=== PATIENT | female | born 1975 | race Caucasian/White ===

== ENCOUNTER 2016-10-28 15:04 | Emergency (ER) | payer SELFPAY ==
[~2016-10-28 15:04] MED LIST: FERR325T PO; METR-1 PO; PROV10TA PO
[2016-10-28 15:05] VITALS: BP 117/80; PULSE 106; RESP 15; TEMP 97.8; O2SAT 98
== END 2016-10-28 16:07 | disposition left against medical advice (07) ==
LOC: NED 15:04
DX: Z53.21 Procedure and treatment not carried out due to patient leaving prior to being seen by health care provider (principal)
CPT/HCPCS: 99281

== ENCOUNTER 2016-11-05 08:32 | Inpatient (IN) | payer OTHER ==
[~2016-11-05] VITALS: Ht 170.2 cm; Wt 55.2 kg
[2016-11-05 08:42] VITALS: BP 115/72; PULSE 94; RESP 22; TEMP 98.6; O2SAT 97
[2016-11-05] MEDS ORDERED: VIBR100C PO (08:47)
[2016-11-05] MEDS ORDERED: METR-1 PO (08:47)
[2016-11-05] MEDS ORDERED: SODIUM CHLOR 0.9% 1000 ML INJ 1,000 ML IV SCH (09:01)
[2016-11-05] MEDS ORDERED: HYDROmorphone HCL PF 1 MG/ML VIAL IVS ONE (09:15)
[2016-11-05] MEDS ORDERED: ONDANSETRON HCL 4 MG/2 ML VIAL IVP ONE (09:15)
[2016-11-05] MEDS ORDERED: SODIUM CHLORIDE 0.9% FLUSH 10 ML FLUSH IV FLUSH PRN (09:15)
--- NOTE | 2016-11-05 09:24 | PD ---
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 She states she is currently taking her PID medication. The patient also reports that she's had a history of anemia for which she's had to have a transfusion. She reports starting bleeding today. She also reports green-yellow discharge. The patient denies any fevers, chills. The patient is screaming out profanities in between the questioning. There are no other complaints time my examination. PFSH Past Medical History Anemia: Yes Blood Disorders: Yes ("GENETIC BLEEDING DISORDER") Bipolar Disorder: Yes Anxiety: Yes Depression: Yes Heart Rhythm Problems: No Cancer: No Cardiovascular Problems: No High Cholesterol: No Chest Pain: No Congestive Heart Failure: No Cerebrovascular Accident: No Diabetes: No Diminished Hearing: No Endocrine: No Genitourinary: No Hepatitis: Yes (TYPE C) Immune Disorder: No Musculoskeletal: No Neurologic: Yes Psychiatric: Yes (PTSD, ADHD) Reproductive: Yes (PT C/O " HEAVY MENSTRAL FLOW") Respiratory: No Integumentary: Yes (MULTIPLE SORES WITH SCABS, PT STATES " I PICK") Migraines: Yes Seizures: Yes Thyroid Disease: No Influenza Vaccination: Yes ?: Unknown : 3 Para: 1 Miscarriage: 1 : 1 Tubal Ligation: Yes Past Surgical History Arteriovenous Shunt: No Gynecologic Surgery: Yes (BIOPSIES ) Insulin Pump: No Joint Replacement: Yes (ACL REPAIR RIGHT KNEE) Social History Alcohol Use: No (denies) Tobacco Use: No (PT STATES STOPPED YESTERDAY) Substance Use: Yes (SMOKES CRACK ) Allergies-Medications (Allergen,Severity, Reaction): Coded Allergies: Contrast Media (Verified Allergy, Severe, Anaphylaxis- THROAT CLOSES, HIVES, 11/05/16) Codeine (Verified Adverse Reaction, Severe, Nausea/Vomiting, 11/05/16) Reported Meds & Prescriptions Reported Meds & Active Scripts Active Ferrous Sulfate 325 Mg Tab 325 Mg PO BID 30 Days Reported Vibramycin (Doxycycline Hyclate) 100 Mg Cap 100 Mg PO BID Flagyl (Metronidazole) 500 Mg Tab 500 Mg PO BID Review of Systems Except as stated in HPI: all other systems reviewed are Neg HENT: No: Headaches, Vertigo Respiratory: No: Cough, Shortness of Breath Gastrointestinal: Positive: Nausea, Abdominal Pain (pelvic), No: Vomiting Genitourinary: Positive: Pelvic Pain, Discharge, Vaginal Bleeding, No: Dysuria , Nocturia Musculoskeletal: No: Weakness, Pain Neurologic: No: Weakness, Dizziness, Headache Physical Exam Narrative GENERAL: Thin ill appearing female in no obvious respiratory distress. The patient is SKIN: Focused skin assessment warm/dry. HEAD: Atraumatic. Normocephalic. EYES: Pupils equal and round. No scleral icterus. No injection or drainage. ENT: No nasal bleeding or discharge. Mucous membranes pink and moist. NECK: Trachea midline. No JVD. CARDIOVASCULAR: Regular rate and rhythm. No murmur appreciated. RESPIRATORY: No accessory muscle use. Clear to auscultation. Breath sounds equal bilaterally. GASTROINTESTINAL: Abdomen soft, non-tender, nondistended. Hepatic and splenic margins not palpable. MUSCULOSKELETAL: No obvious deformities. No clubbing. No cyanosis. No edema. NEUROLOGICAL: Awake and alert. No obvious cranial nerve deficits. Motor grossly within normal limits. Normal speech. PSYCHIATRIC: Appropriate mood and affect; insight and judgment normal. Data Data Last Documented VS Vital Signs Date Time Temp Pulse Resp B/P Pulse Ox O2 Delivery O2 Flow Rate FiO2 11/05/16 09:28 16 97 Room Air 11/05/16 08:42 98.6 94 115/72 Orders Complete Blood Count With Diff (11/05/16 09:01) Comprehensive Metabolic Panel (11/05/16 09:01) Lipase (11/05/16 09:01) Urinalysis - C+S If Indicated (11/05/16 09:01) Iv Access Insert/Monitor (11/05/16 09:01) Ecg Monitoring (11/05/16 09:01) Oximetry (11/05/16 09:01) Ondansetron Inj (Zofran Inj) (11/05/16 09:15) Sodium Chlor 0.9% 1000 Ml Inj (Ns 1000 M (11/05/16 09:01) Sodium Chloride 0.9% Flush (Ns Flush) (11/05/16 09:15) Hydromorphone Pf Inj (Dilaudid Pf Inj) (11/05/16 09:15) Ed Urine Pregnancytest Poc (11/05/16 09:01) Wet Prep Profile (11/05/16 09:01) Gc And Chlamydia Pcr (11/05/16 09:01) Ct Abd/Pel W/O Iv Contrast (11/05/16 10:02) Admit To Inpatient (11/05/16 ) Inpatient Certification (11/05/16 ) Diet Regular Basic (11/05/16 Lunch) Activity Oob Ad Laura (11/05/16 11:32) Vital Signs (Adult) [id number] (11/05/16 11:32) Doxycycline Inj (Vibramycin Inj) (11/05/16 11:30) Cefoxitin Inj (Mefoxin Inj) (11/05/16 11:30) Admit Order (Ed Use Only) (11/05/16 11:34) Labs Laboratory Tests Test 11/05/16 11/05/16 09:00 09:45 White Blood Count 21.9 TH/MM3 Red Blood Count 3.98 MIL/MM3 Hemoglobin 12.3 GM/DL Hematocrit 36.0 % Mean Corpuscular Volume 90.2 FL Mean Corpuscular Hemoglobin 31.0 PG Mean Corpuscular Hemoglobin 34.3 % Concent Red Cell Distribution Width 13.6 % Platelet Count 284 TH/MM3 Mean Platelet Volume 6.8 FL Neutrophils (%) (Auto) 96.5 % Lymphocytes (%) (Auto) 2.3 % Monocytes (%) (Auto) 1.0 % Eosinophils (%) (Auto) 0.1 % Basophils (%) (Auto) 0.1 % Neutrophils # (Auto) 21.1 TH/MM3 Lymphocytes # (Auto) 0.5 TH/MM3 Monocytes # (Auto) 0.2 TH/MM3 Eosinophils # (Auto) 0.0 TH/MM3 Basophils # (Auto) 0.0 TH/MM3 CBC Comment DIFF FINAL Differential Comment Urine Color YELLOW Urine Turbidity CLEAR Urine pH 5.5 Urine Specific [place] 1.010 Urine Protein TRACE mg/dL Urine Glucose (UA) NEG mg/dL Urine Ketones NEG mg/dL Urine Occult Blood MOD Urine Nitrite NEG Urine Bilirubin NEG Urine Urobilinogen LESS THAN 2.0 MG/DL Urine Leukocyte Esterase TRACE Urine RBC 1 /hpf Urine WBC 1 /hpf Urine Squamous Epithelial 2 /hpf Cells Urine Mucus FEW /lpf Microscopic Urinalysis Comment CULT NOT INDICATED Sodium Level 131 MEQ/L Potassium Level 3.7 MEQ/L Chloride Level 100 MEQ/L Carbon Dioxide Level 17.7 MEQ/L Anion Gap 13 MEQ/L Blood Urea Nitrogen 8 MG/DL Creatinine 1.02 MG/DL Estimat Glomerular Filtration 60 ML/MIN Rate Random Glucose 194 MG/DL Calcium Level 8.3 MG/DL Total Bilirubin 0.4 MG/DL Aspartate Amino Transf 43 U/L (AST/SGOT) Alanine Aminotransferase 29 U/L (ALT/SGPT) Alkaline Phosphatase 96 U/L Total Protein 7.0 GM/DL Albumin 2.5 GM/DL Lipase 78 U/L Clue Cells (Wet Prep) NONE SEEN Vaginal Trichomonas (Wet Prep) NONE SEEN Vaginal Yeast (Wet Prep) NONE SEEN MDM Medical Decision Making Medical Screen Exam Complete: Yes Emergency Medical Condition: Yes Differential Diagnosis PID versus cystitis versus hydrosalpinx versus endometriosis Narrative Course 41-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 The patient has a white count 21,000. CT scan without oral or IV contrast secondary to her allergies, shows diffuse abnormalities with cystic structures in her pelvis. It is suspicious for hydrosalpinx versus severe PID. Given this, she will be admitted to the hospital started on I V antibiotics. She's been started on doxycycline and cefoxitin. The case was discussed with Dr. Garnica, [facility], who agrees for the admission. She will place a consult with ANATOMIC PATHOLOGY MANAGER. Diagnosis Primary Impression: Acute pelvic inflammatory disease (PID) Additional Impressions: Leukocytosis History of cocaine abuse Admitting Information Admitting Physician Requests: Admit James Esposito MD Nov 05, 2016 09:24
[2016-11-05 09:27] LABS: AUTOMATED NEUTROPHIL # 21.1 TH/MM3 (1.8-7.7); BASOPHIL % 0.1 % (0.0-2.0); EOSINOPHIL % 0.1 % (0.0-4.0); HEMO FLAGS DIFF FINAL; LYMPH % 2.3 % (9.0-44.0); LYMPHOCYTE # 0.5 TH/MM3 (1.0-4.8); MEAN CELL VOLUME 90.2 FL (80.0-100.0); MEAN CORPUSCULAR HGB CONC 34.3 % (32.0-36.0); NEUT % 96.5 % (16.0-70.0); PLATELET COUNT 284 TH/MM3 (150-450); RED BLOOD COUNT 3.98 MIL/MM3 (4.00-5.30); RED CELL DISTRIBUTION WIDTH 13.6 % (11.6-17.2); WHITE BLOOD COUNT 21.9 TH/MM3 (4.0-11.0)
[2016-11-05 09:28] VITALS: RESP 16; O2SAT 97
[2016-11-05 09:46] LABS: BLOOD, URINE MOD (NEG); COMMENT (UR) CULT NOT INDICATED; CULTURE IF INDICATED CULT NOT INDICATED; GLUCOSE,URINE NEG (NEG); KETONE, URINE NEG (NEG); MUCUS URINE FEW /lpf (OCC); NITRITE,URINE NEG (NEG); PH, URINE 5.5 (5.0-8.5); SQUAMOUS EPITHELIAL CELL URINE 2 /hpf (0-5); URINE COLOR YELLOW (YELLW/STRAW)
[2016-11-05 10:05] LABS: ALKALINE PHOSPHATASE 96 U/L (45-117); ALT (GPT) 29 U/L (10-53); ANION GAP 13 MEQ/L (5-15); AST (GOT) 43 U/L (15-37); BICARBONATE 17.7 MEQ/L (21.0-32.0); BLOOD UREA NITROGEN 8 MG/DL (7-18); CHLORIDE 100 MEQ/L (98-107); GLOMERULAR FILTRATION RATE 60 ML/MIN (>89); SODIUM (NA) 131 MEQ/L (136-145); TOTAL BILIRUBIN ADULT 0.4 MG/DL (0.2-1.0)
[2016-11-05 10:11] LABS: POTASSIUM 3.7 MEQ/L (3.5-5.1)
--- NOTE | 2016-11-05 11:00 | RADRPT ---
EXAM DATE/TIME: 11/05/2016 10:37 [place] COMPARISON: US PELVIS,COMP,W DOPPLER, June 05, 2016, 8:11. INDICATIONS : Severe pelvic pain with elevated white blood cells. History of pelvic inflammatory disease. ORAL CONTRAST: No oral contrast ingested. RADIATION DOSE: 4.66 CTDIvol (mGy) MEDICAL HISTORY : Seizures. Hepatitis C. SURGICAL HISTORY : Tubal ligation. ENCOUNTER: Initial ACUITY: 2 weeks PAIN SCALE: 5/10 LOCATION: Left pelvis TECHNIQUE: Volumetric scanning of the abdomen and pelvis was performed. Using automated exposure control and ad justment of the mA and/or kV according to patient size, radiation dose was kept as low as reasonably achievable to obtain optimal diagnostic quality images. FINDINGS: The limited portion of the lung base visualized is clear. The appearance of the liver, spleen, pancreas, adrenal glands and kidneys is within normal limits. Th ere is no retroperitoneal adenopathy. No free air or free fluid is seen within the upper abdomen. Imaging through the pelvis demonstrates multiple large cystic structures seen within the adnexal ashanti ons bilaterally. This is very difficult to visualize by noncontrast CT imaging. Differential consider ations would include large ovarian cyst versus hydrosalpinx. PID/tubo-ovarian abscess would be a cons ideration as well the. Post contrast imaging would be warranted for further assessment. No iliac or i nguinal adenopathy is seen. The visualized bony structures are intact. CONCLUSION: 1. Abnormal examination demonstrating large cystic structures arising from the adnexa and filling the low pelvis bilaterally. There are cystic areas evident measuring up to 7.3 cm in size. This is very difficult to visualize due to the lack of intravenous and oral contrast. Differential considerations would include hydrosalpinx and PID/TOA, bilateral cystic adnexal masses. Post contrast imaging may be of benefit for further assessment. Manuel Turk MD on November 05, 2016 at 10:50 Board Certified Radiologist. This report was verified electronically.
[2016-11-05] MEDS ORDERED: DOXYCYCLINE INJ 100 MG in SODIUM CHLORIDE 0.9% INJ 100 ML IV ONE (11:30)
[2016-11-05] MEDS ORDERED: ceFOXitin INJ 2 GM in SODIUM CHLORIDE 0.9% INJ 100 ML IV ONE (11:30)
[2016-11-05 11:42] LABS: CHLAMYDIA PCR NOT DETECTED (NOT DETECT); NEISSERIA PCR NOT DETECTED (NOT DETECT)
[2016-11-05 12:45] VITALS: BP 122/70; PULSE 88; RESP 20; O2SAT 100
--- NOTE | 2016-11-05 16:21 | HHI.HP ---
[facility] [place] [facility] No Primary Care Physician Admission Diagnosis Severe pelvic inflammatory disease. leukocytosis. 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 about 2 weeks ago started complaining of lower abdominal pain patient. Also states that she just got out of correction about that time. Initially had some whitish yellowish brownish discharge. Patient states that she uses occasionally uses a suction cup during sex and sometimes cup get stuck there. She made sure that the man/customer uses a condom. Patient complains of fever or chills denies any dysuria but states frequent urination. Her last menstrual cycles was 3 weeks ago but periodically gets vaginal leading and spotting. Persistence of this pain prompted consult to ER and on evaluation was noted to have elevated white count and patient was made admitted for further management. Patient is not very consistent and not straightforward with her history. a lot of inconsistencies with her history occasionally evading some questions and doesn't answer directly. She admits to cocaine and crack use. Was seen here sometime in June for abnormal uterine bleeding. Workup then showed a right ovarian complex mass. Patient was supposed to follow-up with [facility]SEMBLER service as outpatient but patient failed to do so. Was seen at [facility] when she had the same complaints and was prescribed October 29 doxycycline 100 mg twice a day and metronidazole 500 mg every 12. Review of Systems Constitutional: COMPLAINS OF: Fever Endocrine: COMPLAINS OF: Abnorml menstrual pattern Eyes: DENIES: Blurred vision, Diplopia, Eye inflammation, Eye pain, Vision loss , Photosensitivity, Double Vision Ears, nose, mouth, throat: DENIES: Tinnitus, Hearing loss, Vertigo, Nasal discharge, Oral lesions, Throat pain, Hoarseness, Ear Pain, Running Nose, Epistaxis, Sinus Pain, Toothache, Odynophagia Respiratory: DENIES: Apneas, Cough, Snoring, Wheezing, Hemoptysis, Sputum production, Shortness of breath Cardiovascular: DENIES: Chest pain, Palpitations, Syncope, Dyspnea on Exertion , PND, Lower Extremity Edema, Orthopnea, Claudication Gastrointestinal: DENIES: Abdominal pain, Black stools, Bloody stools, Constipation, Diarrhea, Nausea, Vomiting, Difficulty Swallowing, Anorexia Genitourinary: COMPLAINS OF: Abnormal vaginal bleeding Musculoskeletal: DENIES: Joint pain, Muscle aches, Stiffness, Joint Swelling, Back pain, Neck pain Integumentary: DENIES: Abnormal pigmentation, Pruritus, Rash, Nail changes, Breast masses, Breast skin changes, Nipple discharge Hematologic/lymphatic: DENIES: Bruising, Lymphadenopathy Immunologic/allergic: DENIES: Eczema, Urticaria Neurologic: DENIES: Abnormal gait, Headache, Localized weakness, Paresthesias, Seizures, Speech Problems, Tremor, Poor Balance Psychiatric: DENIES: Anxiety, Confusion, Mood changes, Depression, Hallucinations, Agitation, Suicidal Ideation, Homicidal Ideation, Delusions Past Family Social History Past Medical History History of PID History of abnormal uterine bleeding. Was actually here months ago and was supposed to follow-up with [facility]ER as an outpatient for further evaluation. Patient failed to do so. Past Surgical History Left forearm surgery 22 years old Right knee anterior cruciate ligament arthroscopic surgery 10 years ago Reported Medications Doxycycline Metronidazole Both from October 29 still on it Allergies: Coded Allergies: Contrast Media (Verified Allergy, Severe, Anaphylaxis- THROAT CLOSES, HIVES, 11/05/16) Codeine (Verified Adverse Reaction, Severe, Nausea/Vomiting, 11/05/16) Family History Positive family history of colon cancer mother Grandmother with lung cancer with breast cancer Grandfather with lung cancer with metastases Social History Smokes a pack of cigarettes a day quit yesterday Admits to crack use last use yesterday Used to drink 6 pack per 2 weeks ago Physical Exam Vital Signs Vital Signs Date Time Temp Pulse Resp B/P Pulse Ox O2 Delivery O2 Flow Rate FiO2 11/05/16 12:45 88 20 122/70 100 Room Air 11/05/16 09:28 16 97 Room Air 11/05/16 08:42 98.6 94 22 115/72 97 Physical Exam GENERAL: Awake alert appears very jittery SKIN: Cool and dry. HEAD: Atraumatic. Normocephalic. No temporal or scalp tenderness. EYES: Pupils equal round and reactive. Extraocular motions intact. No scleral icterus. No injection or drainage. ENT: Nose without bleeding, purulent drainage or septal hematoma. Throat without erythema, Uvula midline. Airway patent. NECK: Trachea midline. No JVD or lymphadenopathy. Supple, nontender, no meningeal signs. CARDIOVASCULAR: Regular rate and rhythm without murmurs, gallops, or rubs. RESPIRATORY: Clear to auscultation. Breath sounds equal bilaterally. No wheezes , rales, or rhonchi. GASTROINTESTINAL: Abdomen soft, positive tenderness on the palpation of the left lower abdominal area, MUSCULOSKELETAL: Extremities without clubbing, cyanosis, or edema. No joint tenderness, effusion, or edema noted. No calf tenderness. Negative Homans sign bilaterally. NEUROLOGICAL: Awake and alert. Cranial nerves II through XII intact. Motor and sensory grossly within normal limits. Five out of 5 muscle strength in all muscle groups. Normal speech. Laboratory Laboratory Tests Test 11/05/16 11/05/16 09:00 09:45 White Blood Count 21.9 Red Blood Count 3.98 Hemoglobin 12.3 Hematocrit 36.0 Mean Corpuscular Volume 90.2 Mean Corpuscular Hemoglobin 31.0 Mean Corpuscular Hemoglobin 34.3 Concent Red Cell Distribution Width 13.6 Platelet Count 284 Mean Platelet Volume 6.8 Neutrophils (%) (Auto) 96.5 Lymphocytes (%) (Auto) 2.3 Monocytes (%) (Auto) 1.0 Eosinophils (%) (Auto) 0.1 Basophils (%) (Auto) 0.1 Neutrophils # (Auto) 21.1 Lymphocytes # (Auto) 0.5 Monocytes # (Auto) 0.2 Eosinophils # (Auto) 0.0 Basophils # (Auto) 0.0 CBC Comment DIFF FINAL Differential Comment Urine Color YELLOW Urine Turbidity CLEAR Urine pH 5.5 Urine Specific [place] 1.010 Urine Protein TRACE Urine Glucose (UA) NEG Urine Ketones NEG Urine Occult Blood MOD Urine Nitrite NEG Urine Bilirubin NEG Urine Urobilinogen LESS THAN 2.0 Urine Leukocyte Esterase TRACE Urine RBC 1 Urine WBC 1 Urine Squamous Epithelial 2 Cells Urine Mucus FEW Microscopic Urinalysis Comment CULT NOT INDICATED Sodium Level 131 Potassium Level 3.7 Chloride Level 100 Carbon Dioxide Level 17.7 Anion Gap 13 Blood Urea Nitrogen 8 Creatinine 1.02 Estimat Glomerular Filtration 60 Rate Random Glucose 194 Calcium Level 8.3 Total Bilirubin 0.4 Aspartate Amino Transf 43 (AST/SGOT) Alanine Aminotransferase 29 (ALT/SGPT) Alkaline Phosphatase 96 Total Protein 7.0 Albumin 2.5 Lipase 78 Clue Cells (Wet Prep) NONE SEEN Vaginal Trichomonas (Wet Prep) NONE SEEN Vaginal Yeast (Wet Prep) NONE SEEN Chlamydia trachomatis DNA NOT DETECTED (PCR) Neisseria gonorrhoeae DNA NOT DETECTED (PCR) Result Diagram: 11/05/16 0900 11/05/16 0900 Imaging Last Impressions Abdomen/Pelvis CT 11/05/16 1002 Signed Impressions: Service Date/Time: Saturday, November 05, 2016 10:37 - CONCLUSION: 1. Abnormal examination demonstrating large cystic structures arising from the adnexa and filling the low pelvis bilaterally. There are cystic areas evident measuring up to 7.3 cm in size. This is very difficult to visualize due to the lack of intravenous and oral contrast. Differential considerations would include hydrosalpinx and PID/TOA, bilateral cystic adnexal masses. Post contrast imaging may be of benefit for further assessment. Manuel Turk MD Septic Shock Reassessment Heart: Regular rate and rhythm Lungs: Clear Skin: Warm Peripheral Pulses: Bounding Right Radial Bounding Left Radial Bounding Right Popliteal Bounding Left Popliteal Bounding Right Dorsalis Pedis Bounding Left Dorsalis Pedis Bounding Right Posterior Tibial Bounding Left Posterior Tibial Capillary Refill: Brisk Assessment and Plan Assessment and Plan 41-year-old female presenting with Sepsis secondary to severe pelvic inflammatory disease rule out possible tubo- ovarian abscess Will start patient on Cefoxitin 2 g IV every 6 Doxycycline 100 mg twice a day We'll consult [facility] service for recommendation Percocet when necessary for pain History of abnormal uterine bleeding H&H stable will consult [facility]ER Polysubstance abuse patient counseled Discussed Condition With patient Physician Certification 2 Midnight Certification Type: Admission for Inpatient Services Order for Inpatient Services The services are ordered in accordance with Medicare regulations or non- Medicare payer requirements, as applicable. In the case of services not specified as inpatient-only, they are appropriately provided as inpatient services in accordance with the 2-midnight benchmark. Estimated LOS (days): 3 days is the estimated time the patient will need to remain in the hospital, assuming treatment plan goals are met and no additional complications. Post-Hospital Plan: Not yet determined Gera Garnica MD Nov 05, 2016 16:21
[2016-11-05 16:45] LABS: AMPHETAMINE, URINE NEG (NEG); BARBITURATES, URINE NEG (NEG); COCAINE, URINE POS (NEG)
[2016-11-05] MEDS ORDERED: oxyCODONE/ACETAMINOPHEN 5 MG/325 MG TAB PO PRN (16:45)
[2016-11-05] MEDS: NS + KCL 20 MEQ INJ 1,000 ML IV SCH (17:00)
[2016-11-05] MEDS ORDERED: PILL SPLITTER OTHER PRN (17:00)
[2016-11-05 17:37] VITALS: BP 115/69; PULSE 98; RESP 16; O2SAT 97
[2016-11-05] MEDS: DOXYCYCLINE HYCLATE 100 MG CAP PO SCH (19:57)
[2016-11-05] MEDS: traMADol/ACETAMINOPHEN 37.5/325 1 TAB PO PRN (19:58)
[2016-11-05 20:00] VITALS: BP 128/75; PULSE 93; RESP 24; TEMP 100.3; O2SAT 97
--- NOTE | 2016-11-05 20:13 | PD.CONS ---
HPI Chief Complaint Pelvic pain Date Seen: Nov 05, 2016 Travel History International Travel<30 Days: No Contact w/Intl Traveler<30Days: No Known Affected Area: No History of Present Illness HPI 'this patient's 41-year-old white female A2 who presents with a week history of severe worsening pelvic pain, with history of pelvic inflammatory disease treated as an outpatient her last emergency room visit with oral antibiotics. She now has a very bad pelvic pain, prior to her menses starting which is ongoing now she had yellow brown discharge as well. 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 Alcohol Use: Yes Tobacco Use: Yes Substance Abuse: Yes Allergies-Medications (Allergen,Severity, Reaction): Coded Allergies: Contrast Media (Verified Allergy, Severe, Anaphylaxis- THROAT CLOSES, HIVES, 11/05/16) Codeine (Verified Adverse Reaction, Severe, Nausea/Vomiting, 11/05/16) Home Meds Active Scripts Ferrous Sulfate 325 Mg [id number] Mg PO BID 30 Days Ref 1 Prov:Gera Garnica MD 06/06/16 Discontinued Reported Medications Doxycycline Hyclate (Vibramycin)100 Mg [id number] Mg PO BID Ref 0 11/05/16 Metronidazole (Flagyl)500 Mg [id number] Mg PO BID Ref 0 11/05/16 Metronidazole (Flagyl)500 Mg [id number] Mg PO BID Ref 0 06/05/16 Discontinued Scripts Medroxyprogesterone Acetate (Provera)10 Mg Tab10 Mg PO DAILY 30 Days Ref 0 take every night for 30 days while you seek medical attention Prov:Joanna Hurtado MD 06/05/16 Review of Systems General / Constitutional: No: Fever, Weight Gain, Chills, Other Eyes: No: Diploplia, Blurred Vision, Visual changes, Pain, Photophobia HENT: No: Headaches, Vertigo, Lightheadedness Cardiovascular: No: Irregular Rhythm, Chest Pain or Discomfort, Palpitations, Tachycardia, Syncope, Varicosities, Edema, Cyanosis Respiratory: No: Cough, Short of Breath, Other Gastrointestinal: Abdominal Pain Genitourinary: Pelvic Pain, Vaginal Bleeding Musculoskeletal: No: Limited ROM, Weakness, Cramping, Edema, Pain Skin: No Rash, No Itching, No Dryness, No Lumps, No Change in Pigmentation, No Change in Nails, No Alopecia, No Lesions Neurologic: No: Weakness, Dizziness, Syncope, Focal Abnormalities, Coordination Problem, Headache, Slurred Speech, Seizures Psychiatric: No: Depression, Suicidal Ideations, Homicidal Ideation Endocrine: No: Heat Intolerance, Cold Intolerance, Polydipsia, Polyuria, Other Physical Exam Vital Signs Date Time Temp Pulse Resp B/P Pulse Ox O2 Delivery O2 Flow Rate FiO2 11/05/16 17:37 98 16 115/69 97 Room Air 11/05/16 12:45 88 20 122/70 100 Room Air 11/05/16 09:28 16 97 Room Air 11/05/16 08:42 98.6 94 22 115/72 97 Narrative GENERAL: thin patient. In moderate distress SKIN: Warm and dry. Patient feels like she has a temperature her skin is quite hot HEAD: Normocephalic and atraumatic. EYES: No scleral icterus. No injection or drainage. ENT: No nasal drainage noted. Mucous membranes pink. Airway patent. NECK: Supple, trachea midline. No JVD. CARDIOVASCULAR: Regular rate and rhythm without murmurs, gallops, or rubs. RESPIRATORY: Breath sounds equal bilaterally. No accessory muscle use. BREASTS: Bilateral exam showed no masses , no retractions, no nipple discharge. ABDOMEN/GI: Abdomen firm, -tender, bowel sounds present, no rebound, positive guarding , or palpation there is a mass effect in the pelvic area that comes up midway between umbilicus and symphysis to be consistent with approximate 16 week size mass in the pelvis, Pelvic--normal external genitalia and vagina, the top of the vagina there is a mass effect across the pelvis that is exquisitely tender, as a typical bulging fluid-filled abscess to palpation difficult to feel as exam was extremely tender EXTREMITIES: No cyanosis or edema. BACK: Nontender without obvious deformity. No CVA tenderness. NEUROLOGICAL: Awake and alert. Motor and sensory grossly within normal limits. Five out of 5 muscle strength in all muscle groups. Normal speech. Data Data Orders Complete Blood Count With Diff (11/05/16 09:01) Comprehensive Metabolic Panel (11/05/16 09:01) Lipase (11/05/16 09:01) Urinalysis - C+S If Indicated (11/05/16 09:01) Iv Access Insert/Monitor (11/05/16 09:01) Ecg Monitoring (11/05/16 09:01) Oximetry (11/05/16 09:01) Ondansetron Inj (Zofran Inj) (11/05/16 09:15) Sodium Chlor 0.9% 1000 Ml Inj (Ns 1000 M (11/05/16 09:01) Sodium Chloride 0.9% Flush (Ns Flush) (11/05/16 09:15) Hydromorphone Pf Inj (Dilaudid Pf Inj) (11/05/16 09:15) Ed Urine Pregnancytest Poc (11/05/16 09:01) Wet Prep Profile (11/05/16 09:01) Gc And Chlamydia Pcr (11/05/16 09:) Ct Abd/Pel W/O Iv Contrast (11/05/16 10:02) Admit To Inpatient (11/05/16 ) Inpatient Certification (11/05/16 ) Diet Regular Basic (11/05/16 Lunch) Activity Oob Ad Laura (11/05/16 11:32) Vital Signs (Adult) [id number] (11/05/16 11:32) Doxycycline Inj (Vibramycin Inj) (11/05/16 11:30) Cefoxitin Inj (Mefoxin Inj) (11/05/16 11:30) Admit Order (Ed Use Only) (11/05/16 11:34) Lactic Acid Sepsis Protocol (11/05/16 16:10) Drug Screen, Random Urine (11/05/16 16:10) Specimen To Be Collected PRN (11/05/16 16:10) Cefoxitin Inj (Mefoxin Inj) (11/05/16 18:00) Doxycycline (Vibramycin) (11/05/16 21:00) Consult Gynecology (11/05/16 ) Ferrous Sulfate (Ferrous Sulfate) (11/05/16 21:00) Tramadol-Acetamin 37.5-325 Mg (Ultracet (11/05/16 16:45) Methadone (Dolophine) (11/06/16 09:00) (Hub Use Only)Inp Phy Cons/Ref (11/05/16 ) Ferrous Sulfate (Ferrous Sulfate) (11/06/16 09:00) Ns + Kcl 20 Meq Inj (Ns + Kcl 20 Meq Inj (11/05/16 17:00) Pill Splitter (Pill Splitter) (11/05/16 17:00) Labs CT scan shows large cystic masses in the pelvis filling the pelvis essentially with at least 1 area measuring over 7 cm and posterior cul-de-sac area but it there is multiple cystic masses consistent with abscess loculations Laboratory Tests Test 11/05/16 11/05/16 11/05/16 09:00 09:45 16:25 White Blood Count 21.9 Red Blood Count 3.98 Hemoglobin 12.3 Hematocrit 36.0 Mean Corpuscular Volume 90.2 Mean Corpuscular Hemoglobin 31.0 Mean Corpuscular Hemoglobin 34.3 Concent Red Cell Distribution Width 13.6 Platelet Count 284 Mean Platelet Volume 6.8 Neutrophils (%) (Auto) 96.5 Lymphocytes (%) (Auto) 2.3 Monocytes (%) (Auto) 1.0 Eosinophils (%) (Auto) 0.1 Basophils (%) (Auto) 0.1 Neutrophils # (Auto) 21.1 Lymphocytes # (Auto) 0.5 Monocytes # (Auto) 0.2 Eosinophils # (Auto) 0.0 Basophils # (Auto) 0.0 CBC Comment DIFF FINAL Differential Comment Urine Color YELLOW Urine Turbidity CLEAR Urine pH 5.5 Urine Specific [place] 1.010 Urine Protein TRACE Urine Glucose (UA) NEG Urine Ketones NEG Urine Occult Blood MOD Urine Nitrite NEG Urine Bilirubin NEG Urine Urobilinogen LESS THAN 2.0 Urine Leukocyte Esterase TRACE Urine RBC 1 Urine WBC 1 Urine Squamous Epithelial 2 Cells Urine Mucus FEW Microscopic Urinalysis Comment CULT NOT INDICATED Sodium Level 131 Potassium Level 3.7 Chloride Level 100 Carbon Dioxide Level 17.7 Anion Gap 13 Blood Urea Nitrogen 8 Creatinine 1.02 Estimat Glomerular Filtration 60 Rate Random Glucose 194 Calcium Level 8.3 Total Bilirubin 0.4 Aspartate Amino Transf 43 (AST/SGOT) Alanine Aminotransferase 29 (ALT/SGPT) Alkaline Phosphatase 96 Total Protein 7.0 Albumin 2.5 Lipase 78 Urine Opiates Screen NEG Urine Barbiturates Screen NEG Urine Amphetamines Screen NEG Urine Benzodiazepines Screen NEG Urine Cocaine Screen POS Urine Cannabinoids Screen NEG Clue Cells (Wet Prep) NONE SEEN Vaginal Trichomonas (Wet Prep) NONE SEEN Vaginal Yeast (Wet Prep) NONE SEEN Chlamydia trachomatis DNA NOT DETECTED (PCR) Neisseria gonorrhoeae DNA NOT DETECTED (PCR) Lactic Acid Level 1.9 MDM Interpretation(s) 41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 Her CT scan is consistent with a large multiloculated abscess in the pelvis with large cystic areas largest being 7 cm in the cul-de- sac area, her exam also was consistent with same, white blood cell count is 21.9 with a large left shift also consistent with abscess Plan Plan for the patient to be on broad-spectrum IV antibiotics for tubo-ovarian abscess, and hopefully we'll see improvement in her symptoms decrease in fever and white count as well as her pain after approximate 72 hours of IV antibiotics however if she is not improved and it's recommended that she have laparotomy and EVELYN/BSO and removal of abscess. We'll continue to follow along with you. Dr. Basilio was the ORTHOTIC ASSISTANT doctor attending shipping lead person [facility] and will notify her of the patient's admission and status Admitting diagnosis: Severe pelvic inflammatory disease. leukocytosis. Diagnosis: tubo- ovarian abscess Dennis Jordan II, MD Nov 05, 2016 20:13
[2016-11-05] MEDS ORDERED: metroNIDAZOLE 500 MG INJ 100 ML IV ONE (20:30)
[2016-11-05] MEDS: metroNIDAZOLE 500 MG INJ 100 ML IV SCH (21:00)
[2016-11-05] MEDS: ceFOXitin INJ 2 GM in SODIUM CHLORIDE 0.9% INJ 100 ML IV SCH (21:00)
[2016-11-05] MEDS ORDERED: FERROUS SULFATE 325 MG (65 MG ELEMENTAL IRON) TAB PO SCH (21:00)
[2016-11-05 23:22] VITALS: BP 103/57; PULSE 104; RESP 18; TEMP 100.4; O2SAT 97
[2016-11-06] MEDS: traMADol/ACETAMINOPHEN 37.5/325 1 TAB PO PRN ×4 (01:31→20:49)
[2016-11-06] MEDS: ceFOXitin INJ 2 GM in SODIUM CHLORIDE 0.9% INJ 100 ML IV SCH ×5 (01:33→23:24)
[2016-11-06] MEDS: NS + KCL 20 MEQ INJ 1,000 ML IV SCH ×3 (01:34→23:23)
[2016-11-06 04:34] VITALS: BP 109/59; PULSE 84; RESP 18; TEMP 98.2; O2SAT 100
[2016-11-06] MEDS: metroNIDAZOLE 500 MG INJ 100 ML IV SCH ×3 (05:57→20:48)
[2016-11-06] MEDS: DOXYCYCLINE HYCLATE 100 MG CAP PO SCH ×2 (08:46→20:49)
[2016-11-06] MEDS: FERROUS SULFATE 325 MG (65 MG ELEMENTAL IRON) TAB PO SCH (08:47)
[2016-11-06] MEDS: METHADONE HCL 10 MG TAB PO SCH (08:47)
[2016-11-06 10:25] VITALS: BP 105/61; PULSE 89; RESP 18; TEMP 98.5; O2SAT 97
[2016-11-06 12:00] VITALS: BP 109/59; PULSE 94; RESP 18; TEMP 97.3; O2SAT 99
--- NOTE | 2016-11-06 12:22 | HHI.PR ---
Subjective Remarks po 100% still having some lower abdominal discomfort states having vaginal bleeding- "a clot" voiding well- no dysuria Objective Vitals Vital Signs Date Time Temp Pulse Resp B/P Pulse Ox O2 Delivery O2 Flow Rate FiO2 11/06/16 10:25 98.5 89 18 105/61 97 11/06/16 07:40 Room Air 11/06/16 04:34 98.2 84 18 109/59 100 11/05/16 23:22 100.4 104 18 103/57 97 11/05/16 20:06 Room Air 11/05/16 20:00 100.3 93 24 128/75 97 11/05/16 17:37 98 16 115/69 97 Room Air 11/05/16 12:45 88 20 122/70 100 Room Air I/O 11/05/16 11/05/16 11/05/16 11/06/16 11/06/16 11/06/16 07:00 15:00 23:00 07:00 15:00 23:00 Intake Total 480 ml 240 ml Output Total 700 ml Balance 480 ml -460 ml Intake Oral 480 ml 240 ml Output Urine Total 700 ml # Voids 4 # Bowel Movements 0 0 Result Diagram: 11/05/16 0900 11/05/16 0900 Imaging Last Impressions Abdomen/Pelvis CT 11/05/16 1002 Signed Impressions: Service Date/Time: Saturday, November 05, 2016 10:37 - CONCLUSION: 1. Abnormal examination demonstrating large cystic structures arising from the adnexa and filling the low pelvis bilaterally. There are cystic areas evident measuring up to 7.3 cm in size. This is very difficult to visualize due to the lack of intravenous and oral contrast. Differential considerations would include hydrosalpinx and PID/TOA, bilateral cystic adnexal masses. Post contrast imaging may be of benefit for further assessment. Manuel Turk MD Objective Remarks awake and alert, oriented x 3 anicteric lungs clear regular rhythm abdomen- soft, good bowel sounds, tender on deep palpation of lower abdomen- right> left extremities no edema A/P Assessment and Plan 41-year-old female presenting with Sepsis secondary to severe pelvic inflammatory disease with tubo-ovarian abscess Cefoxitin 2 g IV every 6 Doxycycline 100 mg twice a day Metronidazole 500 mg IV q8 appreciated Gyne ff patient Percocet when necessary for pain check CBC Abnormal uterine bleeding CBC Gyne ff Polysubstance abuse patient counseled po pain meds Gera Loza MD Nov 06, 2016 12:22
--- NOTE | 2016-11-06 12:51 | HHI.PR ---
SECOND CLASS WELDER Note Note Patient is a 41-year-old female who was admitted yesterday with fever leukocytosis and a pelvic mass consistent with a tubo-ovarian abscess. Patient was started on IV antibiotics she is presently afebrile. After 48 hours of IV antibiotics would consider interventional radiology for drainage of abscess. This abscess is easily palpable in the cul-de-sac. Dr. Basilio is the FITNESS WORKER on- call and I have discussed this patient with her in the event that surgical drainage is necessary. For now would recommend continuation of antibiotics and reassessment for drainage of 48 hours. Allie Barcenas MD Nov 06, 2016 12:51
[2016-11-06 16:00] VITALS: BP 109/63; PULSE 98; RESP 18; TEMP 100.2; O2SAT 97
[2016-11-06 20:08] VITALS: BP 110/55; PULSE 100; RESP 16; TEMP 98.5; O2SAT 98
[2016-11-06 23:22] VITALS: BP 108/55; PULSE 93; RESP 16; TEMP 97.5; O2SAT 95
[2016-11-07] MEDS: traMADol/ACETAMINOPHEN 37.5/325 1 TAB PO PRN ×5 (00:20→20:04)
[2016-11-07 03:52] VITALS: BP 106/59; PULSE 86; RESP 16; TEMP 98; O2SAT 97
[2016-11-07] MEDS: ceFOXitin INJ 2 GM in SODIUM CHLORIDE 0.9% INJ 100 ML IV SCH ×4 (04:31→23:37)
[2016-11-07] MEDS: metroNIDAZOLE 500 MG INJ 100 ML IV SCH ×3 (04:31→20:08)
[2016-11-07 07:07] LABS: AUTOMATED NEUTROPHIL # 16.6 TH/MM3 (1.8-7.7); BASOPHIL % 0.2 % (0.0-2.0); EOSINOPHIL # 0.1 TH/MM3 (0-0.4); EOSINOPHIL % 0.6 % (0.0-4.0); HEMATOCRIT 30.4 % (35.0-46.0); HEMO FLAGS DIFF FINAL; LYMPH % 7.6 % (9.0-44.0); LYMPHOCYTE # 1.4 TH/MM3 (1.0-4.8); MEAN CELL VOLUME 90.6 FL (80.0-100.0); MEAN CORPUSCULAR HEMOGLOBIN 31.6 PG (27.0-34.0); MEAN CORPUSCULAR HGB CONC 34.9 % (32.0-36.0); MONO % 4.6 % (0.0-8.0); PLATELET COUNT 242 TH/MM3 (150-450); RED BLOOD COUNT 3.36 MIL/MM3 (4.00-5.30); RED CELL DISTRIBUTION WIDTH 13.6 % (11.6-17.2); WHITE BLOOD COUNT 19.1 TH/MM3 (4.0-11.0)
[2016-11-07 07:49] LABS: BICARBONATE 26.7 MEQ/L (21.0-32.0)
[2016-11-07 08:00] VITALS: BP 90/57; PULSE 87; RESP 18; TEMP 98.1; O2SAT 99
[2016-11-07] MEDS: NS + KCL 20 MEQ INJ 1,000 ML IV SCH ×2 (09:00→20:09)
[2016-11-07] MEDS: FERROUS SULFATE 325 MG (65 MG ELEMENTAL IRON) TAB PO SCH (09:28)
[2016-11-07] MEDS: METHADONE HCL 10 MG TAB PO SCH (09:28)
[2016-11-07] MEDS: DOXYCYCLINE HYCLATE 100 MG CAP PO SCH ×2 (09:28→20:03)
--- NOTE | 2016-11-07 11:45 | HHI.PR ---
CIGARETTE MACHINE FILLER Note Note S: Ms. Pereyra was afebrile with stable vital signs overnight. Patient reports that she is feeling okay at this time; she reports continued mild abdominal pain. Patient reports that she has had persistent vaginal bleeding/clots, but that it is recently decreased and is only mild this morning. Patient suspects that her menstruation is ending. O: GENERAL: Patient appears comfortable, in no acute distress. SKIN: Warm and dry, no rashes appreciated EYES: No scleral icterus, injection, or drainage. EOM grossly intact CARDIOVASCULAR: Regular rate and rhythm without murmurs. Normal peripheral perfusion in lower extremities. RESPIRATORY: Normal respiratory rate. Lungs clear to auscultation bilaterally. GASTROINTESTINAL: Abdomen soft, nondistended, minimal to no tenderness; no guarding or wincing. Bowel sounds normal. MUSCULOSKELETAL: No lower extremity swelling. No appreciated calf asymmetry. NEURO/PSYCH: Awake, alert, and oriented. Cranial nerves grossly normal. Grossly normal motor and sensory function. Vaginal exam: not performed today A/P: Sepsis/TOA Impression: Afebrile w/ stable vitals and abd exam. Leukocytosis downtrending: WBC 19.1 (11/07) <-- 21.9 (C4/5). Suspect patient may be stable for IR drainage of TOA. -Continue IV antibiotics per primary team -Cefoxitin 2 g IV q6hrs -Doxycycline 100 mg BID -Metronidazole 500 mg IV q8hrs -Discussed with Interventional Radiology 11/07 for possible drain placement: Per IR, cystic areas not deemed appropriate for drainage and that surgical intervention is required Management of other medical problems including substance abuse and pain control per primary team (Thad Warren MD R2) Collaborating MD Comments Patient seen and examined. Care discussed with resident team, planning IR consult for drainage. (Allie Barcenas MD) Thad Warren MD R2 Nov 07, 2016 11:44 Allie Barcenas MD Nov 11, 2016 10:54 Thad Warren MD R2 Nov 07, 2016 11:44
[2016-11-07 12:00] VITALS: BP 120/51; PULSE 85; RESP 18; TEMP 97.7; O2SAT 98
--- NOTE | 2016-11-07 12:55 | HHI.PR ---
Subjective Remarks abdominal pain better denies any vaginal discharge of bleeding complains of constipation - states [employer] works for her Objective Vitals Vital Signs Date Time Temp Pulse Resp B/P Pulse Ox O2 Delivery O2 Flow Rate FiO2 11/07/16 08:00 98.1 87 18 90/57 99 11/07/16 07:53 Room Air 11/07/16 05:32 18 11/07/16 03:52 98.0 86 16 106/59 97 11/06/16 23:22 97.5 93 16 108/55 95 11/06/16 20:50 Room Air 11/06/16 20:08 98.5 100 16 110/55 98 11/06/16 16:00 100.2 98 18 109/63 97 I/O 11/06/16 11/06/16 11/06/16 11/07/16 11/07/16 11/07/16 07:00 15:00 23:00 07:00 15:00 23:00 Intake Total 240 ml 1480 ml 480 ml 120 ml Output Total 700 ml Balance -460 ml 1480 ml 480 ml 120 ml Intake Oral 240 ml 480 ml 480 ml 120 ml IV Total 1000 ml Output Urine Total 700 ml # Voids 7 10 7 # Bowel Movements 0 0 0 Result Diagram: 11/07/16 0539 11/07/16 0539 Imaging Last Impressions Abdomen/Pelvis CT 11/05/16 1002 Signed Impressions: Service Date/Time: Saturday, November 05, 2016 10:37 - CONCLUSION: 1. Abnormal examination demonstrating large cystic structures arising from the adnexa and filling the low pelvis bilaterally. There are cystic areas evident measuring up to 7.3 cm in size. This is very difficult to visualize due to the lack of intravenous and oral contrast. Differential considerations would include hydrosalpinx and PID/TOA, bilateral cystic adnexal masses. Post contrast imaging may be of benefit for further assessment. Manuel Turk MD Objective Remarks awake and alert, oriented x 3 anicteric lungs clear regular rhythm abdomen- soft, good bowel sounds, decrease tenderness, no guarding extremities no edema A/P Assessment and Plan 41-year-old female presenting with Sepsis secondary to severe pelvic inflammatory disease with left tubo-ovarian abscess Cefoxitin 2 g IV every 6 Doxycycline 100 mg twice a day Metronidazole 500 mg IV q8 Gyne service- closely ff along with us- surgery vs I and D Percocet when necessary for pain ff CBC Abnormal uterine bleeding- no active bleeding this time Gyne ff Polysubstance abuse patient counseled Methadone 5 mg po daily po pain meds prn Constipation colace 100 mg po bid Patient up and ambulating Gera Garnica MD Nov 07, 2016 12:55
[2016-11-07] MEDS: DOCUSATE SODIUM 100 MG CAP PO SCH ×2 (13:00→20:04)
[2016-11-07] MEDS: ONDANSETRON HCL 4 MG/2 ML VIAL IV PUSH PRN (15:05)
[2016-11-07 16:00] VITALS: BP 110/60; PULSE 83; RESP 18; TEMP 98; O2SAT 94
[2016-11-07 20:00] VITALS: BP 105/58; PULSE 80; RESP 20; TEMP 97.7; O2SAT 99
[2016-11-08 00:03] VITALS: BP 102/58; PULSE 84; RESP 20; TEMP 98.5; O2SAT 98
[2016-11-08] MEDS: traMADol/ACETAMINOPHEN 37.5/325 1 TAB PO PRN ×5 (00:29→21:26)
[2016-11-08] MEDS: ONDANSETRON HCL 4 MG/2 ML VIAL IV PUSH PRN ×4 (00:31→21:28)
[2016-11-08 04:00] VITALS: BP 108/64; PULSE 71; RESP 20; TEMP 97.9; O2SAT 99
[2016-11-08] MEDS: ceFOXitin INJ 2 GM in SODIUM CHLORIDE 0.9% INJ 100 ML IV SCH ×4 (05:00→23:32)
[2016-11-08] MEDS: metroNIDAZOLE 500 MG INJ 100 ML IV SCH ×3 (05:01→21:26)
[2016-11-08 08:02] VITALS: BP 107/53; PULSE 78; RESP 16; TEMP 98.1; O2SAT 98
[2016-11-08 08:12] LABS: AUTOMATED NEUTROPHIL # 12.1 TH/MM3 (1.8-7.7); BASOPHIL # 0.1 TH/MM3 (0-0.2); BASOPHIL % 0.4 % (0.0-2.0); EOSINOPHIL # 0.2 TH/MM3 (0-0.4); EOSINOPHIL % 1.2 % (0.0-4.0); HEMATOCRIT 32.2 % (35.0-46.0); HEMO FLAGS DIFF FINAL; LYMPH % 8.4 % (9.0-44.0); LYMPHOCYTE # 1.2 TH/MM3 (1.0-4.8); MEAN CELL VOLUME 90.8 FL (80.0-100.0); MEAN CORPUSCULAR HGB CONC 34.2 % (32.0-36.0); MONO % 4.1 % (0.0-8.0); NEUT % 85.9 % (16.0-70.0); PLATELET COUNT 263 TH/MM3 (150-450); RED BLOOD COUNT 3.54 MIL/MM3 (4.00-5.30); RED CELL DISTRIBUTION WIDTH 13.5 % (11.6-17.2)
--- NOTE | 2016-11-08 08:36 | HHI.PR ---
SOFTWARE QUALITY ASSURANCE ENGINEER Note Note S: Ms. Pereyra was afebrile with stable vital signs overnight. Patient reports that her pain is increased today; she states that yesterday it was 37/10 but currently is more severe. Patient reports mild vaginal bleeding which she states is less than it was previously. Patient reports poor appetite and nausea , stating that she generally feels sick. Patient states she's been able to ambulate to bathroom; no symptoms reported when doing so O: GENERAL: Patient appears comfortable, in no acute distress. SKIN: Warm and dry, no rashes appreciated EYES: No scleral icterus, injection, or drainage. EOM grossly intact CARDIOVASCULAR: Regular rate and rhythm without murmurs. Normal peripheral perfusion in lower extremities. RESPIRATORY: Normal respiratory rate. Lungs clear to auscultation bilaterally. Abdominal: Seemingly unchanged from yesterday's exam: soft, nondistended. minimal/no tenderness; no guarding. Bowel sounds normal. MUSCULOSKELETAL: No lower extremity swelling. No appreciated calf asymmetry. NEURO/PSYCH: Awake, alert, and oriented. Cranial nerves grossly normal. Grossly normal motor and sensory function. Vaginal exam: not performed today A/P: Sepsis/TOA Impression: Afebrile w/ stable vitals and abd exam. Leukocytosis downtrending: WBC 14 (11/08) <- 19.1 (/) <- 21.9 (C4/5). CT A/P (11/05)adnexal and low pelvis bilateral cystic areas up to 7.3 cm -Continue IV antibiotics per primary team -Cefoxitin 2 g IV q6hrs -Doxycycline 100 mg BID -Metronidazole 500 mg IV q8hrs -Based on discussion w/ IR (11/07) regarding patient not deemed a drain candidate and that surgical intervention required, Dr. Jordan discussed with AUTO REPAIR SHOP MANAGER surgeon 11/07 : Will continue IV antibiotics this weekend and consider surgical intervention at that time -Discussed with Interventional Radiology 11/07 for possible drain placement: Per IR, cystic areas not deemed appropriate for drainage and that surgical intervention is required Management of other medical problems including substance abuse and pain control per primary team Discussed with Thad Contreras MD R2 Nov 08, 2016 08:36
[2016-11-08] MEDS: METHADONE HCL 10 MG TAB PO SCH (08:40)
[2016-11-08] MEDS: FERROUS SULFATE 325 MG (65 MG ELEMENTAL IRON) TAB PO SCH (08:40)
[2016-11-08] MEDS: DOXYCYCLINE HYCLATE 100 MG CAP PO SCH ×2 (08:40→21:25)
[2016-11-08] MEDS: DOCUSATE SODIUM 100 MG CAP PO SCH ×2 (08:40→21:25)
[2016-11-08 12:02] VITALS: BP 110/59; PULSE 73; RESP 16; TEMP 98; O2SAT 98
[2016-11-08 16:02] VITALS: BP 116/58; PULSE 64; RESP 16; TEMP 98; O2SAT 92
[2016-11-08] MEDS ORDERED: HYDROmorphone HCL PF 1 MG/ML VIAL IV PUSH ONE (16:45)
--- NOTE | 2016-11-08 16:58 | HHI.PR ---
Subjective Remarks Pain is controlled with pain treatments, but she is aware that without pain medicines the pain remains. She is considering surgery and will discuss her situation with her mother. No nausea. Objective Vital Signs Date Time Temp Pulse Resp B/P Pulse Ox O2 Delivery O2 Flow Rate FiO2 11/08/16 12:02 98.0 73 16 110/59 98 11/08/16 08:56 Room Air 11/08/16 08:02 98.1 78 16 107/53 98 11/08/16 06:47 18 11/08/16 04:00 97.9 71 20 108/64 99 11/08/16 00:03 98.5 84 20 102/58 98 11/07/16 20:05 Room Air 11/07/16 20:00 97.7 80 20 105/58 99 I/O 11/07/16 11/07/16 11/07/16 11/08/16 11/08/16 11/08/16 07:00 15:00 23:00 07:00 15:00 23:00 Intake Total 120 ml 860 ml 360 ml 360 ml Balance 120 ml 860 ml 360 ml 360 ml Intake Oral 120 ml 360 ml 360 ml 360 ml IV Total 500 ml # Voids 7 2 10 5 # Bowel Movements 0 1 0 0 Result Diagram: 11/08/16 0608 11/07/16 0539 Imaging Last Impressions Abdomen/Pelvis CT 11/05/16 1002 Signed Impressions: Service Date/Time: Saturday, November 05, 2016 10:37 - CONCLUSION: 1. Abnormal examination demonstrating large cystic structures arising from the adnexa and filling the low pelvis bilaterally. There are cystic areas evident measuring up to 7.3 cm in size. This is very difficult to visualize due to the lack of intravenous and oral contrast. Differential considerations would include hydrosalpinx and PID/TOA, bilateral cystic adnexal masses. Post contrast imaging may be of benefit for further assessment. Manuel Turk MD Objective Remarks GENERAL: NAD, AOx3 SKIN: Warm and dry. HEAD: Atraumatic. Normocephalic. EYES: Pupils equal and round. No scleral icterus. No injection or drainage. ENT: No nasal bleeding or discharge. Mucous membranes pink and moist. NECK: Trachea midline. No JVD. CARDIOVASCULAR: Regular rate and rhythm. RESPIRATORY: No accessory muscle use. Clear to auscultation. Breath sounds equal bilaterally. GASTROINTESTINAL: Abdomen soft, tender with palpation, nondistended. Hepatic and splenic margins not palpable. MUSCULOSKELETAL: Extremities without clubbing, cyanosis, or edema. No obvious deformities. NEUROLOGICAL: Awake and alert. No obvious cranial nerve deficits. Motor grossly within normal limits. Five out of 5 muscle strength in the arms and legs. Normal speech. PSYCHIATRIC: Appropriate mood and affect; insight and judgment normal. Medications and IVs Current Medications Ondansetron HCl 4 mg 4 mg ONCE ONCE IVP Last administered on 11/05/16 09:12; Start 11/05/16 at 09:15; Stop 11/05/16 at 09:16; Status DC Sodium Chloride (NS 1000 ml Inj) 1,000 ml @ 125 mls/hr Q8H IV Last administered on 11/05/16 09:12; Start 11/05/16 at 09:01; Stop 11/05/16 at 17:00; Status DC Sodium Chloride (NS Flush) 2 ml UNSCH PRN IV FLUSH FLUSH AFTER USING IV ACCESS ; Start 11/05/16 at 09:15 Hydromorphone HCl 2 mg 2 mg ONCE ONCE IVS Last administered on 11/05/16 09:12 ; Start 11/05/16 at 09:15; Stop 11/05/16 at 09:16; Status DC Doxycycline Hyclate 100 mg/ Sodium Chloride 100 ml @ 100 mls/hr ONCE ONCE IV Last administered on 11/05/16 11:30; Start 11/05/16 at 11:30; Stop 11/05/16 at 12: 29; Status DC Cefoxitin Sodium 2 gm/Sodium Chloride 100 ml @ 200 mls/hr ONCE ONCE IV Last administered on 11/05/16 11:30; Start 11/05/16 at 11:30; Stop 11/05/16 at 11:59; Status DC Cefoxitin Sodium/ Sodium Chloride (Mefoxin Inj/NS Inj) 100 ml @ 200 mls/hr Q6H IV Last administered on 11/08/16 11:26; Start 11/05/16 at 18:00 Doxycycline Hyclate (Vibramycin) 100 mg BID PO Last administered on 11/08/16 08 :40; Start 11/05/16 at 21:00 Oxycodone/ Acetaminophen (Percocet 5-325 Mg) 1 tab Q4H PRN PO PAIN SCALE 4 TO 10; Start 11/05/16 at 16:45; Status Cancel Ferrous Sulfate (Ferrous Sulfate) 325 mg BID PO ; Start 11/05/16 at 21:00; Stop 11/05/16 at 21:00; Status DC Tramadol/ Acetaminophen (Ultracet 37.5-325 Mg) 1 tab Q4H PRN PO PAIN SCALE 4 TO 10 Last administered on 11/08/16 15:40; Start 11/05/16 at 16:45 Methadone HCl (Dolophine) 5 mg DAILY PO Last administered on 11/08/16 08:40; Start 11/06/16 at 09:00 Ferrous Sulfate 325 mg 325 mg DAILY PO Last administered on 11/08/16 08:40; Start 11/06/16 at 09:00 Potassium Chloride/Sodium Chloride (NS + KCl 20 Meq Inj) 1,000 ml @ 42 mls/hr [id number] IV Last administered on 11/07/16 20:09; Start 11/05/16 at 17:00 Miscellaneous 1 ea 1 ea UNSCH PRN OTHER SEE LABEL COMMENTS; Start 11/05/16 at 17 :00 Metronidazole 100 ml @ 100 mls/hr Q8H IV Last administered on 11/08/16 05:01; Start 11/05/16 at 21:00 Metronidazole (Flagyl 500 Mg Inj) 100 ml @ 100 mls/hr ONCE ONCE IV ; Start 11/05/16 at 20:30; Stop 11/05/16 at 20:30; Status DC Docusate Sodium (Colace) 100 mg BID PO Last administered on 11/08/16 08:40; Start 11/07/16 at 13:00 Ondansetron HCl (Zofran Inj) 4 mg Q6HR PRN IV PUSH NAUSEA OR VOMITING Last administered on 11/08/16 15:40; Start 11/07/16 at 14:45 Polyethylene Glycol (Miralax) 17 gm DAILY PO ; Start 11/08/16 at 16:45 Hydromorphone HCl (Dilaudid Pf Inj) 1 mg ONCE ONCE IV PUSH ; Start 11/08/16 at 16:45; Stop 11/08/16 at 16:46; Status DC A/P Problem List: (1) Acute pelvic inflammatory disease (PID) ICD Code: N73.0 (2) Pelvic abscess in female ICD Code: N73.9 Assessment and Plan A/P Acute PID Pelvic Abscess No change to antibiotics Planning for surgery PRN pain treatments continued Situation discussed with patient and patient's mother Follow CBC Follow for fevers Monitor BPs and heart rate Manuel Meza MD Nov 08, 2016 16:58
[2016-11-08] MEDS: POLYETHYLENE GLYCOL 17 GM PKG PO SCH (18:02)
[2016-11-08 20:00] VITALS: BP 116/68; PULSE 78; RESP 20; TEMP 97.8; O2SAT 97
[2016-11-08] MEDS: NS + KCL 20 MEQ INJ 1,000 ML IV SCH (21:07)
[2016-11-09] VITALS: BP 108/68; PULSE 82; RESP 20; TEMP 97.6; O2SAT 98
[2016-11-09] MEDS: traMADol/ACETAMINOPHEN 37.5/325 1 TAB PO PRN ×3 (02:10→11:55)
[2016-11-09] MEDS: ONDANSETRON HCL 4 MG/2 ML VIAL IV PUSH PRN ×2 (03:44→11:55)
[2016-11-09] MEDS: metroNIDAZOLE 500 MG INJ 100 ML IV SCH ×3 (03:56→20:13)
[2016-11-09 04:00] VITALS: BP 105/61; PULSE 74; RESP 20; TEMP 97.1; O2SAT 100
[2016-11-09] MEDS: ceFOXitin INJ 2 GM in SODIUM CHLORIDE 0.9% INJ 100 ML IV SCH ×4 (05:31→22:31)
[2016-11-09 07:35] LABS: AUTOMATED NEUTROPHIL # 10.6 TH/MM3 (1.8-7.7); BASOPHIL % 0.3 % (0.0-2.0); EOSINOPHIL # 0.1 TH/MM3 (0-0.4); HEMATOCRIT 31.6 % (35.0-46.0); HEMO FLAGS DIFF FINAL; LYMPH % 10.9 % (9.0-44.0); LYMPHOCYTE # 1.4 TH/MM3 (1.0-4.8); MEAN CELL VOLUME 89.8 FL (80.0-100.0); MEAN CORPUSCULAR HEMOGLOBIN 31.5 PG (27.0-34.0); MEAN CORPUSCULAR HGB CONC 35.1 % (32.0-36.0); MONO % 3.6 % (0.0-8.0); NEUT % 84.2 % (16.0-70.0); PLATELET COUNT 318 TH/MM3 (150-450); RED BLOOD COUNT 3.52 MIL/MM3 (4.00-5.30); RED CELL DISTRIBUTION WIDTH 13.5 % (11.6-17.2); WHITE BLOOD COUNT 12.6 TH/MM3 (4.0-11.0)
[2016-11-09 07:53] LABS: BICARBONATE 26.7 MEQ/L (21.0-32.0); POTASSIUM 4.1 MEQ/L (3.5-5.1)
[2016-11-09 08:00] VITALS: BP 118/68; PULSE 71; RESP 16; TEMP 98.4; O2SAT 96
[2016-11-09] MEDS: POLYETHYLENE GLYCOL 17 GM PKG PO SCH (08:06)
[2016-11-09] MEDS: DOCUSATE SODIUM 100 MG CAP PO SCH ×2 (08:06→20:14)
[2016-11-09] MEDS: DOXYCYCLINE HYCLATE 100 MG CAP PO SCH ×2 (08:06→20:13)
[2016-11-09] MEDS: FERROUS SULFATE 325 MG (65 MG ELEMENTAL IRON) TAB PO SCH (08:07)
[2016-11-09] MEDS: METHADONE HCL 10 MG TAB PO SCH (08:07)
--- NOTE | 2016-11-09 10:20 | PD.CONS ---
History & Physical H&P HD #4 Pt admitted with large TOA, treated with IV antibiotics. Currently on methaone, reports nausea. Vitals/Results Intake & Output 11/08/16 11/08/16 11/09/16 15:00 23:00 07:00 Intake Total 480 ml 5697 ml 838 ml Balance 480 ml 5697 ml 838 ml Intake Oral 480 ml 640 ml 480 ml IV Total 5057 ml 358 ml # Voids 5 2 2 # Bowel Movements 1 Vital Signs Vital Signs Date Time Temp Pulse Resp B/P Pulse Ox O2 Delivery O2 Flow Rate FiO2 11/09/16 08:19 Room Air 11/09/16 08:00 98.4 71 16 118/68 96 11/09/16 04:00 97.1 74 20 105/61 100 11/09/16 00:00 97.6 82 20 108/68 98 11/08/16 20:55 Room Air 11/08/16 20:00 97.8 78 20 116/68 97 11/08/16 16:02 98.0 64 16 116/58 92 11/08/16 12:02 98.0 73 16 110/59 98 CBC/BMP: 11/09/16 0620 11/09/16 0620 Lab Results Laboratory Tests Test 11/09/16 06:20 White Blood Count 12.6 TH/MM3 Red Blood Count 3.52 MIL/MM3 Hemoglobin 11.1 GM/DL Hematocrit 31.6 % Mean Corpuscular Volume 89.8 FL Mean Corpuscular Hemoglobin 31.5 PG Mean Corpuscular Hemoglobin 35.1 % Concent Red Cell Distribution Width 13.5 % Platelet Count 318 TH/MM3 Mean Platelet Volume 6.5 FL Neutrophils (%) (Auto) 84.2 % Lymphocytes (%) (Auto) 10.9 % Monocytes (%) (Auto) 3.6 % Eosinophils (%) (Auto) 1.0 % Basophils (%) (Auto) 0.3 % Neutrophils # (Auto) 10.6 TH/MM3 Lymphocytes # (Auto) 1.4 TH/MM3 Monocytes # (Auto) 0.5 TH/MM3 Eosinophils # (Auto) 0.1 TH/MM3 Basophils # (Auto) 0.0 TH/MM3 CBC Comment DIFF FINAL Differential Comment Sodium Level 139 MEQ/L Potassium Level 4.1 MEQ/L Chloride Level 105 MEQ/L Carbon Dioxide Level 26.7 MEQ/L Anion Gap 7 MEQ/L Blood Urea Nitrogen 5 MG/DL Creatinine 1.06 MG/DL Estimat Glomerular Filtration 57 ML/MIN Rate Random Glucose 84 MG/DL Calcium Level 8.2 MG/DL Assessment & Plan Remarks 41y/o admitted with large TOA. -likely surgical candidate. -continue IV antibiotics -pt on Dr. Briones's roster. Sera Watt MD Nov 09, 2016 10:20
[2016-11-09 12:00] VITALS: BP 118/69; PULSE 75; RESP 16; TEMP 98.3; O2SAT 99
--- NOTE | 2016-11-09 13:16 | HHI.PR ---
Subjective Remarks Pain remains. She gets nausea with Methadone. Case discussed with her mother, per patient's request. Further history of drug abuse (mostly crack cocaine) and risky sexual behavior. HIV testing is offered and patient wishes to have this testing. She reports that she has Hepatitis C. Objective Vital Signs Date Time Temp Pulse Resp B/P Pulse Ox O2 Delivery O2 Flow Rate FiO2 11/09/16 12:00 98.3 75 16 118/69 99 11/09/16 08:19 Room Air 11/09/16 08:00 98.4 71 16 118/68 96 11/09/16 04:00 97.1 74 20 105/61 100 11/09/16 00:00 97.6 82 20 108/68 98 11/08/16 20:55 Room Air 11/08/16 20:00 97.8 78 20 116/68 97 11/08/16 16:02 98.0 64 16 116/58 92 I/O 11/08/16 11/08/16 11/08/16 11/09/16 11/09/16 11/09/16 07:00 15:00 23:00 07:00 15:00 23:00 Intake Total 360 ml 480 ml 5697 ml 838 ml Balance 360 ml 480 ml 5697 ml 838 ml Intake Oral 360 ml 480 ml 640 ml 480 ml IV Total 5057 ml 358 ml # Voids 5 5 2 2 # Bowel Movements 0 1 Result Diagram: 11/09/1661911/09/16619 Objective Remarks GENERAL: NAD, AOx3 SKIN: Warm and dry. HEAD: Atraumatic. Normocephalic. EYES: Pupils equal and round. No scleral icterus. No injection or drainage. ENT: No nasal bleeding or discharge. Mucous membranes pink and moist. NECK: Trachea midline. No JVD. CARDIOVASCULAR: Regular rate and rhythm. RESPIRATORY: No accessory muscle use. Clear to auscultation. Breath sounds equal bilaterally. GASTROINTESTINAL: Abdomen soft, tender with palpation, nondistended. Hepatic and splenic margins not palpable. MUSCULOSKELETAL: Extremities without clubbing, cyanosis, or edema. No obvious deformities. NEUROLOGICAL: Awake and alert. No obvious cranial nerve deficits. Motor grossly within normal limits. Five out of 5 muscle strength in the arms and legs. Normal speech. PSYCHIATRIC: Appropriate mood and affect; insight and judgment normal. Medications and IVs Administered Medications Medications (Trade) Dose Ordered Sig/Julia Route PRN Reason Start Time Stop Time Status Last Admin Dose Admin Cefoxitin Sodium/ Sodium Chloride (Mefoxin Inj/NS Inj) 100 ml @ 200 mls/hr Q6H IV 11/05/16 18:00 11/09/16 11:54 Doxycycline Hyclate (Vibramycin) 100 mg BID PO 11/05/16 21:00 11/09/16 08:06 Tramadol/ Acetaminophen (Ultracet 37.5-325 Mg) 1 tab Q4H PRN PO PAIN SCALE 4 TO 10 11/05/16 16:45 11/09/16 11:55 Methadone HCl (Dolophine) 5 mg DAILY PO 11/06/16 09:00 11/09/16 08:07 Ferrous Sulfate 325 mg 325 mg DAILY PO 11/06/16 09:00 11/08/16 08:40 Potassium Chloride/Sodium Chloride 1,000 ml @ 42 mls/hr [id number] IV 11/05/16 17:00 11/08/16 21:07 Metronidazole (Flagyl 500 Mg Inj) 100 ml @ 100 mls/hr Q8H IV 11/05/16 21:00 11/09/16 12:00 Docusate Sodium (Colace) 100 mg BID PO 11/07/16 13:00 11/09/16 08:06 Ondansetron HCl (Zofran Inj) 4 mg Q6HR PRN IV PUSH NAUSEA OR VOMITING 11/07/16 14:45 11/09/16 11:55 Polyethylene Glycol (Miralax) 17 gm DAILY PO 11/08/16 16:45 11/09/16 08:06 A/P Problem List: (1) Acute pelvic inflammatory disease (PID) ICD Code: N73.0 (2) Pelvic abscess in female ICD Code: N73.9 Assessment and Plan A/P Acute PID Pelvic Abscess No change to antibiotics Planning for surgery PRN pain treatments continued Situation discussed with patient and patient's mother Follow CBC Follow for fevers Monitor BPs and heart rate Hepatitis C Follow clinically Standard precautions Risky Sexual Behavior Poly-substance Abuse HIV Screen Manuel Meza MD Nov 09, 2016 1:16 pm
[2016-11-09 16:00] VITALS: BP 118/68; PULSE 68; RESP 16; TEMP 98.3; O2SAT 99
[2016-11-09] MEDS: oxyCODONE/ACETAMINOPHEN 5 MG/325 MG TAB PO PRN ×2 (16:09→20:14)
[2016-11-09] MEDS: HYDROmorphone HCL PF 1 MG/ML VIAL IV PUSH PRN ×2 (18:14→22:31)
[2016-11-09 20:00] VITALS: BP 113/70; PULSE 75; RESP 18; TEMP 98; O2SAT 100
[2016-11-09] MEDS: NS + KCL 20 MEQ INJ 1,000 ML IV SCH (20:56)
[2016-11-10] VITALS: BP 101/71; PULSE 76; RESP 18; TEMP 98.1; O2SAT 97
[2016-11-10] MEDS: oxyCODONE/ACETAMINOPHEN 5 MG/325 MG TAB PO PRN ×6 (01:00→23:26)
[2016-11-10 04:00] VITALS: BP 127/58; PULSE 74; RESP 16; TEMP 97.9; O2SAT 98
[2016-11-10] MEDS: ONDANSETRON HCL 4 MG/2 ML VIAL IV PUSH PRN ×3 (04:03→18:39)
[2016-11-10] MEDS: HYDROmorphone HCL PF 1 MG/ML VIAL IV PUSH PRN ×5 (04:03→21:26)
[2016-11-10] MEDS: metroNIDAZOLE 500 MG INJ 100 ML IV SCH ×3 (04:03→19:31)
[2016-11-10] MEDS: ceFOXitin INJ 2 GM in SODIUM CHLORIDE 0.9% INJ 100 ML IV SCH ×4 (05:04→23:25)
[2016-11-10 07:28] LABS: HEMATOCRIT 32.9 % (35.0-46.0); MEAN CELL VOLUME 90.1 FL (80.0-100.0); MEAN CORPUSCULAR HEMOGLOBIN 31.1 PG (27.0-34.0); MEAN CORPUSCULAR HGB CONC 34.5 % (32.0-36.0); PLATELET COUNT 360 TH/MM3 (150-450); RED BLOOD COUNT 3.66 MIL/MM3 (4.00-5.30); RED CELL DISTRIBUTION WIDTH 13.8 % (11.6-17.2); REVIEW FLAG FINAL; WHITE BLOOD COUNT 11.2 TH/MM3 (4.0-11.0)
[2016-11-10 07:32] LABS: BICARBONATE 29.6 MEQ/L (21.0-32.0); POTASSIUM 4.3 MEQ/L (3.5-5.1)
[2016-11-10] MEDS: DOCUSATE SODIUM 100 MG CAP PO SCH ×2 (08:26→20:43)
[2016-11-10] MEDS: DOXYCYCLINE HYCLATE 100 MG CAP PO SCH ×2 (08:26→20:43)
[2016-11-10] MEDS: FERROUS SULFATE 325 MG (65 MG ELEMENTAL IRON) TAB PO SCH (08:26)
[2016-11-10 08:28] VITALS: BP 112/64; PULSE 72; RESP 18; TEMP 98.2; O2SAT 96
--- NOTE | 2016-11-10 08:28 | HHI.PR ---
[employer] Note Note S: Ms. Pereyra was afebrile with stable vital signs overnight. Patient reports that her pain is improved after she was changed from Methadone to Percocet/ Dilaudid yesterday. Patient reports continued vaginal bleeding; she states that it had briefly subsided for several days then increased again yesterday. No shortness of breath, nausea/vomiting, or other symptoms reported. O: Vital Signs Date Time Temp Pulse Resp B/P Pulse Ox O2 Delivery O2 Flow Rate FiO2 11/10/16 07:50 Room Air 11/10/16 04:00 97.9 74 16 127/58 98 GENERAL: Patient appears comfortable, in no acute distress. SKIN: Warm and dry, no rashes appreciated EYES: No scleral icterus, injection, or drainage. EOM grossly intact CARDIOVASCULAR: Regular rate and rhythm without murmurs. Normal peripheral perfusion in lower extremities. RESPIRATORY: Normal respiratory rate. Lungs clear to auscultation bilaterally. Abdominal: Seemingly unchanged from yesterday's exam: soft, nondistended. minimal tenderness; no guarding. Bowel sounds normal. MUSCULOSKELETAL: No lower extremity swelling. No appreciated calf asymmetry. NEURO/PSYCH: Awake, alert, and oriented. Cranial nerves grossly normal. Grossly normal motor and sensory function. Vaginal exam: not performed Laboratory Tests Test 11/10/16 06:00 White Blood Count 11.2 TH/MM3 (4.0-11.0) Red Blood Count 3.66 MIL/MM3 (4.00-5.30) Hemoglobin 11.4 GM/DL (11.6-15.3) Hematocrit 32.9 % (35.0-46.0) Mean Corpuscular Volume 90.1 FL (80.0-100.0) Mean Corpuscular Hemoglobin 31.1 PG (27.0-34.0) Mean Corpuscular Hemoglobin 34.5 % Concent (32.0-36.0) Red Cell Distribution Width 13.8 % (11.6-17.2) Platelet Count 360 TH/MM3 (150-450) Mean Platelet Volume 6.5 FL (7.0-11.0) Sodium Level 139 MEQ/L (136-145) Potassium Level 4.3 MEQ/L (3.5-5.1) Chloride Level 102 MEQ/L (98-107) Carbon Dioxide Level 29.6 MEQ/L (21.0-32.0) Anion Gap 7 MEQ/L (5-15) Blood Urea Nitrogen 6 MG/DL (7-18) Creatinine 1.24 MG/DL (0.50-1.00) Estimat Glomerular Filtration 48 ML/MIN (>89) Rate Random Glucose 105 MG/DL (74-106) Calcium Level 8.1 MG/DL (8.5-10.1) A/P: Sepsis/TOA Impression: Afebrile w/ stable vitals and abd exam. Leukocytosis downtrending: WBC 11.2 (11/10) <- 12.6 (11/09) <- 14 (11/08) <- 19.1 (11/07) <- 21.9 (11/05). CT A/P (11/05)adnexal and low pelvis bilateral cystic areas up to 7.3 cm -Continue IV antibiotics per primary team -Cefoxitin 2 g IV q6hrs -Doxycycline 100 mg BID -Metronidazole 500 mg IV q8hrs -Based on discussion w/ IR (11/07) regarding patient not deemed a drain candidate and that surgical intervention required, Dr. Jordan discussed with [facility] surgeon 11/07 : Will continue IV antibiotics this weekend and consider surgical intervention at that time. -Will plan for operative debridement/drainage Management of other medical problems including substance abuse and pain control per primary team Thad Warren MD R2 Nov 10, 2016 08:28
[2016-11-10] MEDS: POLYETHYLENE GLYCOL 17 GM PKG PO SCH (08:30)
--- NOTE | 2016-11-10 11:17 | HHI.PR ---
Subjective Remarks in no distress. afebrile. still with some lower abdominal pain. Objective Vitals Vital Signs Date Time Temp Pulse Resp B/P Pulse Ox O2 Delivery O2 Flow Rate FiO2 11/10/16 08:28 98.2 72 18 112/64 96 11/10/16 07:50 Room Air 11/10/16 04:00 97.9 74 16 127/58 98 11/10/16 00:00 98.1 76 18 101/71 97 11/09/16 21:50 Room Air 11/09/16 20:00 98.0 75 18 113/70 100 11/09/16 16:00 98.3 68 16 118/68 99 11/09/16 12:00 98.3 75 16 118/69 99 I/O 11/09/16 11/09/16 11/09/16 11/10/16 11/10/16 11/10/16 07:00 15:00 23:00 07:00 15:00 23:00 Intake Total 838 ml 720 ml 800 ml 570 ml Balance 838 ml 720 ml 800 ml 570 ml Intake Oral 480 ml 720 ml 480 ml 240 ml IV Total 358 ml 320 ml 330 ml # Voids 2 5 2 5 # Bowel Movements 0 0 0 Result Diagram: 11/10/16 0600 11/10/16 0600 Imaging Last Impressions Abdomen/Pelvis CT 11/05/16 1002 Signed Impressions: Service Date/Time: Saturday, November 05, 2016 10:37 - CONCLUSION: 1. Abnormal examination demonstrating large cystic structures arising from the adnexa and filling the low pelvis bilaterally. There are cystic areas evident measuring up to 7.3 cm in size. This is very difficult to visualize due to the lack of intravenous and oral contrast. Differential considerations would include hydrosalpinx and PID/TOA, bilateral cystic adnexal masses. Post contrast imaging may be of benefit for further assessment. Manuel Turk MD Objective Remarks GENERAL: This is a well-nourished, well-developed patient, in no apparent distress. CARDIOVASCULAR: Regular rate and regular rhythm without murmurs, gallops, or rubs. RESPIRATORY: Clear to auscultation. Breath sounds equal bilaterally. No wheezes , rales, or rhonchi. GASTROINTESTINAL: Abdomen soft, lower abdominal tenderness, nondistended. Normal, active bowel sounds MUSCULOSKELETAL: Extremities without clubbing, cyanosis, or edema. NEURO: Alert & Oriented x4 to person, place, time, situation. Moves all ext x4 Medications and IVs Current Medications Ondansetron HCl 4 mg 4 mg ONCE ONCE IVP Last administered on 11/05/16 09:12; Start 11/05/16 at 09:15; Stop 11/05/16 at 09:16; Status DC Sodium Chloride (NS 1000 ml Inj) 1,000 ml @ 125 mls/hr Q8H IV Last administered on 11/05/16 09:12; Start 11/05/16 at 09:01; Stop 11/05/16 at 17:00; Status DC Sodium Chloride (NS Flush) 2 ml UNSCH PRN IV FLUSH FLUSH AFTER USING IV ACCESS ; Start 11/05/16 at 09:15 Hydromorphone HCl 2 mg 2 mg ONCE ONCE IVS Last administered on 11/05/16 09:12 ; Start 11/05/16 at 09:15; Stop 11/05/16 at 09:16; Status DC Doxycycline Hyclate 100 mg/ Sodium Chloride 100 ml @ 100 mls/hr ONCE ONCE IV Last administered on 11/05/16 11:30; Start 11/05/16 at 11:30; Stop 11/05/16 at 12: 29; Status DC Cefoxitin Sodium 2 gm/Sodium Chloride 100 ml @ 200 mls/hr ONCE ONCE IV Last administered on 11/05/16 11:30; Start 11/05/16 at 11:30; Stop 11/05/16 at 11:59; Status DC Cefoxitin Sodium/ Sodium Chloride (Mefoxin Inj/NS Inj) 100 ml @ 200 mls/hr Q6H IV Last administered on 11/10/16 05:04; Start 11/05/16 at 18:00 Doxycycline Hyclate (Vibramycin) 100 mg BID PO Last administered on 11/10/16 08:26; Start 11/05/16 at 21:00 Oxycodone/ Acetaminophen (Percocet 5-325 Mg) 1 tab Q4H PRN PO PAIN SCALE 4 TO 10; Start 11/05/16 at 16:45; Status Cancel Ferrous Sulfate (Ferrous Sulfate) 325 mg BID PO ; Start 11/05/16 at 21:00; Stop 11/05/16 at 21:00; Status DC Tramadol/ Acetaminophen (Ultracet 37.5-325 Mg) 1 tab Q4H PRN PO PAIN SCALE 4 TO 10 Last administered on 11/09/16 11:55; Start 11/05/16 at 16:45; Stop 11/09/16 at 13:19; Status DC Methadone HCl (Dolophine) 5 mg DAILY PO Last administered on 11/09/16 08:07; Start 11/06/16 at 09:00; Stop 11/09/16 at 13:19; Status DC Ferrous Sulfate 325 mg 325 mg DAILY PO Last administered on 11/10/16 08:26; Start 11/06/16 at 09:00 Potassium Chloride/Sodium Chloride (NS + KCl 20 Meq Inj) 1,000 ml @ 42 mls/hr [id number] IV Last administered on 11/09/16 20:56; Start 11/05/16 at 17:00 Miscellaneous 1 ea 1 ea UNSCH PRN OTHER SEE LABEL COMMENTS; Start 11/05/16 at 17 :00 Metronidazole 100 ml @ 100 mls/hr Q8H IV Last administered on 11/10/16 04:03 ; Start 11/05/16 at 21:00 Metronidazole (Flagyl 500 Mg Inj) 100 ml @ 100 mls/hr ONCE ONCE IV ; Start 11/05/16 at 20:30; Stop 11/05/16 at 20:30; Status DC Docusate Sodium (Colace) 100 mg BID PO Last administered on 11/10/16 08:26; Start 11/07/16 at 13:00 Ondansetron HCl (Zofran Inj) 4 mg Q6HR PRN IV PUSH NAUSEA OR VOMITING Last administered on 11/10/16 04:03; Start 11/07/16 at 14:45 Polyethylene Glycol (Miralax) 17 gm DAILY PO Last administered on 11/09/16 08: 06; Start 11/08/16 at 16:45 Hydromorphone HCl (Dilaudid Pf Inj) 1 mg ONCE ONCE IV PUSH Last administered on 11/08/16 17:14; Start 11/08/16 at 16:45; Stop 11/08/16 at 16:46; Status DC Oxycodone/ Acetaminophen (Percocet 5-325 Mg) 1 tab Q4H PRN PO PAIN3-10 Last administered on 11/10/16 05:04; Start 11/09/16 at 13:30 Hydromorphone HCl (Dilaudid Pf Inj) 0.5 mg Q4H PRN IV PUSH BREAKTHROUGH PAIN Last administered on 11/10/16 08:27; Start 11/09/16 at 13:30 A/P Assessment and Plan A/P Acute PID Pelvic Abscess continue Abx Planning for surgery PRN pain treatments continued [employer] following. Hepatitis C Follow clinically Standard precautions Risky Sexual Behavior Poly-substance Abuse HIV Screen pending. Michaela Lee MD Nov 10, 2016 11:16
[2016-11-10 12:31] VITALS: BP 111/67; PULSE 72; RESP 17; TEMP 98.1; O2SAT 98
[2016-11-10 16:03] VITALS: BP 99/59; PULSE 70; RESP 18; TEMP 98.2; O2SAT 100
[2016-11-10] MEDS ORDERED: PEG (High)/E-LYTE SOLN 4000 ML BTL PO ONE (17:00)
[2016-11-10 20:00] VITALS: BP 135/59; PULSE 77; RESP 18; TEMP 98.1; O2SAT 100
[2016-11-10] MEDS ORDERED: ONDANSETRON HCL 4 MG/2 ML VIAL IV PUSH ONE (20:30)
--- NOTE | 2016-11-10 21:45 | PD.CONS ---
HPI Service Urology Consult Requested By Reason for Consult Ureteral stents Primary Care Physician No Primary Care Physician Diagnosis: History of Present Illness 41yo female with large pelvic mass undergoing resection tomorrow. Request was made for bilateral ureteral stent placement during the procedure to facilitate identification of bilateral ureters. Patient admitted with lower abdominal pain and found to have a Pelvic mass with identification of a large pelvic mass. She reports mild persistent pain to her lower abdomen that is dull and persistent for approx 2 weeks now. No N/V. Review of Systems ROS Limitations: Clinical Condition Constitutional: DENIES: Fever Endocrine: DENIES: Polyuria Eyes: DENIES: Blurred vision Ears, nose, mouth, throat: DENIES: Hearing loss Respiratory: DENIES: Apneas, Cough Cardiovascular: DENIES: Chest pain Gastrointestinal: COMPLAINS OF: Abdominal pain Genitourinary: DENIES: Urgency, Hematuria Musculoskeletal: DENIES: Joint pain Integumentary: DENIES: Rash Hematologic/lymphatic: DENIES: Bruising Neurologic: DENIES: Headache Psychiatric: DENIES: Anxiety Except as stated in HPI: all other systems reviewed are Neg Past Family Social History Past Medical History History of PID History of abnormal uterine bleeding. Was actually here months ago and was supposed to follow-up with [facility] as an outpatient for further evaluation. Patient failed to do so. Past Surgical History Left forearm surgery 22 years old Right knee anterior cruciate ligament arthroscopic surgery 10 years ago Reported Medications Reported Meds & Active Scripts Active Ferrous Sulfate 325 Mg Tab 325 Mg PO BID 30 Days Allergies: Coded Allergies: Contrast Media (Verified Allergy, Severe, Anaphylaxis- THROAT CLOSES, HIVES, 11/05/16) Codeine (Verified Adverse Reaction, Severe, Nausea/Vomiting, 11/05/16) Active Ordered Medications Current Medications Medications (Trade) Dose Ordered Sig/Julia Route Start Time Stop Time Status Last Admin (Mefoxin Inj/NS Inj) 100 ml @ 200 mls/hr Q6H IV 11/05/16 18:00 11/11/16 18:17 (Vibramycin) 100 mg BID PO 11/05/16 21:00 11/11/16 09:21 (Ferrous Sulfate) 325 mg DAILY PO 11/06/16 09:00 11/11/16 09:20 (Pill Splitter) 1 ea UNSCH PRN OTHER 11/05/16 17:00 (Colace) 100 mg BID PO 11/07/16 13:00 11/11/16 09:20 Polyethylene Glycol 17 gm 17 gm DAILY PO 11/08/16 16:45 11/11/16 09:20 (Lr 1000 ml Inj) 1,000 ml @ 125 mls/hr Q8H IV 11/11/16 18:00 (NS Flush) 2 ml UNSCH PRN IV FLUSH 11/11/16 17:00 (NS Flush) 2 ml BID IV FLUSH 11/11/16 21:00 11/11/16 20:04 (Motrin) 600 mg Q6H PRN PO 11/11/16 17:00 (Percocet 5-325 Mg) 1 tab Q4H PRN PO 11/11/16 17:00 (Percocet 10-325 Mg) 1 tab Q4H PRN PO 11/11/16 17:00 (Dilaudid Pf Inj) 2 mg Q4H PRN IV 11/11/16 17:00 11/11/16 20:03 (Zofran Odt) 4 mg Q6H PRN SL 11/11/16 17:00 (Zofran Inj) 4 mg Q6H PRN IV PUSH 11/11/16 17:00 (Benadryl Inj) 25 mg Q6H PRN IV 11/11/16 17:00 (Benadryl) 25 mg Q6H PRN PO 11/11/16 17:00 Docusate Sodium 100 mg 100 mg Q12H PRN PO 11/11/16 17:00 (Flagyl 500 Mg Inj) 100 ml @ 100 mls/hr Q12H IV 11/11/16 23:00 Miscellaneous Information ALL NURSING DEPARTME... UNSCH PRN .XX 11/11/16 18:15 11/12/16 18:14 (Toradol Inj) 30 mg Q8H PRN IV PUSH 11/12/16 02:00 11/17/16 01:59 Family History Positive family history of colon cancer mother Grandmother with lung cancer with breast cancer Grandfather with lung cancer with metastases Social History Smokes a pack of cigarettes a day quit yesterday Admits to crack use last use yesterday Used to drink 6 pack per 2 weeks ago Physical Exam Vital Signs Date Time Temp Pulse Resp B/P Pulse Ox O2 Delivery O2 Flow Rate FiO2 11/10/16 16:03 98.2 70 18 99/59 100 11/10/16 12:31 98.1 72 17 111/67 98 11/10/16 08:28 98.2 72 18 112/64 96 11/10/16 07:50 Room Air 11/10/16 04:00 97.9 74 16 127/58 98 11/10/16 00:00 98.1 76 18 101/71 97 11/09/16 21:50 Room Air Physical Exam GENERAL: This is a well-nourished, well-developed patient, in no apparent distress. SKIN: No rashes, ecchymoses or lesions. Cool and dry. HEAD: Atraumatic. Normocephalic. EYES: Extraocular motions intact. No scleral icterus. No injection or drainage. ENT: Nose without bleeding, purulent drainage. Airway patent. NECK: Trachea midline. No JVD or lymphadenopathy. CARDIOVASCULAR: Normal pulses RESPIRATORY: Nonlabored, equal chest rise GASTROINTESTINAL: Abdomen soft, non-tender, nondistended. MUSCULOSKELETAL: Extremities without clubbing, cyanosis, or edema. NEUROLOGICAL: Awake and alert. Motor and sensory grossly within normal limits. Normal speech. Lab results reviewed: Yes Laboratory Tests Test 11/10/16 11/10/16 06:00 13:42 White Blood Count 11.2 Red Blood Count 3.66 Hemoglobin 11.4 Hematocrit 32.9 Mean Corpuscular Volume 90.1 Mean Corpuscular Hemoglobin 31.1 Mean Corpuscular Hemoglobin 34.5 Concent Red Cell Distribution Width 13.8 Platelet Count 360 Mean Platelet Volume 6.5 Sodium Level 139 Potassium Level 4.3 Chloride Level 102 Carbon Dioxide Level 29.6 Anion Gap 7 Blood Urea Nitrogen 6 Creatinine 1.24 Estimat Glomerular Filtration 48 Rate Random Glucose 105 Calcium Level 8.1 Blood Type O POSITIVE Antibody Screen NEGATIVE Crossmatch Leukocyte-Reduced Red Blood Cells Blood Bank Comment Result Diagram: 11/10/16 0600 11/10/16 0600 Personally reviewed images: Yes Imaging Last Impressions Abdomen/Pelvis CT 11/05/16 1002 Signed Impressions: Service Date/Time: Saturday, November 05, 2016 10:37 - CONCLUSION: 1. Abnormal examination demonstrating large cystic structures arising from the adnexa and filling the low pelvis bilaterally. There are cystic areas evident measuring up to 7.3 cm in size. This is very difficult to visualize due to the lack of intravenous and oral contrast. Differential considerations would include hydrosalpinx and PID/TOA, bilateral cystic adnexal masses. Post contrast imaging may be of benefit for further assessment. Manuel Turk MD Assessment and Plan Problem List: (1) Pelvic abscess in female ICD Code: N73.9 Status: Acute Assessment and Plan -Patient with large pelvic mass, plans for resection -Bilateral ureteral stent placement to be completed at the time of surgery -Discussed with patient who understands and agrees -Consent obtained. All questions were answered Per Begum MD Nov 10, 2016 21:45
[2016-11-11] VITALS: BP 105/73; PULSE 71; RESP 16; TEMP 98; O2SAT 97
[2016-11-11] MEDS: HYDROmorphone HCL PF 1 MG/ML VIAL IV PUSH PRN ×3 (01:30→11:29)
[2016-11-11] MEDS ORDERED: CHLORHEXIDINE GLUCONATE 2 % 1 PACK (2 CLOTHS) TOPICAL PRN (03:00)
[2016-11-11] MEDS ORDERED: SODIUM CHLORID 0.9% 500 ML IV PRN (03:00)
[2016-11-11 04:00] VITALS: BP 116/74; PULSE 68; RESP 14; TEMP 98.2; O2SAT 98
[2016-11-11] MEDS: NS + KCL 20 MEQ INJ 1,000 ML IV SCH (05:02)
[2016-11-11] MEDS: metroNIDAZOLE 500 MG INJ 100 ML IV SCH ×3 (05:02→22:04)
[2016-11-11] MEDS: oxyCODONE/ACETAMINOPHEN 5 MG/325 MG TAB PO PRN ×2 (05:39→09:23)
[2016-11-11] MEDS: ceFOXitin INJ 2 GM in SODIUM CHLORIDE 0.9% INJ 100 ML IV SCH ×4 (05:40→23:21)
[2016-11-11 08:33] VITALS: BP 113/61; PULSE 67; RESP 16; TEMP 98.2; O2SAT 96
--- NOTE | 2016-11-11 08:51 | HHI.PR ---
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 Pereyra was afebrile with stable vital signs overnight. Patient reports that her pain is persistent despite Percocet/Dilaudid. Patient reports continued vaginal bleeding; she states that it is light. Patient reports vomiting when attempting to drink colon prep; she states that she no longer feels nauseous this morning. Patient reports hunger as she is NPO. No shortness of breath, chest pain, dysuria, or other symptoms reported. O: Vital Signs Date Time Temp Pulse Resp B/P Pulse Ox O2 Delivery O2 Flow Rate FiO2 11/11/16 08:33 98.2 67 16 113/61 96 11/10/16 20:00 Room Air GENERAL: Patient appears comfortable, in no acute distress. SKIN: Warm and dry, no rashes appreciated EYES: No scleral icterus, injection, or drainage. EOM grossly intact CARDIOVASCULAR: Regular rate and rhythm without murmurs. Normal peripheral perfusion in lower extremities. RESPIRATORY: Normal respiratory rate. Lungs clear to auscultation bilaterally. Abdominal: Soft, nondistended, seemingly more painful today than on prior exams. No guarding. Bowel sounds normal. MUSCULOSKELETAL: No lower extremity swelling. No appreciated calf asymmetry. NEURO/PSYCH: Awake, alert, and oriented. Cranial nerves grossly normal. Grossly normal motor and sensory function. Vaginal exam: not performed Laboratory Tests Test 11/10/16 06:00 White Blood Count 11.2 TH/MM3 (4.0-11.0) Red Blood Count 3.66 MIL/MM3 (4.00-5.30) Hemoglobin 11.4 GM/DL (11.6-15.3) Hematocrit 32.9 % (35.0-46.0) Mean Corpuscular Volume 90.1 FL (80.0-100.0) Mean Corpuscular Hemoglobin 31.1 PG (27.0-34.0) Mean Corpuscular Hemoglobin 34.5 % Concent (32.0-36.0) Red Cell Distribution Width 13.8 % (11.6-17.2) Platelet Count 360 TH/MM3 (150-450) Mean Platelet Volume 6.5 FL (7.0-11.0) Sodium Level 139 MEQ/L (136-145) Potassium Level 4.3 MEQ/L (3.5-5.1) Chloride Level 102 MEQ/L (98-107) Carbon Dioxide Level 29.6 MEQ/L (21.0-32.0) Anion Gap 7 MEQ/L (5-15) Blood Urea Nitrogen 6 MG/DL (7-18) Creatinine 1.24 MG/DL (0.50-1.00) Estimat Glomerular Filtration 48 ML/MIN (>89) Rate Random Glucose 105 MG/DL (74-106) Calcium Level 8.1 MG/DL (8.5-10.1) A/P: Sepsis/TOA Impression: Afebrile w/ stable vitals and abd exam. Leukocytosis downtrending: WBC 11.2 (11/10) <- 12.6 (11/09) <- 14 (11/08) <- 19.1 (11/07) <- 21.9 (11/05). CT A/P (11/05)adnexal and low pelvis bilateral cystic areas up to 7.3 cm -Continue IV antibiotics per primary team -Cefoxitin 2 g IV q6hrs -Doxycycline 100 mg BID -Metronidazole 500 mg IV q8hrs -Based on discussion w/ IR (11/07) regarding patient not deemed a drain candidate and that surgical intervention required, Dr. Jordan discussed with [facility] surgeon 11/07 : Will continue IV antibiotics this weekend and consider surgical intervention at that time. -Will plan for operative debridement/drainage today -Urology also consulted; will place bilateral ureteral stents at that time Management of other medical problems including substance abuse and pain control per primary team (Thad Warren MD R2) Note Patient to be seen by oncoming OB hospitalist, Dr. Barcenas. (Svetlana Vergara MD) Thad Wraren MD R2 Nov 11, 2016 08:51 Svetlana Vergara MD Nov 11, 2016 10:50
[2016-11-11] MEDS: FERROUS SULFATE 325 MG (65 MG ELEMENTAL IRON) TAB PO SCH (09:20)
[2016-11-11] MEDS: POLYETHYLENE GLYCOL 17 GM PKG PO SCH (09:20)
[2016-11-11] MEDS: DOCUSATE SODIUM 100 MG CAP PO SCH ×2 (09:20→21:33)
[2016-11-11] MEDS: DOXYCYCLINE HYCLATE 100 MG CAP PO SCH ×2 (09:21→21:33)
--- NOTE | 2016-11-11 10:19 | HHI.PR ---
Subjective Remarks in no acute distress. still with lower abdominal / pelvic pain with no significant change. afebrile. awaiting surgery. Objective Vitals Vital Signs Date Time Temp Pulse Resp B/P Pulse Ox O2 Delivery O2 Flow Rate FiO2 11/11/16 09:48 Room Air 11/11/16 08:33 98.2 67 16 113/61 96 11/11/16 04:00 98.2 68 14 116/74 98 11/11/16 00:00 98.0 71 16 105/73 97 11/10/16 20:00 Room Air 11/10/16 20:00 98.1 77 18 135/59 100 11/10/16 16:03 98.2 70 18 99/59 100 11/10/16 12:31 98.1 72 17 111/67 98 I/O 11/10/16 11/10/16 11/10/16 11/11/16 11/11/16 11/11/16 07:00 15:00 23:00 07:00 15:00 23:00 Intake Total 570 ml 840 ml 1583 ml 0 ml Balance 570 ml 840 ml 1583 ml 0 ml Intake Oral 240 ml 360 ml 720 ml 0 ml IV Total 330 ml 480 ml 863 ml # Voids 5 5 2 3 # Bowel Movements 0 0 0 0 Result Diagram: 11/10/16 0600 11/10/16 0600 Imaging Last Impressions Abdomen/Pelvis CT 11/05/16 1002 Signed Impressions: Service Date/Time: Saturday, November 05, 2016 10:37 - CONCLUSION: 1. Abnormal examination demonstrating large cystic structures arising from the adnexa and filling the low pelvis bilaterally. There are cystic areas evident measuring up to 7.3 cm in size. This is very difficult to visualize due to the lack of intravenous and oral contrast. Differential considerations would include hydrosalpinx and PID/TOA, bilateral cystic adnexal masses. Post contrast imaging may be of benefit for further assessment. Manuel Turk MD Objective Remarks GENERAL: This is a well-nourished, well-developed patient, in no apparent distress. CARDIOVASCULAR: Regular rate and regular rhythm without murmurs, gallops, or rubs. RESPIRATORY: Clear to auscultation. Breath sounds equal bilaterally. No wheezes , rales, or rhonchi. GASTROINTESTINAL: Abdomen soft, lower abdominal tenderness, nondistended. Normal, active bowel sounds MUSCULOSKELETAL: Extremities without clubbing, cyanosis, or edema. NEURO: Alert & Oriented x4 to person, place, time, situation. Moves all ext x4 Procedures none Medications and IVs Current Medications Ondansetron HCl 4 mg 4 mg ONCE ONCE IVP Last administered on 11/05/16 09:12; Start 11/05/16 at 09:15; Stop 11/05/16 at 09:16; Status DC Sodium Chloride (NS 1000 ml Inj) 1,000 ml @ 125 mls/hr Q8H IV Last administered on 11/05/16 09:12; Start 11/05/16 at 09:01; Stop 11/05/16 at 17:00; Status DC Sodium Chloride (NS Flush) 2 ml UNSCH PRN IV FLUSH FLUSH AFTER USING IV ACCESS Last administered on 11/10/16 21:26; Start 11/05/16 at 09:15 Hydromorphone HCl 2 mg 2 mg ONCE ONCE IVS Last administered on 11/05/16 09:12 ; Start 11/05/16 at 09:15; Stop 11/05/16 at 09:16; Status DC Doxycycline Hyclate 100 mg/ Sodium Chloride 100 ml @ 100 mls/hr ONCE ONCE IV Last administered on 11/05/16 11:30; Start 11/05/16 at 11:30; Stop 11/05/16 at 12: 29; Status DC Cefoxitin Sodium 2 gm/Sodium Chloride 100 ml @ 200 mls/hr ONCE ONCE IV Last administered on 11/05/16 11:30; Start 11/05/16 at 11:30; Stop 11/05/16 at 11:59; Status DC Cefoxitin Sodium/ Sodium Chloride (Mefoxin Inj/NS Inj) 100 ml @ 200 mls/hr Q6H IV Last administered on 11/11/16 05:40; Start 11/05/16 at 18:00 Doxycycline Hyclate (Vibramycin) 100 mg BID PO Last administered on 11/11/16 09:21; Start 11/05/16 at 21:00 Oxycodone/ Acetaminophen (Percocet 5-325 Mg) 1 tab Q4H PRN PO PAIN SCALE 4 TO 10; Start 11/05/16 at 16:45; Status Cancel Ferrous Sulfate (Ferrous Sulfate) 325 mg BID PO ; Start 11/05/16 at 21:00; Stop 11/05/16 at 21:00; Status DC Tramadol/ Acetaminophen (Ultracet 37.5-325 Mg) 1 tab Q4H PRN PO PAIN SCALE 4 TO 10 Last administered on 11/09/16 11:55; Start 11/05/16 at 16:45; Stop 11/09/16 at 13:19; Status DC Methadone HCl (Dolophine) 5 mg DAILY PO Last administered on 11/09/16 08:07; Start 11/06/16 at 09:00; Stop 11/09/16 at 13:19; Status DC Ferrous Sulfate 325 mg 325 mg DAILY PO Last administered on 11/11/16 09:20; Start 11/06/16 at 09:00 Potassium Chloride/Sodium Chloride (NS + KCl 20 Meq Inj) 1,000 ml @ 42 mls/hr [id number] IV Last administered on 11/11/16 05:02; Start 11/05/16 at 17:00 Miscellaneous 1 ea 1 ea UNSCH PRN OTHER SEE LABEL COMMENTS; Start 11/05/16 at 17 :00 Metronidazole 100 ml @ 100 mls/hr Q8H IV Last administered on 11/11/16 05:02 ; Start 11/05/16 at 21:00 Metronidazole (Flagyl 500 Mg Inj) 100 ml @ 100 mls/hr ONCE ONCE IV ; Start 11/05/16 at 20:30; Stop 11/05/16 at 20:30; Status DC Docusate Sodium (Colace) 100 mg BID PO Last administered on 11/11/16 09:20; Start 11/07/16 at 13:00 Ondansetron HCl (Zofran Inj) 4 mg Q6HR PRN IV PUSH NAUSEA OR VOMITING Last administered on 11/10/16 18:39; Start 11/07/16 at 14:45 Polyethylene Glycol (Miralax) 17 gm DAILY PO Last administered on 11/11/16 09: 20; Start 11/08/16 at 16:45 Hydromorphone HCl (Dilaudid Pf Inj) 1 mg ONCE ONCE IV PUSH Last administered on 11/08/16 17:14; Start 11/08/16 at 16:45; Stop 11/08/16 at 16:46; Status DC Oxycodone/ Acetaminophen (Percocet 5-325 Mg) 1 tab Q4H PRN PO PAIN3-10 Last administered on 11/11/16 09:23; Start 11/09/16 at 13:30 Hydromorphone HCl (Dilaudid Pf Inj) 0.5 mg Q4H PRN IV PUSH BREAKTHROUGH PAIN Last administered on 11/11/16 06:56; Start 11/09/16 at 13:30 Polyethylene Glycol/ Electrolytes (Colyte Liq) 4,000 ml ONCE ONCE PO Last administered on 11/10/16 17:12; Start 11/10/16 at 17:00; Stop 11/10/16 at 17:01 ; Status DC Ondansetron HCl 4 mg 4 mg ONCE ONCE IV PUSH Last administered on 11/10/16 20: 45; Start 11/10/16 at 20:30; Stop 11/10/16 at 20:31; Status DC Sodium Chloride (NS 500 ml Inj) 500 ml @ 30 mls/hr [id number] PRN IV SEE LABEL COMMENTS; Start 11/11/16 at 03:00; Stop 11/14/16 at 02:59 Chlorhexidine Gluconate (Chlorhexidine 2% Cloth) 3 pack NURSE RECEPTIONIST PRN TOPICAL SEE LABEL COMMENTS; Start 11/11/16 at 03:00; Stop 11/14/16 at 02:59 A/P Assessment and Plan A/P Acute PID Pelvic Abscess continue Abx Planning for surgery today PRN pain treatments continued 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 Urology consulted and plan for ureteral stent placement at the time of the surgery. Hepatitis C Follow clinically Standard precautions Risky Sexual Behavior Poly-substance Abuse HIV Screen pending. Michaela Lee MD Nov 11, 2016 10:19
[2016-11-11 10:26] LABS: APTT (PATIENT) 30.1 SEC (24.3-30.1); INTERNATIONAL NORMALIZED RATIO 1.1 RATIO; PROTHROMBIN TIME - PATIENT 12.2 SEC (9.8-11.6)
[2016-11-11] MEDS ORDERED: PROPOFOL 200 MG/20 ML AMP IV ONE (10:54)
[2016-11-11] MEDS ORDERED: PHENYLEPH/NS 1000 MCG/10 ML SYR IV ONE (10:54)
[2016-11-11] MEDS ORDERED: NEOSTIGMINE 3 MG/3 ML SYR IV ONE (10:54)
[2016-11-11] MEDS ORDERED: ONDANSETRON HCL 4 MG/2 ML VIAL IV PUSH ONE (10:55)
[2016-11-11 12:21] VITALS: BP 118/60; PULSE 58; RESP 17; TEMP 98.1; O2SAT 99
[2016-11-11] MEDS ORDERED: MIDAZOLAM HCL 2 MG/2 ML VIAL ONE (14:13)
[2016-11-11] MEDS ORDERED: ACETAMINOPHEN 1000 MG/100 ML VIAL IV ONE (14:13)
[2016-11-11] MEDS ORDERED: fentaNYL CITRATE 250 MCG/5 ML AMP ONE (14:13)
[2016-11-11] MEDS ORDERED: FAMOTIDINE 20 MG/2 ML VIAL ONE (14:13)
[2016-11-11] MEDS ORDERED: diphenhydrAMINE HCL 50 MG/ML VIAL IV PRN (17:00)
[2016-11-11] MEDS ORDERED: diphenhydrAMINE HCL 25 MG CAP PO PRN (17:00)
[2016-11-11] MEDS ORDERED: ONDANSETRON ODT 4 MG TAB SL PRN (17:00)
[2016-11-11] MEDS ORDERED: DOCUSATE SODIUM 100 MG CAP PO PRN (17:00)
[2016-11-11] MEDS ORDERED: HYDROmorphone HCL PF 2 MG/ML VIAL IV PRN (17:00)
[2016-11-11] MEDS ORDERED: KETOROLAC TROMETHAMINE 30 MG/ML (IVP) VIAL IV PUSH PRN ×4 (17:00→22:15)
[2016-11-11] MEDS ORDERED: IBUPROFEN 600 MG TAB PO PRN (17:00)
[2016-11-11] MEDS ORDERED: *morphine SULFATE 8 MG/ML PERIprocedure ONLY ONE ×2 (17:10→17:18)
[2016-11-11] MEDS ORDERED: ceFOXitin INJ 2 GM in SODIUM CHLORIDE 0.9% INJ 100 ML IV SCH (17:15)
[2016-11-11] MEDS ORDERED: *hydrOXYzine 25 MG VIAL PERIprocedural Use ONLY IM ONE (17:21)
[2016-11-11] MEDS ORDERED: KETOROLAC TROMETHAMINE 30 MG/ML (IVP) VIAL IV PUSH SCH ×2 (18:00→20:00)
[2016-11-11] MEDS ORDERED: DO NOT ADM ANY ANTICOAGULANT DRUGS PRN (18:15)
[2016-11-11 18:25] VITALS: BP 95/56; PULSE 82; RESP 18; TEMP 97.8; O2SAT 96
[2016-11-11] MEDS: LACTATED RINGER'S 1000 ML INJ 1,000 ML IV SCH (19:00)
[2016-11-11 20:00] VITALS: BP 100/53; PULSE 84; RESP 17; TEMP 98.1; O2SAT 98
[2016-11-11] MEDS: SODIUM CHLORIDE 0.9% FLUSH 10 ML FLUSH IV FLUSH SCH (20:04)
[2016-11-11] MEDS: oxyCODONE/ACETAMINOPHEN 10 MG/325 MG TAB PO PRN (21:38)
[2016-11-12] VITALS: BP 122/68; PULSE 83; RESP 18; TEMP 98; O2SAT 96
[2016-11-12] MEDS: SODIUM CHLORIDE 0.9% FLUSH 10 ML FLUSH IV FLUSH PRN (00:17)
[2016-11-12] MEDS: KETOROLAC TROMETHAMINE 30 MG/ML (IVP) VIAL IV PUSH PRN ×3 (01:53→17:59)
[2016-11-12] MEDS: LACTATED RINGER'S 1000 ML INJ 1,000 ML IV SCH ×3 (02:00→11:36)
[2016-11-12 04:00] VITALS: BP 130/76; PULSE 63; RESP 18; TEMP 97.6; O2SAT 98
[2016-11-12] MEDS: oxyCODONE/ACETAMINOPHEN 10 MG/325 MG TAB PO PRN ×5 (04:08→20:30)
[2016-11-12] MEDS ORDERED: HYDROmorphone HCL PF 1 MG/ML VIAL IV PUSH ONE ×2 (06:00)
[2016-11-12] MEDS: ceFOXitin INJ 2 GM in SODIUM CHLORIDE 0.9% INJ 100 ML IV SCH ×3 (06:00→17:19)
--- NOTE | 2016-11-12 06:34 | MP ---
cc: CASIMIRO KOVACS MD DATE OF SURGERY: 11/11/2016 PREOPERATIVE DIAGNOSIS Large pelvic mass. POSTOPERATIVE DIAGNOSIS Large pelvic mass. SURGEON Casimiro Kovacs PROCEDURE PERFORMED 1. Cystoscopy. 2. Bilateral ureteral stent placement. PERTINENT FINDINGS 1. Significant mass effect noted on the posterior bladder wall. 2. Successful placement of bilateral 5-Bengali ureteral stents. HISTORY OF PRESENT ILLNESS Natalie Pereyra is a 41-year-old female was found to have a large pelvic mass/abscess for which she is undergoing resection today with gynecology. Request was made for bilateral ureteral stents in order to preserve the ureters for which she presents now. PROCEDURE IN DETAIL After proper informed consent was obtained, the patient was brought to the operating room and laid supine on the table. The patient was then placed in the lithotomy position, prepped and draped in standard surgical fashion. After a proper timeout was completed a rigid cystoscope was inserted into the urethra into the bladder. The urethral mucosa was within normal limits without abnormalities. No lesion was identified. Upon entering the bladder bilateral ureteral orifices were identified that appeared to be rather pinpoint and narrow in appearance. The posterior bladder wall had a mass effect noted compressing the posterior bladder wall, decreasing the total bladder capacity. At this point the right ureteral orifice was cannulated using the guidewire into the right collecting system. A 5-Bengali open-ended catheter was advanced over the wire into the right collecting system. This was then completed in the same fashion to the left side. After successful placement of bilateral ureteral stents over which there was no resistance identified, the scope was removed and a Good catheter was placed. The patient's bladder was emptied and the stents were secured to the urethral catheter. The patient tolerated this portion of the procedure well with no complications. Please see Dr. Briones's note for her portion of the operation. Casimiro Kovacs M.D. MARCY/KRISTEL /3:11 PM /6:05 AM
--- NOTE | 2016-11-12 07:26 | HHI.PR ---
FEED HANDLER Note Note S: Ms. Pereyra is POD 1 from bilateral ureteral stent placement followed by exploratory laparotomy with bilateral salpingo oophorectomy. Patient afebrile with stable vital signs overnight. Patient reports significant abdominal pain this morning. Other complaints not reported. Per nursing staff, patient has been in pain. Urinary catheter w/ bloody drainage overnight which has subsequently been clear after flushing. O: Vital Signs Date Time Temp Pulse Resp B/P Pulse Ox O2 Delivery O2 Flow Rate FiO2 11/12/16 04:00 97.6 63 18 130/76 98 11/11/16 20:00 Nasal Cannula 2.00 GENERAL: Patient appears comfortable, in no acute distress. SKIN: Warm and dry, no rashes appreciated. Vertical abdominal incision covered; dressing dry EYES: No scleral icterus, injection, or drainage. EOM grossly intact CARDIOVASCULAR: Regular rate and rhythm without murmurs. Normal peripheral perfusion in lower extremities. RESPIRATORY: Normal respiratory rate. Lungs clear to auscultation bilaterally. Abdominal: Soft, nondistended, painful to palpation. MUSCULOSKELETAL: No lower extremity swelling. No appreciated calf asymmetry. NEURO/PSYCH: Awake, alert, and oriented. Cranial nerves grossly normal. Grossly normal motor and sensory function. Vaginal exam: not performed Laboratory Tests Test 11/10/16 06:00 White Blood Count 11.2 TH/MM3 (4.0-11.0) Red Blood Count 3.66 MIL/MM3 (4.00-5.30) Hemoglobin 11.4 GM/DL (11.6-15.3) Hematocrit 32.9 % (35.0-46.0) Mean Corpuscular Volume 90.1 FL (80.0-100.0) Mean Corpuscular Hemoglobin 31.1 PG (27.0-34.0) Mean Corpuscular Hemoglobin 34.5 % Concent (32.0-36.0) Red Cell Distribution Width 13.8 % (11.6-17.2) Platelet Count 360 TH/MM3 (150-450) Mean Platelet Volume 6.5 FL (7.0-11.0) Sodium Level 139 MEQ/L (136-145) Potassium Level 4.3 MEQ/L (3.5-5.1) Chloride Level 102 MEQ/L (98-107) Carbon Dioxide Level 29.6 MEQ/L (21.0-32.0) Anion Gap 7 MEQ/L (5-15) Blood Urea Nitrogen 6 MG/DL (7-18) Creatinine 1.24 MG/DL (0.50-1.00) Estimat Glomerular Filtration 48 ML/MIN (>89) Rate Random Glucose 105 MG/DL (74-106) Calcium Level 8.1 MG/DL (8.5-10.1) A/P: Sepsis/TOA/PID Impression: POD 1 from bilateral ureteral stent placement followed by exploratory laparotomy with bilateral salpingo oophorectomy. Afebrile w/ stable vitals Leukocytosis downtrending: WBC (pending 11/12) 11.2 (11/10) <- 12.6 (/) <- 14 (8) <- 19.1 (/) <- 21.9 (11/05). CT A/P (11/05)adnexal and low pelvis bilateral cystic areas up to 7.3 cm -Continue IV antibiotics per primary team -Cefoxitin 2 g IV q6hrs -Doxycycline 100 mg BID -Metronidazole 500 mg IV q8hrs -Continue Good catheterization until cleared by Urology/MAGAZINE KEEPER -Pain control per hospitalist team Management of other medical problems including substance abuse per primary team (Thad Warren MD R2) Collaborating MD Comments Dr Basilio is the physician caring for this patient. s/p EVELYN/BSO (Allie Barcenas MD) Thad Warren MD R2 Nov 12, 2016 07:26 Allie Barcenas MD Nov 12, 2016 09:10
[2016-11-12 08:00] VITALS: BP 135/72; PULSE 70; RESP 16; TEMP 98; O2SAT 100
[2016-11-12] MEDS: DOCUSATE SODIUM 100 MG CAP PO SCH ×2 (08:11→20:20)
[2016-11-12] MEDS: FERROUS SULFATE 325 MG (65 MG ELEMENTAL IRON) TAB PO SCH (08:11)
[2016-11-12] MEDS: DOXYCYCLINE HYCLATE 100 MG CAP PO SCH ×2 (08:11→20:19)
[2016-11-12] MEDS: SODIUM CHLORIDE 0.9% FLUSH 10 ML FLUSH IV FLUSH SCH ×2 (08:11→20:20)
[2016-11-12] MEDS: POLYETHYLENE GLYCOL 17 GM PKG PO SCH (08:11)
--- NOTE | 2016-11-12 09:38 | HHI.PR ---
Subjective Remarks complaining of abdominal pain. afebrile. Objective Vitals Vital Signs Date Time Temp Pulse Resp B/P Pulse Ox O2 Delivery O2 Flow Rate FiO2 11/12/16 08:32 Room Air 11/12/16 08:00 98.0 70 16 135/72 100 11/12/16 04:00 97.6 63 18 130/76 98 11/12/16 00:00 98.0 83 18 122/68 96 11/11/16 20:00 Nasal Cannula 2.00 11/11/16 20:00 98.1 84 17 100/53 98 11/11/16 18:25 97.8 82 18 95/56 96 11/11/16 17:58 71 16 105/64 100 Nasal Cannula 2 11/11/16 17:45 73 16 109/63 100 Nasal Cannula 2 11/11/16 17:30 70 16 106/59 99 Nasal Cannula 2 11/11/16 17:15 75 16 106/65 99 Nasal Cannula 2 11/11/16 17:04 98.0 85 16 113/71 99 Nasal Cannula 2 11/11/16 12:21 98.1 58 17 118/60 99 11/11/16 09:48 Room Air I/O 11/11/16 11/11/16 11/11/16 11/12/16 11/12/16 11/12/16 07:00 15:00 23:00 07:00 15:00 23:00 Intake Total 0 ml 0 ml 2173 ml 848 ml Output Total 1150 ml 800 ml Balance 0 ml 0 ml 1023 ml 48 ml Intake Oral 0 ml 0 ml 240 ml IV Total 733 ml 848 ml Other 1200 ml Output Urine Total 850 ml 800 ml Estimated Blood Loss 300 ml # Voids 3 3 # Bowel Movements 0 3 Result Diagram: 11/10/16 0600 11/10/16 0600 Imaging Last Impressions Abdomen/Pelvis CT 11/05/16 1002 Signed Impressions: Service Date/Time: Saturday, November 05, 2016 10:37 - CONCLUSION: 1. Abnormal examination demonstrating large cystic structures arising from the adnexa and filling the low pelvis bilaterally. There are cystic areas evident measuring up to 7.3 cm in size. This is very difficult to visualize due to the lack of intravenous and oral contrast. Differential considerations would include hydrosalpinx and PID/TOA, bilateral cystic adnexal masses. Post contrast imaging may be of benefit for further assessment. Manuel Turk MD Objective Remarks GENERAL: This is a well-nourished, well-developed patient, in no respiratory distress. CARDIOVASCULAR: Regular rate and regular rhythm without murmurs, gallops, or rubs. RESPIRATORY: Clear to auscultation. Breath sounds equal bilaterally. No wheezes , rales, or rhonchi. GASTROINTESTINAL: Abdomen soft, lower abdominal tenderness, nondistended. Normal, active bowel sounds MUSCULOSKELETAL: Extremities without clubbing, cyanosis, or edema. NEURO: Alert & Oriented x4 to person, place, time, situation. Moves all ext x4 Procedures EVELYN/BSO cystoscopy/ bilateral ureteral stent placement Medications and IVs Current Medications Ondansetron HCl 4 mg 4 mg ONCE ONCE IVP Last administered on 11/05/16 09:12; Start 11/05/16 at 09:15; Stop 11/05/16 at 09:16; Status DC Sodium Chloride (NS 1000 ml Inj) 1,000 ml @ 125 mls/hr Q8H IV Last administered on 11/05/16 09:12; Start 11/05/16 at 09:01; Stop 11/05/16 at 17:00; Status DC Sodium Chloride (NS Flush) 2 ml UNSCH PRN IV FLUSH FLUSH AFTER USING IV ACCESS Last administered on 11/10/16 21:26; Start 11/05/16 at 09:15; Stop 11/11/16 at 18:58; Status DC Hydromorphone HCl 2 mg 2 mg ONCE ONCE IVS Last administered on 11/05/16 09:12 ; Start 11/05/16 at 09:15; Stop 11/05/16 at 09:16; Status DC Doxycycline Hyclate 100 mg/ Sodium Chloride 100 ml @ 100 mls/hr ONCE ONCE IV Last administered on 11/05/16 11:30; Start 11/05/16 at 11:30; Stop 11/05/16 at 12: 29; Status DC Cefoxitin Sodium 2 gm/Sodium Chloride 100 ml @ 200 mls/hr ONCE ONCE IV Last administered on 11/05/16 11:30; Start 11/05/16 at 11:30; Stop 11/05/16 at 11:59; Status DC Cefoxitin Sodium/ Sodium Chloride (Mefoxin Inj/NS Inj) 100 ml @ 200 mls/hr Q6H IV Last administered on 11/12/16 06:00; Start 11/05/16 at 18:00 Doxycycline Hyclate (Vibramycin) 100 mg BID PO Last administered on 11/12/16 08:11; Start 11/05/16 at 21:00 Oxycodone/ Acetaminophen (Percocet 5-325 Mg) 1 tab Q4H PRN PO PAIN SCALE 4 TO 10; Start 11/05/16 at 16:45; Status Cancel Ferrous Sulfate (Ferrous Sulfate) 325 mg BID PO ; Start 11/05/16 at 21:00; Stop 11/05/16 at 21:00; Status DC Tramadol/ Acetaminophen (Ultracet 37.5-325 Mg) 1 tab Q4H PRN PO PAIN SCALE 4 TO 10 Last administered on 11/09/16 11:55; Start 11/05/16 at 16:45; Stop 11/09/16 at 13:19; Status DC Methadone HCl (Dolophine) 5 mg DAILY PO Last administered on 11/09/16 08:07; Start 11/06/16 at 09:00; Stop 11/09/16 at 13:19; Status DC Ferrous Sulfate 325 mg 325 mg DAILY PO Last administered on 11/12/16 08:11; Start 11/06/16 at 09:00 Potassium Chloride/Sodium Chloride (NS + KCl 20 Meq Inj) 1,000 ml @ 42 mls/hr [id number] IV Last administered on 11/11/16 05:02; Start 11/05/16 at 17:00; Stop 11/11/16 at 18:52; Status DC Miscellaneous 1 ea 1 ea UNSCH PRN OTHER SEE LABEL COMMENTS; Start 11/05/16 at 17 :00 Metronidazole 100 ml @ 100 mls/hr Q8H IV Last administered on 11/11/16 11:33 ; Start 11/05/16 at 21:00; Stop 11/11/16 at 18:53; Status DC Metronidazole (Flagyl 500 Mg Inj) 100 ml @ 100 mls/hr ONCE ONCE IV ; Start 11/05/16 at 20:30; Stop 11/05/16 at 20:30; Status DC Docusate Sodium (Colace) 100 mg BID PO Last administered on 11/12/16 08:11; Start 11/07/16 at 13:00 Ondansetron HCl (Zofran Inj) 4 mg Q6HR PRN IV PUSH NAUSEA OR VOMITING Last administered on 11/10/16 18:39; Start 11/07/16 at 14:45; Stop 11/11/16 at 18:56 ; Status DC Polyethylene Glycol (Miralax) 17 gm DAILY PO Last administered on 11/12/16 08: 11; Start 11/08/16 at 16:45 Hydromorphone HCl (Dilaudid Pf Inj) 1 mg ONCE ONCE IV PUSH Last administered on 11/08/16 17:14; Start 11/08/16 at 16:45; Stop 11/08/16 at 16:46; Status DC Oxycodone/ Acetaminophen (Percocet 5-325 Mg) 1 tab Q4H PRN PO PAIN3-10 Last administered on 11/11/16 09:23; Start 11/09/16 at 13:30; Stop 11/11/16 at 18:59 ; Status DC Hydromorphone HCl (Dilaudid Pf Inj) 0.5 mg Q4H PRN IV PUSH BREAKTHROUGH PAIN Last administered on 11/11/16 11:29; Start 11/09/16 at 13:30; Stop 11/11/16 at 19:40; Status DC Polyethylene Glycol/ Electrolytes (Colyte Liq) 4,000 ml ONCE ONCE PO Last administered on 11/10/16 17:12; Start 11/10/16 at 17:00; Stop 11/10/16 at 17:01 ; Status DC Ondansetron HCl 4 mg 4 mg ONCE ONCE IV PUSH Last administered on 11/10/16 20: 45; Start 11/10/16 at 20:30; Stop 11/10/16 at 20:31; Status DC Sodium Chloride (NS 500 ml Inj) 500 ml @ 30 mls/hr [id number] PRN IV SEE LABEL COMMENTS; Start 11/11/16 at 03:00; Stop 11/11/16 at 19:43; Status DC Chlorhexidine Gluconate (Chlorhexidine 2% Cloth) 3 pack THERAPEUTIC STRATEGY LEAD PRN TOPICAL SEE LABEL COMMENTS; Start 11/11/16 at 03:00; Stop 11/14/16 at 02:59 Acetaminophen (Ofirmev Inj) 1,000 mg STK-MED ONCE IV ; Start 11/11/16 at 14:13; Stop 11/11/16 at 14:14; Status DC Famotidine (Pepcid Inj) 20 mg STK-MED ONCE .ROUTE ; Start 11/11/16 at 14:13; Stop 11/11/16 at 14:14; Status DC Midazolam HCl (Versed Inj) 2 mg STK-MED ONCE .ROUTE ; Start 11/11/16 at 14:13; Stop 11/11/16 at 14:14; Status DC Fentanyl Citrate 250 mcg 250 mcg STK-MED ONCE .ROUTE ; Start 11/11/16 at 14:13; Stop 11/11/16 at 14:14; Status DC Lactated Ringer's (Lr 1000 ml Inj) 1,000 ml @ 125 mls/hr Q8H IV Last administered on 11/12/16 08:12; Start 11/11/16 at 18:00 Sodium Chloride (NS Flush) 2 ml UNSCH PRN IV FLUSH FLUSH AFTER USING IV ACCESS Last administered on 11/12/16 00:17; Start 11/11/16 at 17:00 Sodium Chloride (NS Flush) 2 ml BID IV FLUSH Last administered on 11/12/16 08: 11; Start 11/11/16 at 21:00 Ibuprofen (Motrin) 600 mg Q6H PRN PO PAIN SCALE 1 TO 2; Start 11/11/16 at 17:00 Ketorolac Tromethamine (Toradol Inj) 15 mg Q6H IV PUSH ; Start 11/11/16 at 20:00 ; Stop 11/12/16 at 14:01; Status Cancel Ketorolac Tromethamine (Toradol Inj) 15 mg Q6H PRN IV PUSH PAIN SCALE 3 TO 5; Start 11/11/16 at 17:00; Stop 11/16/16 at 16:59; Status UNV Ketorolac Tromethamine (Toradol Inj) 30 mg Q8H PRN IV PUSH PAIN SCALE 1 TO 5; Start 11/11/16 at 17:00; Stop 11/11/16 at 20:05; Status DC Oxycodone/ Acetaminophen (Percocet 5-325 Mg) 1 tab Q4H PRN PO PAIN SCALE 3 TO 5; Start 11/11/16 at 17:00 Oxycodone/ Acetaminophen (Percocet 10-325 Mg) 1 tab Q4H PRN PO PAIN SCALE 6 TO 10 Last administered on 11/12/16 08:10; Start 11/11/16 at 17:00 Hydromorphone HCl (Dilaudid Pf Inj) 2 mg Q4H PRN IV Pain 6-10;if unable to take PO Last administered on 11/11/16 20:03; Start 11/11/16 at 17:00 Ondansetron HCl (Zofran Odt) 4 mg Q6H PRN SL NAUSEA OR VOMITING; Start at 17:00 Ondansetron HCl (Zofran Inj) 4 mg Q6H PRN IV PUSH NAUSEA OR VOMITING; Start 06/19 at 17:00 Diphenhydramine HCl (Benadryl Inj) 25 mg Q6H PRN IV ITCHING; Start 11/11/16 at 17:00 Diphenhydramine HCl (Benadryl) 25 mg Q6H PRN PO ITCHING; Start 11/11/16 at 17: 00 Docusate Sodium 100 mg 100 mg Q12H PRN PO CONSTIPATION; Start 11/11/16 at 17:00 Metronidazole 100 ml @ 100 mls/hr Q12H IV Last administered on 11/11/16 22:04 ; Start 11/11/16 at 23:00 Cefoxitin Sodium/ Sodium Chloride (Mefoxin Inj/NS Inj) 100 ml @ 200 mls/hr Q6H IV ; Start 11/11/16 at 17:15; Stop 11/11/16 at 18:57; Status DC Morphine Sulfate (*morphine INJ PERIprocedure ONLY) 8 mg STK-MED ONCE .ROUTE Last administered on 11/11/16 17:10; Start 11/11/16 at 17:10; Stop 11/11/16 at 17:11; Status DC Fentanyl Citrate (fentaNYL INJ) 100 mcg STK-MED ONCE .ROUTE ; Start 11/11/16 at 17:12; Stop 11/11/16 at 17:13; Status DC Morphine Sulfate (*morphine INJ PERIprocedure ONLY) 8 mg STK-MED ONCE .ROUTE Last administered on 11/11/16 17:18; Start 11/11/16 at 17:18; Stop 11/11/16 at 17:19; Status DC Hydroxyzine HCl (*VISTARIL INJ PERIprocedural ONLY) 25 mg STK-MED ONCE IM Last administered on 11/11/16 17:21; Start 11/11/16 at 17:21; Stop 11/11/16 at 17:22 ; Status DC Miscellaneous Information ALL NURSING DEPARTME... UNSCH PRN .XX SEE LABEL COMMENTS; Start 11/11/16 at 18:15; Stop 11/12/16 at 18:14 Ketorolac Tromethamine (Toradol Inj) 15 mg Q6H IV PUSH Last administered on 18:00; Start 11/11/16 at 18:00; Stop 11/11/16 at 20:02; Status DC Ketorolac Tromethamine (Toradol Inj) 30 mg Q8H PRN IV PUSH PAIN SCALE 1 TO 5; Start 11/11/16 at 20:15; Status Cancel Ketorolac Tromethamine (Toradol Inj) 30 mg Q8H PRN IV PUSH PAIN SCALE 1 TO 5 Last administered on 11/12/16 01:53; Start 11/12/16 at 02:00; Stop 11/17/16 at 01:59 Ketorolac Tromethamine (Toradol Inj) 30 mg Q8H PRN IV PUSH PAIN SCALE 1-5; Start 11/11/16 at 22:15; Stop 11/16/16 at 22:14; Status Cancel Hydromorphone HCl (Dilaudid Pf Inj) 0.5 mg ONCE ONCE IV PUSH Last administered on 11/12/16 00:17; Start 11/12/16 at 00:00; Stop 11/12/16 at 00:02 ; Status DC Hydromorphone HCl (Dilaudid Pf Inj) 0.2 mg ONCE ONCE IV PUSH Last administered on 11/12/16 06:34; Start 11/12/16 at 06:00; Stop 11/12/16 at 06:06 ; Status DC A/P Assessment and Plan A/P Acute PID Pelvic Abscess s/p EVELYN/ BSO and bilateral ureteral stent placement continue Abx PRN pain treatments continued Urology and [facility] following. Hepatitis C Follow clinically Standard precautions Risky Sexual Behavior Poly-substance Abuse HIV Screen negative. Michaela Lee MD Nov 12, 2016 09:38
[2016-11-12] MEDS: metroNIDAZOLE 500 MG INJ 100 ML IV SCH (10:18)
[2016-11-12 11:56] VITALS: BP 128/73; PULSE 73; RESP 16; TEMP 98.4; O2SAT 100
--- NOTE | 2016-11-12 13:18 | HHI.PR ---
Subjective Remarks Discussed surgery with pt, she expressed understanding, no flatus, no burping, ambulating alright, co pain but responding to meds Objective Vital Signs Vital Signs Date Time Temp Pulse Resp B/P Pulse Ox O2 Delivery O2 Flow Rate FiO2 11/12/16 11:56 98.4 73 16 128/73 100 11/12/16 08:32 Room Air 11/12/16 08:00 98.0 70 16 135/72 100 11/12/16 08:00 98.0 70 16 135/72 100 11/12/16 04:00 97.6 63 18 130/76 98 11/12/16 00:00 98.0 83 18 122/68 96 11/11/16 20:00 Nasal Cannula 2.00 11/11/16 20:00 98.1 84 17 100/53 98 11/11/16 18:25 97.8 82 18 95/56 96 11/11/16 17:58 71 16 105/64 100 Nasal Cannula 2 11/11/16 17:45 73 16 109/63 100 Nasal Cannula 2 11/11/16 17:30 70 16 106/59 99 Nasal Cannula 2 11/11/16 17:15 75 16 106/65 99 Nasal Cannula 2 11/11/16 17:04 98.0 85 16 113/71 99 Nasal Cannula 2 I/O 11/11/16 11/11/16 11/11/16 11/12/16 11/12/16 11/12/16 07:00 15:00 23:00 07:00 15:00 23:00 Intake Total 0 ml 0 ml 2173 ml 848 ml Output Total 1150 ml 800 ml Balance 0 ml 0 ml 1023 ml 48 ml Intake Oral 0 ml 0 ml 240 ml IV Total 733 ml 848 ml Other 1200 ml Output Urine Total 850 ml 800 ml Estimated Blood Loss 300 ml # Voids 3 3 # Bowel Movements 0 3 Result Diagram: 11/10/16 0600 11/10/16 0600 Objective Remarks Chest is clear, regular rate and rhythm. Abdomen is soft, hypoactive BS, slightly distended, appropriately tender Incision is clean and dry. Ext no CCE. A/P Assessment and Plan Post Op Day 1 POSD # 1 s/p EVELYN/BSO with bilateral TOA's doing well 1. advance diet slowly, clear liquid today 2. encourage ambulation 3. IS each hour Briones,Iveth C. MD Nov 12, 2016 13:18
[2016-11-12 14:01] LABS: BASOPHIL % 0.4 % (0.0-2.0); EOSINOPHIL % 0.2 % (0.0-4.0); HEMATOCRIT 30.7 % (35.0-46.0); HEMO FLAGS DIFF FINAL; LYMPH % 8.3 % (9.0-44.0); MEAN CELL VOLUME 90.6 FL (80.0-100.0); MEAN CORPUSCULAR HGB CONC 34.3 % (32.0-36.0); MONO % 3.2 % (0.0-8.0); NEUT % 87.9 % (16.0-70.0); PLATELET COUNT 502 TH/MM3 (150-450); RED BLOOD COUNT 3.39 MIL/MM3 (4.00-5.30); RED CELL DISTRIBUTION WIDTH 13.6 % (11.6-17.2); WHITE BLOOD COUNT 12.6 TH/MM3 (4.0-11.0)
[2016-11-12 14:19] LABS: BICARBONATE 26.4 MEQ/L (21.0-32.0); POTASSIUM 4.4 MEQ/L (3.5-5.1)
[2016-11-12 16:00] VITALS: BP 116/71; PULSE 87; RESP 16; TEMP 98.7; O2SAT 100
[2016-11-12 20:00] VITALS: BP 103/64; PULSE 83; RESP 20; TEMP 98.4; O2SAT 96
[2016-11-12] MEDS: ONDANSETRON HCL 4 MG/2 ML VIAL IV PUSH PRN (20:23)
[2016-11-13] VITALS: BP 110/64; PULSE 80; RESP 20; TEMP 97.8; O2SAT 99
[2016-11-13] MEDS ORDERED: HYDROmorphone HCL PF 2 MG/ML VIAL IV PUSH PRN (00:15)
[2016-11-13] MEDS: oxyCODONE/ACETAMINOPHEN 10 MG/325 MG TAB PO PRN ×6 (00:18→22:22)
[2016-11-13] MEDS: ceFOXitin INJ 2 GM in SODIUM CHLORIDE 0.9% INJ 100 ML IV SCH ×5 (00:19→23:29)
[2016-11-13] MEDS: metroNIDAZOLE 500 MG INJ 100 ML IV SCH ×3 (00:20→22:16)
[2016-11-13 04:00] VITALS: BP 111/71; PULSE 81; RESP 20; TEMP 97.6; O2SAT 100
[2016-11-13] MEDS: ONDANSETRON HCL 4 MG/2 ML VIAL IV PUSH PRN ×2 (05:13→20:31)
[2016-11-13] MEDS: SODIUM CHLORIDE 0.9% FLUSH 10 ML FLUSH IV FLUSH PRN (05:13)
[2016-11-13 08:00] VITALS: BP 113/69; PULSE 80; RESP 16; TEMP 98.4; O2SAT 98
--- NOTE | 2016-11-13 08:30 | HHI.PR ---
Subjective Remarks Pt reports some burping, ambulating, drinking well, no n/v, still trying to manage pain Objective Vital Signs Vital Signs Date Time Temp Pulse Resp B/P Pulse Ox O2 Delivery O2 Flow Rate FiO2 11/13/16 04:00 97.6 81 20 111/71 100 11/13/16 00:00 97.8 80 20 110/64 99 11/12/16 20:27 Room Air 11/12/16 20:00 98.4 83 20 103/64 96 11/12/16 16:00 98.7 87 16 116/71 100 11/12/16 11:56 98.4 73 16 128/73 100 11/12/16 08:32 Room Air I/O 11/12/16 11/12/16 11/12/16 11/13/16 11/13/16 11/13/16 07:00 15:00 23:00 07:00 15:00 23:00 Intake Total 848 ml 720 ml 320 ml 240 ml Output Total 800 ml Balance 48 ml 720 ml 320 ml 240 ml Intake Oral 720 ml 320 ml 240 ml IV Total 848 ml Output Urine Total 800 ml # Voids 2 1 3 # Bowel Movements 0 Result Diagram: 11/12/16 1255 11/12/16 1255 Objective Remarks Chest is clear, regular rate and rhythm. Abdomen is soft, normal BS, less distended than yesterday, appropriately tender Incision is clean and dry. Ext no CCE. A/P Assessment and Plan Post Op Day 2 POD #2 s/p EVELYN/BSO for bilateral TOAs improved from yesterday with ambulation, afebrile, no anemia, nl WBC, HIV neg 1. advance diet today 2. continue ambulation 3. IS 4. begin divigel daily Iveth Briones MD Nov 13, 2016 08:30
--- NOTE | 2016-11-13 09:08 | HHI.PR ---
Subjective Remarks looks somewhat more comfortable than yesterday although still complaining of abdominal pain. no nausea or vomiting. afebrile. Objective Vitals Vital Signs Date Time Temp Pulse Resp B/P Pulse Ox O2 Delivery O2 Flow Rate FiO2 11/13/16 04:00 97.6 81 20 111/71 100 11/13/16 00:00 97.8 80 20 110/64 99 11/12/16 20:27 Room Air 11/12/16 20:00 98.4 83 20 103/64 96 11/12/16 16:00 98.7 87 16 116/71 100 11/12/16 11:56 98.4 73 16 128/73 100 I/O 11/12/16 11/12/16 11/12/16 11/13/16 11/13/16 11/13/16 07:00 15:00 23:00 07:00 15:00 23:00 Intake Total 848 ml 720 ml 320 ml 240 ml Output Total 800 ml Balance 48 ml 720 ml 320 ml 240 ml Intake Oral 720 ml 320 ml 240 ml IV Total 848 ml Output Urine Total 800 ml # Voids 2 1 3 # Bowel Movements 0 Result Diagram: 11/12/16 1255 11/12/16 1255 Imaging Last Impressions Abdomen/Pelvis CT 11/05/16 1002 Signed Impressions: Service Date/Time: Saturday, November 05, 2016 10:37 - CONCLUSION: 1. Abnormal examination demonstrating large cystic structures arising from the adnexa and filling the low pelvis bilaterally. There are cystic areas evident measuring up to 7.3 cm in size. This is very difficult to visualize due to the lack of intravenous and oral contrast. Differential considerations would include hydrosalpinx and PID/TOA, bilateral cystic adnexal masses. Post contrast imaging may be of benefit for further assessment. Manuel Turk MD Objective Remarks GENERAL: This is a well-nourished, well-developed patient, in no respiratory distress. CARDIOVASCULAR: Regular rate and regular rhythm without murmurs, gallops, or rubs. RESPIRATORY: Clear to auscultation. Breath sounds equal bilaterally. No wheezes , rales, or rhonchi. GASTROINTESTINAL: Abdomen soft, lower abdominal tenderness, nondistended. Normal, active bowel sounds MUSCULOSKELETAL: Extremities without clubbing, cyanosis, or edema. NEURO: Alert & Oriented x4 to person, place, time, situation. Moves all ext x4 Procedures EVELYN/BSO cystoscopy/ bilateral ureteral stent placement Medications and IVs Current Medications Ondansetron HCl 4 mg 4 mg ONCE ONCE IVP Last administered on 11/05/16 09:12; Start 11/05/16 at 09:15; Stop 11/05/16 at 09:16; Status DC Sodium Chloride (NS 1000 ml Inj) 1,000 ml @ 125 mls/hr Q8H IV Last administered on 11/05/16 09:12; Start 11/05/16 at 09:01; Stop 11/05/16 at 17:00; Status DC Sodium Chloride (NS Flush) 2 ml UNSCH PRN IV FLUSH FLUSH AFTER USING IV ACCESS Last administered on 11/10/16 21:26; Start 11/05/16 at 09:15; Stop 11/11/16 at 18:58; Status DC Hydromorphone HCl 2 mg 2 mg ONCE ONCE IVS Last administered on 11/05/16 09:12 ; Start 11/05/16 at 09:15; Stop 11/05/16 at 09:16; Status DC Doxycycline Hyclate 100 mg/ Sodium Chloride 100 ml @ 100 mls/hr ONCE ONCE IV Last administered on 11/05/16 11:30; Start 11/05/16 at 11:30; Stop 11/05/16 at 12: 29; Status DC Cefoxitin Sodium 2 gm/Sodium Chloride 100 ml @ 200 mls/hr ONCE ONCE IV Last administered on 11/05/16 11:30; Start 11/05/16 at 11:30; Stop 11/05/16 at 11:59; Status DC Cefoxitin Sodium/ Sodium Chloride (Mefoxin Inj/NS Inj) 100 ml @ 200 mls/hr Q6H IV Last administered on 11/13/16 05:11; Start 11/05/16 at 18:00 Doxycycline Hyclate (Vibramycin) 100 mg BID PO Last administered on 11/12/16 20:19; Start 11/05/16 at 21:00 Oxycodone/ Acetaminophen (Percocet 5-325 Mg) 1 tab Q4H PRN PO PAIN SCALE 4 TO 10; Start 11/05/16 at 16:45; Status Cancel Ferrous Sulfate (Ferrous Sulfate) 325 mg BID PO ; Start 11/05/16 at 21:00; Stop 11/05/16 at 21:00; Status DC Tramadol/ Acetaminophen (Ultracet 37.5-325 Mg) 1 tab Q4H PRN PO PAIN SCALE 4 TO 10 Last administered on 11/09/16 11:55; Start 11/05/16 at 16:45; Stop 11/09/16 at 13:19; Status DC Methadone HCl (Dolophine) 5 mg DAILY PO Last administered on 11/09/16 08:07; Start 11/06/16 at 09:00; Stop 11/09/16 at 13:19; Status DC Ferrous Sulfate 325 mg 325 mg DAILY PO Last administered on 11/12/16 08:11; Start 11/06/16 at 09:00 Potassium Chloride/Sodium Chloride (NS + KCl 20 Meq Inj) 1,000 ml @ 42 mls/hr [id number] IV Last administered on 11/11/16 05:02; Start 11/05/16 at 17:00; Stop 11/11/16 at 18:52; Status DC Miscellaneous 1 ea 1 ea UNSCH PRN OTHER SEE LABEL COMMENTS; Start 11/05/16 at 17 :00 Metronidazole 100 ml @ 100 mls/hr Q8H IV Last administered on 11/11/16 11:33 ; Start 11/05/16 at 21:00; Stop 11/11/16 at 18:53; Status DC Metronidazole (Flagyl 500 Mg Inj) 100 ml @ 100 mls/hr ONCE ONCE IV ; Start 11/05/16 at 20:30; Stop 11/05/16 at 20:30; Status DC Docusate Sodium (Colace) 100 mg BID PO Last administered on 11/12/16 20:20; Start 11/07/16 at 13:00 Ondansetron HCl (Zofran Inj) 4 mg Q6HR PRN IV PUSH NAUSEA OR VOMITING Last administered on 11/10/16 18:39; Start 11/07/16 at 14:45; Stop 11/11/16 at 18:56 ; Status DC Polyethylene Glycol (Miralax) 17 gm DAILY PO Last administered on 11/12/16 08: 11; Start 11/08/16 at 16:45 Hydromorphone HCl (Dilaudid Pf Inj) 1 mg ONCE ONCE IV PUSH Last administered on 11/08/16 17:14; Start 11/08/16 at 16:45; Stop 11/08/16 at 16:46; Status DC Oxycodone/ Acetaminophen (Percocet 5-325 Mg) 1 tab Q4H PRN PO PAIN3-10 Last administered on 11/11/16 09:23; Start 11/09/16 at 13:30; Stop 11/11/16 at 18:59 ; Status DC Hydromorphone HCl (Dilaudid Pf Inj) 0.5 mg Q4H PRN IV PUSH BREAKTHROUGH PAIN Last administered on 11/11/16 11:29; Start 11/09/16 at 13:30; Stop 11/11/16 at 19:40; Status DC Polyethylene Glycol/ Electrolytes (Colyte Liq) 4,000 ml ONCE ONCE PO Last administered on 11/10/16 17:12; Start 11/10/16 at 17:00; Stop 11/10/16 at 17:01 ; Status DC Ondansetron HCl 4 mg 4 mg ONCE ONCE IV PUSH Last administered on 11/10/16 20: 45; Start 11/10/16 at 20:30; Stop 11/10/16 at 20:31; Status DC Sodium Chloride (NS 500 ml Inj) 500 ml @ 30 mls/hr [id number] PRN IV SEE LABEL COMMENTS; Start 11/11/16 at 03:00; Stop 11/11/16 at 19:43; Status DC Chlorhexidine Gluconate (Chlorhexidine 2% Cloth) 3 pack HAND THERMAL CUTTER PRN TOPICAL SEE LABEL COMMENTS; Start 11/11/16 at 03:00; Stop 11/14/16 at 02:59 Acetaminophen (Ofirmev Inj) 1,000 mg STK-MED ONCE IV ; Start 11/11/16 at 14:13; Stop 11/11/16 at 14:14; Status DC Famotidine (Pepcid Inj) 20 mg STK-MED ONCE .ROUTE ; Start 11/11/16 at 14:13; Stop 11/11/16 at 14:14; Status DC Midazolam HCl (Versed Inj) 2 mg STK-MED ONCE .ROUTE ; Start 11/11/16 at 14:13; Stop 11/11/16 at 14:14; Status DC Fentanyl Citrate 250 mcg 250 mcg STK-MED ONCE .ROUTE ; Start 11/11/16 at 14:13; Stop 11/11/16 at 14:14; Status DC Lactated Ringer's (Lr 1000 ml Inj) 1,000 ml @ 125 mls/hr Q8H IV Last administered on 11/12/16 11:36; Start 11/11/16 at 18:00; Stop 11/12/16 at 15:40 ; Status DC Sodium Chloride (NS Flush) 2 ml UNSCH PRN IV FLUSH FLUSH AFTER USING IV ACCESS Last administered on 11/13/16 05:13; Start 11/11/16 at 17:00 Sodium Chloride (NS Flush) 2 ml BID IV FLUSH Last administered on 11/12/16 20: 20; Start 11/11/16 at 21:00 Ibuprofen (Motrin) 600 mg Q6H PRN PO PAIN SCALE 1 TO 2; Start 11/11/16 at 17:00 Ketorolac Tromethamine (Toradol Inj) 15 mg Q6H IV PUSH ; Start 11/11/16 at 20:00 ; Stop 11/12/16 at 14:01; Status Cancel Ketorolac Tromethamine (Toradol Inj) 15 mg Q6H PRN IV PUSH PAIN SCALE 3 TO 5; Start 11/11/16 at 17:00; Stop 11/16/16 at 16:59; Status UNV Ketorolac Tromethamine (Toradol Inj) 30 mg Q8H PRN IV PUSH PAIN SCALE 1 TO 5; Start 11/11/16 at 17:00; Stop 11/11/16 at 20:05; Status DC Oxycodone/ Acetaminophen (Percocet 5-325 Mg) 1 tab Q4H PRN PO PAIN SCALE 3 TO 5; Start 11/11/16 at 17:00 Oxycodone/ Acetaminophen (Percocet 10-325 Mg) 1 tab Q4H PRN PO PAIN SCALE 6 TO 10 Last administered on 11/13/16 05:10; Start 11/11/16 at 17:00 Hydromorphone HCl (Dilaudid Pf Inj) 2 mg Q4H PRN IV Pain 6-10;if unable to take PO Last administered on 11/11/16 20:03; Start 11/11/16 at 17:00; Stop 07/19 at 15:40; Status DC Ondansetron HCl (Zofran Odt) 4 mg Q6H PRN SL NAUSEA OR VOMITING; Start at 17:00 Ondansetron HCl (Zofran Inj) 4 mg Q6H PRN IV PUSH NAUSEA OR VOMITING Last administered on 11/13/16 05:13; Start 11/11/16 at 17:00 Diphenhydramine HCl (Benadryl Inj) 25 mg Q6H PRN IV ITCHING; Start 11/11/16 at 17:00 Diphenhydramine HCl (Benadryl) 25 mg Q6H PRN PO ITCHING; Start 11/11/16 at 17: 00 Docusate Sodium 100 mg 100 mg Q12H PRN PO CONSTIPATION; Start 11/11/16 at 17:00 Metronidazole 100 ml @ 100 mls/hr Q12H IV Last administered on 11/13/16 00:20 ; Start 11/11/16 at 23:00 Cefoxitin Sodium/ Sodium Chloride (Mefoxin Inj/NS Inj) 100 ml @ 200 mls/hr Q6H IV ; Start 11/11/16 at 17:15; Stop 11/11/16 at 18:57; Status DC Morphine Sulfate (*morphine INJ PERIprocedure ONLY) 8 mg STK-MED ONCE .ROUTE Last administered on 11/11/16 17:10; Start 11/11/16 at 17:10; Stop 11/11/16 at 17:11; Status DC Fentanyl Citrate (fentaNYL INJ) 100 mcg STK-MED ONCE .ROUTE ; Start 11/11/16 at 17:12; Stop 11/11/16 at 17:13; Status DC Morphine Sulfate (*morphine INJ PERIprocedure ONLY) 8 mg STK-MED ONCE .ROUTE Last administered on 11/11/16 17:18; Start 11/11/16 at 17:18; Stop 11/11/16 at 17:19; Status DC Hydroxyzine HCl (*VISTARIL INJ PERIprocedural ONLY) 25 mg STK-MED ONCE IM Last administered on 11/11/16 17:21; Start 11/11/16 at 17:21; Stop 11/11/16 at 17:22 ; Status DC Miscellaneous Information ALL NURSING DEPARTME... UNSCH PRN .XX SEE LABEL COMMENTS; Start 11/11/16 at 18:15; Stop 11/12/16 at 18:14; Status DC Ketorolac Tromethamine (Toradol Inj) 15 mg Q6H IV PUSH Last administered on 18:00; Start 11/11/16 at 18:00; Stop 11/11/16 at 20:02; Status DC Ketorolac Tromethamine (Toradol Inj) 30 mg Q8H PRN IV PUSH PAIN SCALE 1 TO 5; Start 11/11/16 at 20:15; Status Cancel Ketorolac Tromethamine (Toradol Inj) 30 mg Q8H PRN IV PUSH PAIN SCALE 1 TO 5 Last administered on 11/12/16 17:59; Start 11/12/16 at 02:00; Stop 11/17/16 at 01:59 Ketorolac Tromethamine (Toradol Inj) 30 mg Q8H PRN IV PUSH PAIN SCALE 1-5; Start 11/11/16 at 22:15; Stop 11/16/16 at 22:14; Status Cancel Hydromorphone HCl (Dilaudid Pf Inj) 0.5 mg ONCE ONCE IV PUSH Last administered on 11/12/16 00:17; Start 11/12/16 at 00:00; Stop 11/12/16 at 00:02 ; Status DC Hydromorphone HCl (Dilaudid Pf Inj) 0.2 mg ONCE ONCE IV PUSH Last administered on 11/12/16 06:34; Start 11/12/16 at 06:00; Stop 11/12/16 at 06:06 ; Status DC Hydromorphone HCl (Dilaudid Pf Inj) 2 mg Q6HR PRN IV PUSH breakthrough pain Last administered on 11/13/16 01:21; Start 11/13/16 at 00:15; Stop 11/13/16 at 08:56; Status DC A/P Assessment and Plan A/P Acute PID Pelvic Abscess s/p EVELYN/ BSO and bilateral ureteral stent placement continue Abx PRN pain treatments continued post-op management 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 Michaela Lee MD Nov 13, 2016 09:08
[2016-11-13] MEDS: POLYETHYLENE GLYCOL 17 GM PKG PO SCH (09:47)
[2016-11-13] MEDS: DOCUSATE SODIUM 100 MG CAP PO SCH ×2 (09:48→20:30)
[2016-11-13] MEDS: DOXYCYCLINE HYCLATE 100 MG CAP PO SCH ×2 (09:48→20:30)
[2016-11-13] MEDS: FERROUS SULFATE 325 MG (65 MG ELEMENTAL IRON) TAB PO SCH (09:49)
[2016-11-13] MEDS: SODIUM CHLORIDE 0.9% FLUSH 10 ML FLUSH IV FLUSH SCH ×2 (09:51→22:17)
[2016-11-13] MEDS: KETOROLAC TROMETHAMINE 30 MG/ML (IVP) VIAL IV PUSH PRN ×2 (10:58→20:30)
[2016-11-13 12:00] VITALS: BP 123/73; PULSE 89; RESP 18; TEMP 98.2; O2SAT 97
[2016-11-13 16:00] VITALS: BP 125/65; PULSE 82; RESP 18; TEMP 97.9; O2SAT 97
[2016-11-13 20:00] VITALS: BP 120/72; PULSE 86; RESP 18; TEMP 98.1; O2SAT 98
[2016-11-14] VITALS (7 sets, daily range): BP systolic 106–123; BP diastolic 69–76; PULSE 73–92; RESP 17–20; TEMP 98.2–98.8; O2SAT 96–99
[2016-11-14] MEDS: oxyCODONE/ACETAMINOPHEN 10 MG/325 MG TAB PO PRN ×5 (03:03→21:27)
[2016-11-14] MEDS: ceFOXitin INJ 2 GM in SODIUM CHLORIDE 0.9% INJ 100 ML IV SCH ×4 (05:48→23:49)
[2016-11-14] MEDS: KETOROLAC TROMETHAMINE 30 MG/ML (IVP) VIAL IV PUSH PRN (05:48)
[2016-11-14] MEDS: SODIUM CHLORIDE 0.9% FLUSH 10 ML FLUSH IV FLUSH SCH ×2 (05:49→21:00)
[2016-11-14] MEDS: POLYETHYLENE GLYCOL 17 GM PKG PO SCH (09:06)
[2016-11-14] MEDS: DOXYCYCLINE HYCLATE 100 MG CAP PO SCH ×2 (09:07→20:56)
[2016-11-14] MEDS: DOCUSATE SODIUM 100 MG CAP PO SCH ×2 (09:07→20:56)
[2016-11-14] MEDS: FERROUS SULFATE 325 MG (65 MG ELEMENTAL IRON) TAB PO SCH (09:07)
[2016-11-14 10:13] LABS: BICARBONATE 27.3 MEQ/L (21.0-32.0)
[2016-11-14 10:14] LABS: POTASSIUM 4.5 MEQ/L (3.5-5.1)
[2016-11-14 10:24] LABS: AUTOMATED NEUTROPHIL # 7.7 TH/MM3 (1.8-7.7); BASOPHIL # 0.1 TH/MM3 (0-0.2); BASOPHIL % 0.5 % (0.0-2.0); EOSINOPHIL # 0.3 TH/MM3 (0-0.4); EOSINOPHIL % 2.9 % (0.0-4.0); HEMATOCRIT 33.9 % (35.0-46.0); LYMPH % 14.3 % (9.0-44.0); LYMPHOCYTE # 1.5 TH/MM3 (1.0-4.8); MEAN CORPUSCULAR HEMOGLOBIN 31.3 PG (27.0-34.0); MEAN CORPUSCULAR HGB CONC 34.4 % (32.0-36.0); MONO % 6.4 % (0.0-8.0); NEUT % 75.9 % (16.0-70.0); PLATELET COUNT 661 TH/MM3 (150-450); RED BLOOD COUNT 3.73 MIL/MM3 (4.00-5.30); RED CELL DISTRIBUTION WIDTH 13.7 % (11.6-17.2); WHITE BLOOD COUNT 10.2 TH/MM3 (4.0-11.0)
[2016-11-14 10:26] LABS: HEMO FLAGS AUTO DIFF
[2016-11-14] MEDS ORDERED: MAGNESIUM HYDROXIDE SUSP 30 ML CUP PO PRN (11:00)
--- NOTE | 2016-11-14 11:02 | HHI.PR ---
Subjective Remarks in no distress. but still with abdominal pain and nausea. complaining of constipation. no fever. Objective Vitals Vital Signs Date Time Temp Pulse Resp B/P Pulse Ox O2 Delivery O2 Flow Rate FiO2 11/14/16 08:02 98.2 73 17 111/69 96 11/14/16 08:00 Room Air 11/14/16 04:00 98.4 79 18 111/70 98 11/14/16 00:00 98.6 80 18 106/70 98 11/13/16 20:30 Room Air 11/13/16 20:00 98.1 86 18 120/72 98 11/13/16 16:00 97.9 82 18 125/65 97 11/13/16 12:00 98.2 89 18 123/73 97 I/O 11/13/16 11/13/16 11/13/16 11/14/16 11/14/16 11/14/16 07:00 15:00 23:00 07:00 15:00 23:00 Intake Total 240 ml 1356 ml 480 ml 240 ml Balance 240 ml 1356 ml 480 ml 240 ml Intake Oral 240 ml 960 ml 480 ml 240 ml IV Total 396 ml # Voids 3 2 2 2 # Bowel Movements 0 0 0 Result Diagram: 11/14/16 0943 11/14/16 0943 Imaging Last Impressions Abdomen/Pelvis CT 11/05/16 1002 Signed Impressions: Service Date/Time: Saturday, November 05, 2016 10:37 - CONCLUSION: 1. Abnormal examination demonstrating large cystic structures arising from the adnexa and filling the low pelvis bilaterally. There are cystic areas evident measuring up to 7.3 cm in size. This is very difficult to visualize due to the lack of intravenous and oral contrast. Differential considerations would include hydrosalpinx and PID/TOA, bilateral cystic adnexal masses. Post contrast imaging may be of benefit for further assessment. Manuel Turk MD Objective Remarks GENERAL: This is a well-nourished, well-developed patient, in no respiratory distress. CARDIOVASCULAR: Regular rate and regular rhythm without murmurs, gallops, or rubs. RESPIRATORY: Clear to auscultation. Breath sounds equal bilaterally. No wheezes , rales, or rhonchi. GASTROINTESTINAL: Abdomen soft, lower abdominal tenderness, nondistended. carlos enrique in place MUSCULOSKELETAL: Extremities without clubbing, cyanosis, or edema. NEURO: Alert & Oriented x4 to person, place, time, situation. Moves all ext x4 Procedures EVELYN/BSO cystoscopy/ bilateral ureteral stent placement Medications and IVs Current Medications Ondansetron HCl 4 mg 4 mg ONCE ONCE IVP Last administered on 11/05/16 09:12; Start 11/05/16 at 09:15; Stop 11/05/16 at 09:16; Status DC Sodium Chloride (NS 1000 ml Inj) 1,000 ml @ 125 mls/hr Q8H IV Last administered on 11/05/16 09:12; Start 11/05/16 at 09:01; Stop 11/05/16 at 17:00; Status DC Sodium Chloride (NS Flush) 2 ml UNSCH PRN IV FLUSH FLUSH AFTER USING IV ACCESS Last administered on 11/10/16 21:26; Start 11/05/16 at 09:15; Stop 11/11/16 at 18:58; Status DC Hydromorphone HCl 2 mg 2 mg ONCE ONCE IVS Last administered on 11/05/16 09:12 ; Start 11/05/16 at 09:15; Stop 11/05/16 at 09:16; Status DC Doxycycline Hyclate 100 mg/ Sodium Chloride 100 ml @ 100 mls/hr ONCE ONCE IV Last administered on 11/05/16 11:30; Start 11/05/16 at 11:30; Stop 11/05/16 at 12: 29; Status DC Cefoxitin Sodium 2 gm/Sodium Chloride 100 ml @ 200 mls/hr ONCE ONCE IV Last administered on 11/05/16 11:30; Start 11/05/16 at 11:30; Stop 11/05/16 at 11:59; Status DC Cefoxitin Sodium/ Sodium Chloride (Mefoxin Inj/NS Inj) 100 ml @ 200 mls/hr Q6H IV Last administered on 11/14/16 05:48; Start 11/05/16 at 18:00 Doxycycline Hyclate (Vibramycin) 100 mg BID PO Last administered on 11/14/16 09:07; Start 11/05/16 at 21:00 Oxycodone/ Acetaminophen (Percocet 5-325 Mg) 1 tab Q4H PRN PO PAIN SCALE 4 TO 10; Start 11/05/16 at 16:45; Status Cancel Ferrous Sulfate (Ferrous Sulfate) 325 mg BID PO ; Start 11/05/16 at 21:00; Stop 11/05/16 at 21:00; Status DC Tramadol/ Acetaminophen (Ultracet 37.5-325 Mg) 1 tab Q4H PRN PO PAIN SCALE 4 TO 10 Last administered on 11/09/16 11:55; Start 11/05/16 at 16:45; Stop 11/09/16 at 13:19; Status DC Methadone HCl (Dolophine) 5 mg DAILY PO Last administered on 11/09/16 08:07; Start 11/06/16 at 09:00; Stop 11/09/16 at 13:19; Status DC Ferrous Sulfate 325 mg 325 mg DAILY PO Last administered on 11/14/16 09:07; Start 11/06/16 at 09:00 Potassium Chloride/Sodium Chloride (NS + KCl 20 Meq Inj) 1,000 ml @ 42 mls/hr [id number] IV Last administered on 11/11/16 05:02; Start 11/05/16 at 17:00; Stop 11/11/16 at 18:52; Status DC Miscellaneous 1 ea 1 ea UNSCH PRN OTHER SEE LABEL COMMENTS; Start 11/05/16 at 17 :00 Metronidazole 100 ml @ 100 mls/hr Q8H IV Last administered on 11/11/16 11:33 ; Start 11/05/16 at 21:00; Stop 11/11/16 at 18:53; Status DC Metronidazole (Flagyl 500 Mg Inj) 100 ml @ 100 mls/hr ONCE ONCE IV ; Start 11/05/16 at 20:30; Stop 11/05/16 at 20:30; Status DC Docusate Sodium (Colace) 100 mg BID PO Last administered on 11/14/16 09:07; Start 11/07/16 at 13:00 Ondansetron HCl (Zofran Inj) 4 mg Q6HR PRN IV PUSH NAUSEA OR VOMITING Last administered on 11/10/16 18:39; Start 11/07/16 at 14:45; Stop 11/11/16 at 18:56 ; Status DC Polyethylene Glycol (Miralax) 17 gm DAILY PO Last administered on 11/14/16 09: 06; Start 11/08/16 at 16:45 Hydromorphone HCl (Dilaudid Pf Inj) 1 mg ONCE ONCE IV PUSH Last administered on 11/08/16 17:14; Start 11/08/16 at 16:45; Stop 11/08/16 at 16:46; Status DC Oxycodone/ Acetaminophen (Percocet 5-325 Mg) 1 tab Q4H PRN PO PAIN3-10 Last administered on 11/11/16 09:23; Start 11/09/16 at 13:30; Stop 11/11/16 at 18:59 ; Status DC Hydromorphone HCl (Dilaudid Pf Inj) 0.5 mg Q4H PRN IV PUSH BREAKTHROUGH PAIN Last administered on 11/11/16 11:29; Start 11/09/16 at 13:30; Stop 11/11/16 at 19:40; Status DC Polyethylene Glycol/ Electrolytes (Colyte Liq) 4,000 ml ONCE ONCE PO Last administered on 11/10/16 17:12; Start 11/10/16 at 17:00; Stop 11/10/16 at 17:01 ; Status DC Ondansetron HCl 4 mg 4 mg ONCE ONCE IV PUSH Last administered on 11/10/16 20: 45; Start 11/10/16 at 20:30; Stop 11/10/16 at 20:31; Status DC Sodium Chloride (NS 500 ml Inj) 500 ml @ 30 mls/hr [id number] PRN IV SEE LABEL COMMENTS; Start 11/11/16 at 03:00; Stop 11/11/16 at 19:43; Status DC Chlorhexidine Gluconate (Chlorhexidine 2% Cloth) 3 pack LOADING RACK SUPERVISOR PRN TOPICAL SEE LABEL COMMENTS; Start 11/11/16 at 03:00; Stop 11/14/16 at 02:59; Status DC Acetaminophen (Ofirmev Inj) 1,000 mg STK-MED ONCE IV ; Start 11/11/16 at 14:13; Stop 11/11/16 at 14:14; Status DC Famotidine (Pepcid Inj) 20 mg STK-MED ONCE .ROUTE ; Start 11/11/16 at 14:13; Stop 11/11/16 at 14:14; Status DC Midazolam HCl (Versed Inj) 2 mg STK-MED ONCE .ROUTE ; Start 11/11/16 at 14:13; Stop 11/11/16 at 14:14; Status DC Fentanyl Citrate 250 mcg 250 mcg STK-MED ONCE .ROUTE ; Start 11/11/16 at 14:13; Stop 11/11/16 at 14:14; Status DC Lactated Ringer's (Lr 1000 ml Inj) 1,000 ml @ 125 mls/hr Q8H IV Last administered on 11/12/16 11:36; Start 11/11/16 at 18:00; Stop 11/12/16 at 15:40 ; Status DC Sodium Chloride (NS Flush) 2 ml UNSCH PRN IV FLUSH FLUSH AFTER USING IV ACCESS Last administered on 11/13/16 05:13; Start 11/11/16 at 17:00 Sodium Chloride (NS Flush) 2 ml BID IV FLUSH Last administered on 11/14/16 05: 49; Start 11/11/16 at 21:00 Ibuprofen (Motrin) 600 mg Q6H PRN PO PAIN SCALE 1 TO 2; Start 11/11/16 at 17:00 Ketorolac Tromethamine (Toradol Inj) 15 mg Q6H IV PUSH ; Start 11/11/16 at 20:00 ; Stop 11/12/16 at 14:01; Status Cancel Ketorolac Tromethamine (Toradol Inj) 15 mg Q6H PRN IV PUSH PAIN SCALE 3 TO 5; Start 11/11/16 at 17:00; Stop 11/16/16 at 16:59; Status UNV Ketorolac Tromethamine (Toradol Inj) 30 mg Q8H PRN IV PUSH PAIN SCALE 1 TO 5; Start 11/11/16 at 17:00; Stop 11/11/16 at 20:05; Status DC Oxycodone/ Acetaminophen (Percocet 5-325 Mg) 1 tab Q4H PRN PO PAIN SCALE 3 TO 5; Start 11/11/16 at 17:00 Oxycodone/ Acetaminophen (Percocet 10-325 Mg) 1 tab Q4H PRN PO PAIN SCALE 6 TO 10 Last administered on 11/14/16 09:07; Start 11/11/16 at 17:00 Hydromorphone HCl (Dilaudid Pf Inj) 2 mg Q4H PRN IV Pain 6-10;if unable to take PO Last administered on 11/11/16 20:03; Start 11/11/16 at 17:00; Stop 07/19 at 15:40; Status DC Ondansetron HCl (Zofran Odt) 4 mg Q6H PRN SL NAUSEA OR VOMITING; Start at 17:00 Ondansetron HCl (Zofran Inj) 4 mg Q6H PRN IV PUSH NAUSEA OR VOMITING Last administered on 11/13/16 20:31; Start 11/11/16 at 17:00 Diphenhydramine HCl (Benadryl Inj) 25 mg Q6H PRN IV ITCHING; Start 11/11/16 at 17:00 Diphenhydramine HCl (Benadryl) 25 mg Q6H PRN PO ITCHING; Start 11/11/16 at 17: 00 Docusate Sodium 100 mg 100 mg Q12H PRN PO CONSTIPATION; Start 11/11/16 at 17:00 Metronidazole 100 ml @ 100 mls/hr Q12H IV Last administered on 11/13/16 22:16 ; Start 11/11/16 at 23:00 Cefoxitin Sodium/ Sodium Chloride (Mefoxin Inj/NS Inj) 100 ml @ 200 mls/hr Q6H IV ; Start 11/11/16 at 17:15; Stop 11/11/16 at 18:57; Status DC Morphine Sulfate (*morphine INJ PERIprocedure ONLY) 8 mg STK-MED ONCE .ROUTE Last administered on 11/11/16 17:10; Start 11/11/16 at 17:10; Stop 11/11/16 at 17:11; Status DC Fentanyl Citrate (fentaNYL INJ) 100 mcg STK-MED ONCE .ROUTE ; Start 11/11/16 at 17:12; Stop 11/11/16 at 17:13; Status DC Morphine Sulfate (*morphine INJ PERIprocedure ONLY) 8 mg STK-MED ONCE .ROUTE Last administered on 11/11/16 17:18; Start 11/11/16 at 17:18; Stop 11/11/16 at 17:19; Status DC Hydroxyzine HCl (*VISTARIL INJ PERIprocedural ONLY) 25 mg STK-MED ONCE IM Last administered on 11/11/16 17:21; Start 11/11/16 at 17:21; Stop 11/11/16 at 17:22 ; Status DC Miscellaneous Information ALL NURSING DEPARTME... UNSCH PRN .XX SEE LABEL COMMENTS; Start 11/11/16 at 18:15; Stop 11/12/16 at 18:14; Status DC Ketorolac Tromethamine (Toradol Inj) 15 mg Q6H IV PUSH Last administered on 18:00; Start 11/11/16 at 18:00; Stop 11/11/16 at 20:02; Status DC Ketorolac Tromethamine (Toradol Inj) 30 mg Q8H PRN IV PUSH PAIN SCALE 1 TO 5; Start 11/11/16 at 20:15; Status Cancel Ketorolac Tromethamine (Toradol Inj) 30 mg Q8H PRN IV PUSH PAIN SCALE 1 TO 5 Last administered on 11/14/16 05:48; Start 11/12/16 at 02:00; Stop 11/17/16 at 01:59 Ketorolac Tromethamine (Toradol Inj) 30 mg Q8H PRN IV PUSH PAIN SCALE 1-5; Start 11/11/16 at 22:15; Stop 11/16/16 at 22:14; Status Cancel Hydromorphone HCl (Dilaudid Pf Inj) 0.5 mg ONCE ONCE IV PUSH Last administered on 11/12/16 00:17; Start 11/12/16 at 00:00; Stop 11/12/16 at 00:02 ; Status DC Hydromorphone HCl (Dilaudid Pf Inj) 0.2 mg ONCE ONCE IV PUSH Last administered on 11/12/16 06:34; Start 11/12/16 at 06:00; Stop 11/12/16 at 06:06 ; Status DC Hydromorphone HCl (Dilaudid Pf Inj) 2 mg Q6HR PRN IV PUSH breakthrough pain Last administered on 11/13/16 01:21; Start 11/13/16 at 00:15; Stop 11/13/16 at 08:56; Status DC A/P Assessment and Plan A/P Acute PID Pelvic Abscess s/p EVELYN/ BSO and bilateral ureteral stent placement continue Abx PRN pain treatments continued post-op management per ADVERTISING ANALYST 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 constipation laxatives as needed. Discharge Planning when cleared by ADVERTISING ANALYST. Michaela Lee MD Nov 14, 2016 11:02
[2016-11-14] MEDS: ONDANSETRON HCL 4 MG/2 ML VIAL IV PUSH PRN (11:23)
[2016-11-14] MEDS: metroNIDAZOLE 500 MG INJ 100 ML IV SCH ×2 (11:33→23:49)
[2016-11-14 12:21] LABS: PLATELET ESTIMATE SMEAR HIGH (NORMAL); PLATELET MORPHOLOGY NORMAL (NORMAL); SCAN/DIFF AUTO DIFF CONFIRMED
[2016-11-14] MEDS ORDERED: BISACODYL 10 MG SUPP RECTAL ONE (13:00)
--- NOTE | 2016-11-14 13:48 | HHI.PR ---
Subjective Remarks Pt lying in bed again, comode in the room, pt reports emesis episode this morning after drinking MOM..pt denies flatus, still burping Objective Vital Signs Vital Signs Date Time Temp Pulse Resp B/P Pulse Ox O2 Delivery O2 Flow Rate FiO2 11/14/16 12:02 98.3 78 17 123/75 98 11/14/16 08:02 98.2 73 17 111/69 96 11/14/16 08:00 Room Air 11/14/16 04:00 98.4 79 18 111/70 98 11/14/16 00:00 98.6 80 18 106/70 98 11/13/16 20:30 Room Air 11/13/16 20:00 98.1 86 18 120/72 98 11/13/16 16:00 97.9 82 18 125/65 97 I/O 11/13/16 11/13/16 11/13/16 11/14/16 11/14/16 11/14/16 07:00 15:00 23:00 07:00 15:00 23:00 Intake Total 240 ml 1356 ml 480 ml 240 ml Balance 240 ml 1356 ml 480 ml 240 ml Intake Oral 240 ml 960 ml 480 ml 240 ml IV Total 396 ml # Voids 3 2 2 2 # Bowel Movements 0 0 0 Result Diagram: 11/14/1643 11/14/16942 Objective Remarks Chest is clear, regular rate and rhythm. Abdomen is soft, normal BS, less distended than yesterday, appropriately tender Incision is clean and dry. Ext no CCE. A/P Assessment and Plan Post Op Day 2 POD #3 s/p EVELYN/BSO for bilateral TOAs improved from yesterday with ambulation, afebrile, no anemia, nl WBC, HIV neg, vomitting x 1 1. only clear or soft solid diet 2. improve ambulation 3. IS 4. begin divigel daily 5. ducolax supp and or enema, no MOM 6. remove comode and use bathroom Iveth Briones MD Nov 14, 2016 13:48
[2016-11-15] MEDS: KETOROLAC TROMETHAMINE 30 MG/ML (IVP) VIAL IV PUSH PRN ×4 (01:26→23:05)
[2016-11-15] MEDS: oxyCODONE/ACETAMINOPHEN 10 MG/325 MG TAB PO PRN ×3 (05:04→17:54)
[2016-11-15] MEDS: ceFOXitin INJ 2 GM in SODIUM CHLORIDE 0.9% INJ 100 ML IV SCH ×3 (05:04→17:53)
[2016-11-15 05:35] VITALS: BP 115/64; PULSE 89; RESP 18; TEMP 98.4; O2SAT 98
[2016-11-15 08:00] VITALS: BP 107/57; PULSE 94; RESP 18; TEMP 98.6; O2SAT 96
[2016-11-15] MEDS: POLYETHYLENE GLYCOL 17 GM PKG PO SCH (08:57)
[2016-11-15] MEDS: FERROUS SULFATE 325 MG (65 MG ELEMENTAL IRON) TAB PO SCH (08:57)
[2016-11-15] MEDS: DOXYCYCLINE HYCLATE 100 MG CAP PO SCH ×2 (08:57→20:49)
[2016-11-15] MEDS: DOCUSATE SODIUM 100 MG CAP PO SCH ×2 (08:57→20:49)
[2016-11-15] MEDS: SODIUM CHLORIDE 0.9% FLUSH 10 ML FLUSH IV FLUSH SCH ×2 (08:58→20:50)
[2016-11-15] MEDS: metroNIDAZOLE 500 MG INJ 100 ML IV SCH ×2 (11:22→23:04)
--- NOTE | 2016-11-15 11:46 | HHI.PR ---
Subjective Remarks looks and feels somewhat more comfortable today. pain is better. no BM but passing gas. no fever. Objective Vitals Vital Signs Date Time Temp Pulse Resp B/P Pulse Ox O2 Delivery O2 Flow Rate FiO2 11/15/16 08:40 Room Air 11/15/16 08:00 98.6 94 18 107/57 96 11/15/16 05:35 98.4 89 18 115/64 98 11/14/16 23:42 98.8 86 20 110/70 99 11/14/16 21:20 Room Air 11/14/16 21:05 98.4 84 17 115/72 98 11/14/16 16:03 98.2 92 18 115/76 99 11/14/16 12:02 98.3 78 17 123/75 98 I/O 11/14/16 11/14/16 11/14/16 11/15/16 11/15/16 11/15/16 07:00 15:00 23:00 07:00 15:00 23:00 Intake Total 240 ml 240 ml 288 ml Balance 240 ml 240 ml 288 ml Intake Oral 240 ml 240 ml IV Total 288 ml # Voids 2 4 5 # Bowel Movements 0 0 0 Result Diagram: 11/14/16 0943 11/14/16 0943 Imaging Last Impressions Abdomen/Pelvis CT 11/05/16 1002 Signed Impressions: Service Date/Time: Saturday, November 05, 2016 10:37 - CONCLUSION: 1. Abnormal examination demonstrating large cystic structures arising from the adnexa and filling the low pelvis bilaterally. There are cystic areas evident measuring up to 7.3 cm in size. This is very difficult to visualize due to the lack of intravenous and oral contrast. Differential considerations would include hydrosalpinx and PID/TOA, bilateral cystic adnexal masses. Post contrast imaging may be of benefit for further assessment. Manuel Turk MD Objective Remarks GENERAL: This is a well-nourished, well-developed patient, in no respiratory distress. CARDIOVASCULAR: Regular rate and regular rhythm without murmurs, gallops, or rubs. RESPIRATORY: Clear to auscultation. Breath sounds equal bilaterally. No wheezes , rales, or rhonchi. GASTROINTESTINAL: Abdomen soft, lower abdominal tenderness, nondistended. carlos enrique in place MUSCULOSKELETAL: Extremities without clubbing, cyanosis, or edema. NEURO: Alert & Oriented x4 to person, place, time, situation. Moves all ext x4 Procedures EVELYN/BSO cystoscopy/ bilateral ureteral stent placement Medications and IVs Current Medications Ondansetron HCl 4 mg 4 mg ONCE ONCE IVP Last administered on 11/05/16 09:12; Start 11/05/16 at 09:15; Stop 11/05/16 at 09:16; Status DC Sodium Chloride (NS 1000 ml Inj) 1,000 ml @ 125 mls/hr Q8H IV Last administered on 11/05/16 09:12; Start 11/05/16 at 09:01; Stop 11/05/16 at 17:00; Status DC Sodium Chloride (NS Flush) 2 ml UNSCH PRN IV FLUSH FLUSH AFTER USING IV ACCESS Last administered on 11/10/16 21:26; Start 11/05/16 at 09:15; Stop 11/11/16 at 18:58; Status DC Hydromorphone HCl 2 mg 2 mg ONCE ONCE IVS Last administered on 11/05/16 09:12 ; Start 11/05/16 at 09:15; Stop 11/05/16 at 09:16; Status DC Doxycycline Hyclate 100 mg/ Sodium Chloride 100 ml @ 100 mls/hr ONCE ONCE IV Last administered on 11/05/16 11:30; Start 11/05/16 at 11:30; Stop 11/05/16 at 12: 29; Status DC Cefoxitin Sodium 2 gm/Sodium Chloride 100 ml @ 200 mls/hr ONCE ONCE IV Last administered on 11/05/16 11:30; Start 11/05/16 at 11:30; Stop 11/05/16 at 11:59; Status DC Cefoxitin Sodium/ Sodium Chloride (Mefoxin Inj/NS Inj) 100 ml @ 200 mls/hr Q6H IV Last administered on 11/15/16 11:22; Start 11/05/16 at 18:00 Doxycycline Hyclate (Vibramycin) 100 mg BID PO Last administered on 11/15/16 08:57; Start 11/05/16 at 21:00 Oxycodone/ Acetaminophen (Percocet 5-325 Mg) 1 tab Q4H PRN PO PAIN SCALE 4 TO 10; Start 11/05/16 at 16:45; Status Cancel Ferrous Sulfate (Ferrous Sulfate) 325 mg BID PO ; Start 11/05/16 at 21:00; Stop 11/05/16 at 21:00; Status DC Tramadol/ Acetaminophen (Ultracet 37.5-325 Mg) 1 tab Q4H PRN PO PAIN SCALE 4 TO 10 Last administered on 11/09/16 11:55; Start 11/05/16 at 16:45; Stop 11/09/16 at 13:19; Status DC Methadone HCl (Dolophine) 5 mg DAILY PO Last administered on 11/09/16 08:07; Start 11/06/16 at 09:00; Stop 11/09/16 at 13:19; Status DC Ferrous Sulfate 325 mg 325 mg DAILY PO Last administered on 11/15/16 08:57; Start 11/06/16 at 09:00 Potassium Chloride/Sodium Chloride (NS + KCl 20 Meq Inj) 1,000 ml @ 42 mls/hr [id number] IV Last administered on 11/11/16 05:02; Start 11/05/16 at 17:00; Stop 11/11/16 at 18:52; Status DC Miscellaneous 1 ea 1 ea UNSCH PRN OTHER SEE LABEL COMMENTS; Start 11/05/16 at 17 :00 Metronidazole 100 ml @ 100 mls/hr Q8H IV Last administered on 11/11/16 11:33 ; Start 11/05/16 at 21:00; Stop 11/11/16 at 18:53; Status DC Metronidazole (Flagyl 500 Mg Inj) 100 ml @ 100 mls/hr ONCE ONCE IV ; Start 11/05/16 at 20:30; Stop 11/05/16 at 20:30; Status DC Docusate Sodium (Colace) 100 mg BID PO Last administered on 11/15/16 08:57; Start 11/07/16 at 13:00 Ondansetron HCl (Zofran Inj) 4 mg Q6HR PRN IV PUSH NAUSEA OR VOMITING Last administered on 11/10/16 18:39; Start 11/07/16 at 14:45; Stop 11/11/16 at 18:56 ; Status DC Polyethylene Glycol (Miralax) 17 gm DAILY PO Last administered on 11/15/16 08: 57; Start 11/08/16 at 16:45 Hydromorphone HCl (Dilaudid Pf Inj) 1 mg ONCE ONCE IV PUSH Last administered on 11/08/16 17:14; Start 11/08/16 at 16:45; Stop 11/08/16 at 16:46; Status DC Oxycodone/ Acetaminophen (Percocet 5-325 Mg) 1 tab Q4H PRN PO PAIN3-10 Last administered on 11/11/16 09:23; Start 11/09/16 at 13:30; Stop 11/11/16 at 18:59 ; Status DC Hydromorphone HCl (Dilaudid Pf Inj) 0.5 mg Q4H PRN IV PUSH BREAKTHROUGH PAIN Last administered on 11/11/16 11:29; Start 11/09/16 at 13:30; Stop 11/11/16 at 19:40; Status DC Polyethylene Glycol/ Electrolytes (Colyte Liq) 4,000 ml ONCE ONCE PO Last administered on 11/10/16 17:12; Start 11/10/16 at 17:00; Stop 11/10/16 at 17:01 ; Status DC Ondansetron HCl 4 mg 4 mg ONCE ONCE IV PUSH Last administered on 11/10/16 20: 45; Start 11/10/16 at 20:30; Stop 11/10/16 at 20:31; Status DC Sodium Chloride (NS 500 ml Inj) 500 ml @ 30 mls/hr [id number] PRN IV SEE LABEL COMMENTS; Start 11/11/16 at 03:00; Stop 11/11/16 at 19:43; Status DC Chlorhexidine Gluconate (Chlorhexidine 2% Cloth) 3 pack [employer] PRN TOPICAL SEE LABEL COMMENTS; Start 11/11/16 at 03:00; Stop 11/14/16 at 02:59; Status DC Acetaminophen (Ofirmev Inj) 1,000 mg STK-MED ONCE IV ; Start 11/11/16 at 14:13; Stop 11/11/16 at 14:14; Status DC Famotidine (Pepcid Inj) 20 mg STK-MED ONCE .ROUTE ; Start 11/11/16 at 14:13; Stop 11/11/16 at 14:14; Status DC Midazolam HCl (Versed Inj) 2 mg STK-MED ONCE .ROUTE ; Start 11/11/16 at 14:13; Stop 11/11/16 at 14:14; Status DC Fentanyl Citrate 250 mcg 250 mcg STK-MED ONCE .ROUTE ; Start 11/11/16 at 14:13; Stop 11/11/16 at 14:14; Status DC Lactated Ringer's (Lr 1000 ml Inj) 1,000 ml @ 125 mls/hr Q8H IV Last administered on 11/12/16 11:36; Start 11/11/16 at 18:00; Stop 11/12/16 at 15:40 ; Status DC Sodium Chloride (NS Flush) 2 ml UNSCH PRN IV FLUSH FLUSH AFTER USING IV ACCESS Last administered on 11/13/16 05:13; Start 11/11/16 at 17:00 Sodium Chloride (NS Flush) 2 ml BID IV FLUSH Last administered on 11/15/16 08: 58; Start 11/11/16 at 21:00 Ibuprofen (Motrin) 600 mg Q6H PRN PO PAIN SCALE 1 TO 2; Start 11/11/16 at 17:00 Ketorolac Tromethamine (Toradol Inj) 15 mg Q6H IV PUSH ; Start 11/11/16 at 20:00 ; Stop 11/12/16 at 14:01; Status Cancel Ketorolac Tromethamine (Toradol Inj) 15 mg Q6H PRN IV PUSH PAIN SCALE 3 TO 5; Start 11/11/16 at 17:00; Stop 11/16/16 at 16:59; Status UNV Ketorolac Tromethamine (Toradol Inj) 30 mg Q8H PRN IV PUSH PAIN SCALE 1 TO 5; Start 11/11/16 at 17:00; Stop 11/11/16 at 20:05; Status DC Oxycodone/ Acetaminophen (Percocet 5-325 Mg) 1 tab Q4H PRN PO PAIN SCALE 3 TO 5; Start 11/11/16 at 17:00 Oxycodone/ Acetaminophen (Percocet 10-325 Mg) 1 tab Q4H PRN PO PAIN SCALE 6 TO 10 Last administered on 11/15/16 11:22; Start 11/11/16 at 17:00 Hydromorphone HCl (Dilaudid Pf Inj) 2 mg Q4H PRN IV Pain 6-10;if unable to take PO Last administered on 11/11/16 20:03; Start 11/11/16 at 17:00; Stop 07/19 at 15:40; Status DC Ondansetron HCl (Zofran Odt) 4 mg Q6H PRN SL NAUSEA OR VOMITING; Start at 17:00 Ondansetron HCl (Zofran Inj) 4 mg Q6H PRN IV PUSH NAUSEA OR VOMITING Last administered on 11/14/16 11:23; Start 11/11/16 at 17:00 Diphenhydramine HCl (Benadryl Inj) 25 mg Q6H PRN IV ITCHING; Start 11/11/16 at 17:00 Diphenhydramine HCl (Benadryl) 25 mg Q6H PRN PO ITCHING; Start 11/11/16 at 17: 00 Docusate Sodium 100 mg 100 mg Q12H PRN PO CONSTIPATION; Start 11/11/16 at 17:00 Metronidazole 100 ml @ 100 mls/hr Q12H IV Last administered on 11/15/16 11:22 ; Start 11/11/16 at 23:00 Cefoxitin Sodium/ Sodium Chloride (Mefoxin Inj/NS Inj) 100 ml @ 200 mls/hr Q6H IV ; Start 11/11/16 at 17:15; Stop 11/11/16 at 18:57; Status DC Morphine Sulfate (*morphine INJ PERIprocedure ONLY) 8 mg STK-MED ONCE .ROUTE Last administered on 11/11/16 17:10; Start 11/11/16 at 17:10; Stop 11/11/16 at 17:11; Status DC Fentanyl Citrate (fentaNYL INJ) 100 mcg STK-MED ONCE .ROUTE ; Start 11/11/16 at 17:12; Stop 11/11/16 at 17:13; Status DC Morphine Sulfate (*morphine INJ PERIprocedure ONLY) 8 mg STK-MED ONCE .ROUTE Last administered on 11/11/16 17:18; Start 11/11/16 at 17:18; Stop 11/11/16 at 17:19; Status DC Hydroxyzine HCl (*VISTARIL INJ PERIprocedural ONLY) 25 mg STK-MED ONCE IM Last administered on 11/11/16 17:21; Start 11/11/16 at 17:21; Stop 11/11/16 at 17:22 ; Status DC Miscellaneous Information ALL NURSING DEPARTME... UNSCH PRN .XX SEE LABEL COMMENTS; Start 11/11/16 at 18:15; Stop 11/12/16 at 18:14; Status DC Ketorolac Tromethamine (Toradol Inj) 15 mg Q6H IV PUSH Last administered on 18:00; Start 11/11/16 at 18:00; Stop 11/11/16 at 20:02; Status DC Ketorolac Tromethamine (Toradol Inj) 30 mg Q8H PRN IV PUSH PAIN SCALE 1 TO 5; Start 11/11/16 at 20:15; Status Cancel Ketorolac Tromethamine (Toradol Inj) 30 mg Q8H PRN IV PUSH PAIN SCALE 1 TO 5 Last administered on 11/15/16 08:58; Start 11/12/16 at 02:00; Stop 11/17/16 at 01:59 Ketorolac Tromethamine (Toradol Inj) 30 mg Q8H PRN IV PUSH PAIN SCALE 1-5; Start 11/11/16 at 22:15; Stop 11/16/16 at 22:14; Status Cancel Hydromorphone HCl (Dilaudid Pf Inj) 0.5 mg ONCE ONCE IV PUSH Last administered on 11/12/16 00:17; Start 11/12/16 at 00:00; Stop 11/12/16 at 00:02 ; Status DC Hydromorphone HCl (Dilaudid Pf Inj) 0.2 mg ONCE ONCE IV PUSH Last administered on 11/12/16 06:34; Start 11/12/16 at 06:00; Stop 11/12/16 at 06:06 ; Status DC Hydromorphone HCl (Dilaudid Pf Inj) 2 mg Q6HR PRN IV PUSH breakthrough pain Last administered on 11/13/16 01:21; Start 11/13/16 at 00:15; Stop 11/13/16 at 08:56; Status DC Magnesium Hydroxide (Milk Of Magnesia Liq) 30 ml DAILY PRN PO CONSTIPATION Last administered on 11/14/16 11:22; Start 11/14/16 at 11:00 Bisacodyl (Dulcolax Supp) 10 mg NOW ONCE RECTAL Last administered on 14:30; Start 11/14/16 at 13:00; Stop 11/14/16 at 13:01; Status DC A/P Assessment and Plan A/P Acute PID Pelvic Abscess s/p EVELYN/ BSO and bilateral ureteral stent placement continue Abx PRN pain treatments continued post-op management per FAMILY MEDICINE PHYSICIAN 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 constipation laxatives as needed. Discharge Planning when cleared by FAMILY MEDICINE PHYSICIAN. Michaela Lee MD Nov 15, 2016 11:46
[2016-11-15 12:00] VITALS: BP 117/73; PULSE 84; RESP 18; TEMP 98.2; O2SAT 100
--- NOTE | 2016-11-15 12:04 | HHI.PR ---
Subjective Remarks Pt passing flatus this am, no further vomitting, ambulating much better, less pain Objective Vital Signs Vital Signs Date Time Temp Pulse Resp B/P Pulse Ox O2 Delivery O2 Flow Rate FiO2 11/15/16 08:40 Room Air 11/15/16 08:00 98.6 94 18 107/57 96 11/15/16 05:35 98.4 89 18 115/64 98 11/14/16 23:42 98.8 86 20 110/70 99 11/14/16 21:20 Room Air 11/14/16 21:05 98.4 84 17 115/72 98 11/14/16 16:03 98.2 92 18 115/76 99 I/O 11/14/16 11/14/16 11/14/16 11/15/16 11/15/16 11/15/16 07:00 15:00 23:00 07:00 15:00 23:00 Intake Total 240 ml 240 ml 288 ml Balance 240 ml 240 ml 288 ml Intake Oral 240 ml 240 ml IV Total 288 ml # Voids 2 4 5 # Bowel Movements 0 0 0 Result Diagram: 11/14/16 0943 11/14/16 0943 Objective Remarks Chest is clear, regular rate and rhythm. Abdomen is soft, normal BS, less distended than yesterday, appropriately tender Incision is clean and dry. Ext no CCE. A/P Assessment and Plan Post Op Day 2 POD #4 s/p VEELYN/BSO for bilateral TOAs improved from yesterday with ambulation, afebrile, no anemia, nl WBC, HIV neg,flatus 1. only clear or soft solid diet 2. improve ambulation 3. IS 4. begin divigel daily 5. ducolax supp and or enema, no MOM 6. remove comode and use bathroom Iveth Briones MD Nov 15, 2016 12:04
[2016-11-15 16:00] VITALS: BP 115/72; PULSE 84; RESP 18; TEMP 97.9; O2SAT 100
[2016-11-15 20:34] VITALS: BP 123/77; PULSE 87; RESP 18; TEMP 97.8; O2SAT 98
[2016-11-15] MEDS: oxyCODONE/ACETAMINOPHEN 5 MG/325 MG TAB PO PRN (20:57)
[2016-11-16] MEDS: ceFOXitin INJ 2 GM in SODIUM CHLORIDE 0.9% INJ 100 ML IV SCH ×3 (00:20→10:55)
[2016-11-16 00:22] VITALS: BP 110/69; PULSE 78; RESP 16; TEMP 98; O2SAT 100
[2016-11-16] MEDS: oxyCODONE/ACETAMINOPHEN 5 MG/325 MG TAB PO PRN ×2 (02:57→10:54)
[2016-11-16 04:00] VITALS: BP 119/63; PULSE 79; RESP 18; TEMP 98.6; O2SAT 96
[2016-11-16 08:00] VITALS: BP 112/69; PULSE 78; RESP 18; TEMP 98.5; O2SAT 99
[2016-11-16] MEDS: DOCUSATE SODIUM 100 MG CAP PO SCH (08:04)
[2016-11-16] MEDS: DOXYCYCLINE HYCLATE 100 MG CAP PO SCH (08:04)
[2016-11-16] MEDS: FERROUS SULFATE 325 MG (65 MG ELEMENTAL IRON) TAB PO SCH (08:05)
[2016-11-16] MEDS: KETOROLAC TROMETHAMINE 30 MG/ML (IVP) VIAL IV PUSH PRN (08:05)
[2016-11-16] MEDS: SODIUM CHLORIDE 0.9% FLUSH 10 ML FLUSH IV FLUSH SCH (08:05)
[2016-11-16] MEDS: POLYETHYLENE GLYCOL 17 GM PKG PO SCH (08:10)
--- NOTE | 2016-11-16 10:23 | HHI.PR ---
Subjective Remarks in no acute distress. pain is fairly controlled. passing gas but no BM yet. no fever. Objective Vitals Vital Signs Date Time Temp Pulse Resp B/P Pulse Ox O2 Delivery O2 Flow Rate FiO2 11/16/16 08:00 98.5 78 18 112/69 99 11/16/16 04:00 98.6 79 18 119/63 96 11/16/16 00:22 98.0 78 16 110/69 100 11/15/16 20:55 Room Air 11/15/16 20:34 97.8 87 18 123/77 98 11/15/16 16:00 97.9 84 18 115/72 100 11/15/16 12:00 98.2 84 18 117/73 100 I/O 11/15/16 11/15/16 11/15/16 11/16/16 11/16/16 11/16/16 07:00 15:00 23:00 07:00 15:00 23:00 Intake Total 288 ml 720 ml Balance 288 ml 720 ml Intake Oral 720 ml IV Total 288 ml # Voids 5 3 6 # Bowel Movements 0 0 Result Diagram: 11/14/16 0943 11/14/16 0943 Imaging Last Impressions Abdomen/Pelvis CT 11/05/16 1002 Signed Impressions: Service Date/Time: Saturday, November 05, 2016 10:37 - CONCLUSION: 1. Abnormal examination demonstrating large cystic structures arising from the adnexa and filling the low pelvis bilaterally. There are cystic areas evident measuring up to 7.3 cm in size. This is very difficult to visualize due to the lack of intravenous and oral contrast. Differential considerations would include hydrosalpinx and PID/TOA, bilateral cystic adnexal masses. Post contrast imaging may be of benefit for further assessment. Manuel Turk MD Objective Remarks GENERAL: This is a well-nourished, well-developed patient, in no respiratory distress. CARDIOVASCULAR: Regular rate and regular rhythm without murmurs, gallops, or rubs. RESPIRATORY: Clear to auscultation. Breath sounds equal bilaterally. No wheezes , rales, or rhonchi. GASTROINTESTINAL: Abdomen soft, lower abdominal tenderness, mildly distended. carlos enrique in place MUSCULOSKELETAL: Extremities without clubbing, cyanosis, or edema. NEURO: Alert & Oriented x4 to person, place, time, situation. Moves all ext x4 Procedures EVELYN/BSO cystoscopy/ bilateral ureteral stent placement Medications and IVs Current Medications Ondansetron HCl 4 mg 4 mg ONCE ONCE IVP Last administered on 11/05/16 09:12; Start 11/05/16 at 09:15; Stop 11/05/16 at 09:16; Status DC Sodium Chloride (NS 1000 ml Inj) 1,000 ml @ 125 mls/hr Q8H IV Last administered on 11/05/16 09:12; Start 11/05/16 at 09:01; Stop 11/05/16 at 17:00; Status DC Sodium Chloride (NS Flush) 2 ml UNSCH PRN IV FLUSH FLUSH AFTER USING IV ACCESS Last administered on 11/10/16 21:26; Start 11/05/16 at 09:15; Stop 11/11/16 at 18:58; Status DC Hydromorphone HCl 2 mg 2 mg ONCE ONCE IVS Last administered on 11/05/16 09:12 ; Start 11/05/16 at 09:15; Stop 11/05/16 at 09:16; Status DC Doxycycline Hyclate 100 mg/ Sodium Chloride 100 ml @ 100 mls/hr ONCE ONCE IV Last administered on 11/05/16 11:30; Start 11/05/16 at 11:30; Stop 11/05/16 at 12: 29; Status DC Cefoxitin Sodium 2 gm/Sodium Chloride 100 ml @ 200 mls/hr ONCE ONCE IV Last administered on 11/05/16 11:30; Start 11/05/16 at 11:30; Stop 11/05/16 at 11:59; Status DC Cefoxitin Sodium/ Sodium Chloride (Mefoxin Inj/NS Inj) 100 ml @ 200 mls/hr Q6H IV Last administered on 11/16/16 06:01; Start 11/05/16 at 18:00 Doxycycline Hyclate (Vibramycin) 100 mg BID PO Last administered on 11/16/16 08:04; Start 11/05/16 at 21:00 Oxycodone/ Acetaminophen (Percocet 5-325 Mg) 1 tab Q4H PRN PO PAIN SCALE 4 TO 10; Start 11/05/16 at 16:45; Status Cancel Ferrous Sulfate (Ferrous Sulfate) 325 mg BID PO ; Start 11/05/16 at 21:00; Stop 11/05/16 at 21:00; Status DC Tramadol/ Acetaminophen (Ultracet 37.5-325 Mg) 1 tab Q4H PRN PO PAIN SCALE 4 TO 10 Last administered on 11/09/16 11:55; Start 11/05/16 at 16:45; Stop 11/09/16 at 13:19; Status DC Methadone HCl (Dolophine) 5 mg DAILY PO Last administered on 11/09/16 08:07; Start 11/06/16 at 09:00; Stop 11/09/16 at 13:19; Status DC Ferrous Sulfate 325 mg 325 mg DAILY PO Last administered on 11/16/16 08:05; Start 11/06/16 at 09:00 Potassium Chloride/Sodium Chloride (NS + KCl 20 Meq Inj) 1,000 ml @ 42 mls/hr [id number] IV Last administered on 11/11/16 05:02; Start 11/05/16 at 17:00; Stop 11/11/16 at 18:52; Status DC Miscellaneous 1 ea 1 ea UNSCH PRN OTHER SEE LABEL COMMENTS; Start 11/05/16 at 17 :00 Metronidazole 100 ml @ 100 mls/hr Q8H IV Last administered on 11/11/16 11:33 ; Start 11/05/16 at 21:00; Stop 11/11/16 at 18:53; Status DC Metronidazole (Flagyl 500 Mg Inj) 100 ml @ 100 mls/hr ONCE ONCE IV ; Start 11/05/16 at 20:30; Stop 11/05/16 at 20:30; Status DC Docusate Sodium (Colace) 100 mg BID PO Last administered on 11/16/16 08:04; Start 11/07/16 at 13:00 Ondansetron HCl (Zofran Inj) 4 mg Q6HR PRN IV PUSH NAUSEA OR VOMITING Last administered on 11/10/16 18:39; Start 11/07/16 at 14:45; Stop 11/11/16 at 18:56 ; Status DC Polyethylene Glycol (Miralax) 17 gm DAILY PO Last administered on 11/15/16 08: 57; Start 11/08/16 at 16:45 Hydromorphone HCl (Dilaudid Pf Inj) 1 mg ONCE ONCE IV PUSH Last administered on 11/08/16 17:14; Start 11/08/16 at 16:45; Stop 11/08/16 at 16:46; Status DC Oxycodone/ Acetaminophen (Percocet 5-325 Mg) 1 tab Q4H PRN PO PAIN3-10 Last administered on 11/11/16 09:23; Start 11/09/16 at 13:30; Stop 11/11/16 at 18:59 ; Status DC Hydromorphone HCl (Dilaudid Pf Inj) 0.5 mg Q4H PRN IV PUSH BREAKTHROUGH PAIN Last administered on 11/11/16 11:29; Start 11/09/16 at 13:30; Stop 11/11/16 at 19:40; Status DC Polyethylene Glycol/ Electrolytes (Colyte Liq) 4,000 ml ONCE ONCE PO Last administered on 11/10/16 17:12; Start 11/10/16 at 17:00; Stop 11/10/16 at 17:01 ; Status DC Ondansetron HCl 4 mg 4 mg ONCE ONCE IV PUSH Last administered on 11/10/16 20: 45; Start 11/10/16 at 20:30; Stop 11/10/16 at 20:31; Status DC Sodium Chloride (NS 500 ml Inj) 500 ml @ 30 mls/hr [id number] PRN IV SEE LABEL COMMENTS; Start 11/11/16 at 03:00; Stop 11/11/16 at 19:43; Status DC Chlorhexidine Gluconate (Chlorhexidine 2% Cloth) 3 pack [employer] PROFESSOR PRN TOPICAL SEE LABEL COMMENTS; Start 11/11/16 at 03:00; Stop 11/14/16 at 02:59; Status DC Acetaminophen (Ofirmev Inj) 1,000 mg STK-MED ONCE IV ; Start 11/11/16 at 14:13; Stop 11/11/16 at 14:14; Status DC Famotidine (Pepcid Inj) 20 mg STK-MED ONCE .ROUTE ; Start 11/11/16 at 14:13; Stop 11/11/16 at 14:14; Status DC Midazolam HCl (Versed Inj) 2 mg STK-MED ONCE .ROUTE ; Start 11/11/16 at 14:13; Stop 11/11/16 at 14:14; Status DC Fentanyl Citrate 250 mcg 250 mcg STK-MED ONCE .ROUTE ; Start 11/11/16 at 14:13; Stop 11/11/16 at 14:14; Status DC Lactated Ringer's (Lr 1000 ml Inj) 1,000 ml @ 125 mls/hr Q8H IV Last administered on 11/12/16 11:36; Start 11/11/16 at 18:00; Stop 11/12/16 at 15:40 ; Status DC Sodium Chloride (NS Flush) 2 ml UNSCH PRN IV FLUSH FLUSH AFTER USING IV ACCESS Last administered on 11/13/16 05:13; Start 11/11/16 at 17:00 Sodium Chloride (NS Flush) 2 ml BID IV FLUSH Last administered on 11/16/16 08: 05; Start 11/11/16 at 21:00 Ibuprofen (Motrin) 600 mg Q6H PRN PO PAIN SCALE 1 TO 2; Start 11/11/16 at 17:00 Ketorolac Tromethamine (Toradol Inj) 15 mg Q6H IV PUSH ; Start 11/11/16 at 20:00 ; Stop 11/12/16 at 14:01; Status Cancel Ketorolac Tromethamine (Toradol Inj) 15 mg Q6H PRN IV PUSH PAIN SCALE 3 TO 5; Start 11/11/16 at 17:00; Stop 11/16/16 at 16:59; Status UNV Ketorolac Tromethamine (Toradol Inj) 30 mg Q8H PRN IV PUSH PAIN SCALE 1 TO 5; Start 11/11/16 at 17:00; Stop 11/11/16 at 20:05; Status DC Oxycodone/ Acetaminophen (Percocet 5-325 Mg) 1 tab Q4H PRN PO PAIN SCALE 3 TO 5 Last administered on 11/16/16 02:57; Start 11/11/16 at 17:00 Oxycodone/ Acetaminophen (Percocet 10-325 Mg) 1 tab Q4H PRN PO PAIN SCALE 6 TO 10 Last administered on 11/15/16 17:54; Start 11/11/16 at 17:00 Hydromorphone HCl (Dilaudid Pf Inj) 2 mg Q4H PRN IV Pain 6-10;if unable to take PO Last administered on 11/11/16 20:03; Start 11/11/16 at 17:00; Stop 07/19 at 15:40; Status DC Ondansetron HCl (Zofran Odt) 4 mg Q6H PRN SL NAUSEA OR VOMITING; Start at 17:00 Ondansetron HCl (Zofran Inj) 4 mg Q6H PRN IV PUSH NAUSEA OR VOMITING Last administered on 11/14/16 11:23; Start 11/11/16 at 17:00 Diphenhydramine HCl (Benadryl Inj) 25 mg Q6H PRN IV ITCHING; Start 11/11/16 at 17:00 Diphenhydramine HCl (Benadryl) 25 mg Q6H PRN PO ITCHING; Start 11/11/16 at 17: 00 Docusate Sodium 100 mg 100 mg Q12H PRN PO CONSTIPATION; Start 11/11/16 at 17:00 Metronidazole 100 ml @ 100 mls/hr Q12H IV Last administered on 11/15/16 23:04 ; Start 11/11/16 at 23:00 Cefoxitin Sodium/ Sodium Chloride (Mefoxin Inj/NS Inj) 100 ml @ 200 mls/hr Q6H IV ; Start 11/11/16 at 17:15; Stop 11/11/16 at 18:57; Status DC Morphine Sulfate (*morphine INJ PERIprocedure ONLY) 8 mg STK-MED ONCE .ROUTE Last administered on 11/11/16 17:10; Start 11/11/16 at 17:10; Stop 11/11/16 at 17:11; Status DC Fentanyl Citrate (fentaNYL INJ) 100 mcg STK-MED ONCE .ROUTE ; Start 11/11/16 at 17:12; Stop 11/11/16 at 17:13; Status DC Morphine Sulfate (*morphine INJ PERIprocedure ONLY) 8 mg STK-MED ONCE .ROUTE Last administered on 11/11/16 17:18; Start 11/11/16 at 17:18; Stop 11/11/16 at 17:19; Status DC Hydroxyzine HCl (*VISTARIL INJ PERIprocedural ONLY) 25 mg STK-MED ONCE IM Last administered on 11/11/16 17:21; Start 11/11/16 at 17:21; Stop 11/11/16 at 17:22 ; Status DC Miscellaneous Information ALL NURSING DEPARTME... UNSCH PRN .XX SEE LABEL COMMENTS; Start 11/11/16 at 18:15; Stop 11/12/16 at 18:14; Status DC Ketorolac Tromethamine (Toradol Inj) 15 mg Q6H IV PUSH Last administered on 18:00; Start 11/11/16 at 18:00; Stop 11/11/16 at 20:02; Status DC Ketorolac Tromethamine (Toradol Inj) 30 mg Q8H PRN IV PUSH PAIN SCALE 1 TO 5; Start 11/11/16 at 20:15; Status Cancel Ketorolac Tromethamine (Toradol Inj) 30 mg Q8H PRN IV PUSH PAIN SCALE 1 TO 5 Last administered on 11/16/16 08:05; Start 11/12/16 at 02:00; Stop 11/17/16 at 01:59 Ketorolac Tromethamine (Toradol Inj) 30 mg Q8H PRN IV PUSH PAIN SCALE 1-5; Start 11/11/16 at 22:15; Stop 11/16/16 at 22:14; Status Cancel Hydromorphone HCl (Dilaudid Pf Inj) 0.5 mg ONCE ONCE IV PUSH Last administered on 11/12/16 00:17; Start 11/12/16 at 00:00; Stop 11/12/16 at 00:02 ; Status DC Hydromorphone HCl (Dilaudid Pf Inj) 0.2 mg ONCE ONCE IV PUSH Last administered on 11/12/16 06:34; Start 11/12/16 at 06:00; Stop 11/12/16 at 06:06 ; Status DC Hydromorphone HCl (Dilaudid Pf Inj) 2 mg Q6HR PRN IV PUSH breakthrough pain Last administered on 11/13/16 01:21; Start 11/13/16 at 00:15; Stop 11/13/16 at 08:56; Status DC Magnesium Hydroxide (Milk Of Magnesia Liq) 30 ml DAILY PRN PO CONSTIPATION Last administered on 11/14/16 11:22; Start 11/14/16 at 11:00 Bisacodyl (Dulcolax Supp) 10 mg NOW ONCE RECTAL Last administered on 14:30; Start 11/14/16 at 13:00; Stop 11/14/16 at 13:01; Status DC A/P Assessment and Plan A/P Acute PID Pelvic Abscess s/p EVELYN/ BSO and bilateral ureteral stent placement pathology with ; fallopian tube and ovary with tubo-ovarian abscess and endometriosis and paratubal cyst ( left). continue Abx PRN pain treatments continued post-op management per [employer] 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 constipation laxatives as needed. will try dulcolax today. Discharge Planning when cleared by [employer]. Michaela Lee MD Nov 16, 2016 10:23
[2016-11-16] MEDS ORDERED: BISACODYL 10 MG SUPP RECTAL ONE (10:30)
[2016-11-16] MEDS: metroNIDAZOLE 500 MG INJ 100 ML IV SCH (10:55)
[2016-11-16 12:00] VITALS: BP 113/60; PULSE 81; RESP 18; TEMP 97.9; O2SAT 98
[2016-11-16] MEDS ORDERED: OXYC1TAB36 PO (12:53)
--- NOTE | 2016-11-16 12:54 | HHI.DCPOC ---
Discharge Care Plan Your Health Problems Are: Fever, temperature>100.4 Incisions/drains Vaginal bleeding Report Symptoms to Your Doctor -Temperate above 100.5 degrees -Redness, of incision or excessive or foul smelling drainage -Unusual pain or calf pain -Increased vaginal bleeding -Painful or difficulty urinating -Feelings of extreme sadness or anxiety after 2 weeks Goals to Promote Your Health * To prevent worsening of your condition and complications * To maintain your health at the optimal level Directions to Meet Your Goals Take your medications as prescribed Follow your dietary instruction Follow activity as directed Ensure plenty of rest for recovery Drink fluids for hydration Keep your appointments as scheduled Take your immunizations and boosters as scheduled If your symptoms worsen call your PCP, if no PCP go to Urgent Care Center or Emergency Room Smoking is Dangerous to Your Health. Avoid second hand smoke Call the 24-hour crisis hotline for domestic abuse at Iveth Briones MD Nov 16, 2016 12:54
--- NOTE | 2016-11-16 14:25 | HHI.DS ---
Discharge Summary Admission Date Nov 05, 2016 at 11:40 Discharge Date: Nov 16, 2016 Admitting Diagnosis Severe pelvic inflammatory disease. leukocytosis. 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 about 2 weeks ago started complaining of lower abdominal pain patient. Also states that she just got out of assisted about that time. Initially had some whitish yellowish brownish discharge. Patient states that she uses occasionally uses a suction cup during sex and sometimes cup get stuck there. She made sure that the man/customer uses a condom. Patient complains of fever or chills denies any dysuria but states frequent urination. Her last menstrual cycles was 3 weeks ago but periodically gets vaginal leading and spotting. Persistence of this pain prompted consult to ER and on evaluation was noted to have elevated white count and patient was made admitted for further management. Patient is not very consistent and not straightforward with her history. a lot of inconsistencies with her history occasionally evading some questions and doesn't answer directly. She admits to cocaine and crack use. Was seen here sometime in June for abnormal uterine bleeding. Workup then showed a right ovarian complex mass. Patient was supposed to follow-up with [facility] service as outpatient but patient failed to do so. Was seen at [facility] when she had the same complaints and was prescribed October 29 doxycycline 100 mg twice a day and metronidazole 500 mg every 12. CBC/BMP: 11/14/16 0943 11/14/16 0943 Significant Findings Laboratory Tests Test 11/14/16 09:43 Red Blood Count 3.73 MIL/MM3 (4.00-5.30) Hematocrit 33.9 % (35.0-46.0) Platelet Count 661 TH/MM3 (150-450) Mean Platelet Volume 6.3 FL (7.0-11.0) Neutrophils (%) (Auto) 75.9 % (16.0-70.0) Platelet Estimate HIGH (NORMAL) Estimat Glomerular Filtration 75 ML/MIN (>89) Rate Imaging Last Impressions Abdomen/Pelvis CT 11/05/16 1002 Signed Impressions: Service Date/Time: Saturday, November 05, 2016 10:37 - CONCLUSION: 1. Abnormal examination demonstrating large cystic structures arising from the adnexa and filling the low pelvis bilaterally. There are cystic areas evident measuring up to 7.3 cm in size. This is very difficult to visualize due to the lack of intravenous and oral contrast. Differential considerations would include hydrosalpinx and PID/TOA, bilateral cystic adnexal masses. Post contrast imaging may be of benefit for further assessment. Manuel Turk MD PE at Discharge GENERAL: This is a well-nourished, well-developed patient, in no respiratory distress. CARDIOVASCULAR: Regular rate and regular rhythm without murmurs, gallops, or rubs. RESPIRATORY: Clear to auscultation. Breath sounds equal bilaterally. No wheezes , rales, or rhonchi. GASTROINTESTINAL: Abdomen soft, lower abdominal tenderness, mildly distended. carlos enrique in place MUSCULOSKELETAL: Extremities without clubbing, cyanosis, or edema. NEURO: Alert & Oriented x4 to person, place, time, situation. Moves all ext x4 Hospital Course Acute PID Pelvic Abscess s/p EVELYN/ BSO and bilateral ureteral stent placement pathology with ; fallopian tube and ovary with tubo-ovarian abscess and endometriosis and paratubal cyst ( left). continue Abx PRN pain treatments continued post-op management per [facility] 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 constipation laxatives as needed. will try dulcolax today. Pt Condition on Discharge: Fair Discharge Disposition: Discharge Home Discharge Time: <= 30 minutes Discharge Instructions DIET: Follow Instructions for: As Tolerated, No Restrictions Activities you can perform: Pelvic Rest Michaela Lee MD Nov 16, 2016 14:25
[2016-11-16 16:00] VITALS: BP 109/70; PULSE 82; RESP 18; TEMP 98; O2SAT 97
--- NOTE | 2016-11-17 09:41 | MP ---
cc: JEANNETTE BRIONES M.D. DATE OF SURGERY: 11/16/2016 PREOPERATIVE DIAGNOSIS: Suspected bilateral tubo-ovarian abscesses. POSTOPERATIVE DIAGNOSIS: Suspected bilateral tubo-ovarian abscesses. OPERATIVE PROCEDURE PERFORMED: Exploratory laparotomy with total abdominal hysterectomy and bilateral salpingo-oophorectomy with lysis of adhesions. SURGEON: Jeannette Briones MD. ESTIMATED BLOOD LOSS: 300 cc. FINDINGS AT SURGERY: Included a large 10 cm right tubo-ovarian abscess adherent to the cul-de-sac and right sidewall and left 6 cm tubo-ovarian abscess adherent to some small bowel and the left side wall. Normal-appearing uterus in general. COMPLICATIONS: None. DESCRIPTION OF THE PROCEDURE IN DETAIL: After proper consents were obtained, blood had been typed and screened, the patient was taken to the operating room where general endotracheal anesthesia was applied. She was then placed in the dorsal lithotomy position and sterilely prepped and draped and Dr. Begum came and placed bilateral ureteral stents to help us avoid ureteral injury during surgery. The stent placement went without difficulty. He dictated that procedure. We then placed her in the supine position and we went ahead and made a midline incision using a sharp knife. The incision went from the suprapubic on up to just inferior to the umbilicus and we then carried that down to the fascia using the Bovie cautery. Fascia was nicked in the midline and extended superolaterally on each end. We then identified the peritoneum, grasped it with two hemostats and entered sharply with Metzenbaum scissors. This was extended superiorly and inferiorly paying close attention to the bladder. We went ahead and explored the abdominopelvic cavity and I could palpate a very large right tubo-ovarian abscess adherent all along the sidewall down into the cul-de-sac and also a left tubo-ovarian abscess which was displaced by the right side up into the anterior pelvic area and along the left sidewall. The uterus appeared normal. I was able to bluntly dissect out the right tubo-ovarian abscess from the cul-de-sac and the sidewall and free it up, which then allowed us to do the same thing on the left side. There were some adhesions of the left tubo-ovarian abscess to some small bowel. I sharply took that down using the Metzenbaum scissors. At this time, we were then able to place the O'Ck-O'Hernandez retractor and packed away the bowel. We came across the right round ligament with a Crystal clamp, clamping, cutting, placing a #0 Vicryl suture through that. We then developed through the broad ligament until we were able to come across the infundibulopelvic ligament palpating the ureteral stent far below that. We went ahead and I came across the infundibulopelvic ligament using a curved Uriah clamp x2, clamping, cutting, placing the #0 Vicryl ties followed by suture ligature in the vascular pedicle with good hemostasis noted. We then went ahead and developed the bladder flap anteriorly on the right side. At that time I actually took off the right tube and ovary and sent it for frozen section. We then went ahead and came across the left round ligament with a Crystal clamp, clamping, cutting, placing a #0 Vicryl suture through that. We then developed through the broad ligament on the left side and then identified the infundibulopelvic and came beneath that with the curved Uriah clamps palpating the ureteral stent far below that and placing two Uriah clamps, cutting, placing #0 Vicryl suture free hand ties followed by a suture ligature in the vascular pedicle with the hemostasis noted. We then went ahead and developed a bladder flap anteriorly on the left side and went ahead and took off the right tube and ovary as well just so it was easier surgery. Once we developed the bladder flap anteriorly, we went ahead and skeletonized the uterine vessels. We came across them using the curved Uriah clamp x2, cutting, placing 30 Vicryl sutures through that with excellent hemostasis noted. I then was able to place straight Mastersons along the cardinal ligaments clamping, cutting, placing #0 Vicryl suture through that and the second bite with the straight Mastersons clamping, cutting, placing 30 Vicryl suture through that. We then were able to come beneath the cervix with a curved Azimoppelin clamps, clamping, cutting and cutting off the cervix and uterus and hand that for permanent pathology. We closed the vaginal cuff using #0 Vicryl sutures in an interrupted fashion. We then irrigated the abdominopelvic cavity copiously a couple of times. We then went ahead and overlaid the vaginal cuff with Interceed. There was some oozing along the right cul-de-sac where we did the blunt dissection. I went ahead and placed Asia all throughout that for hemostasis. We then unpacked the bowel. The counts were correct. We removed the retractor. We then closed the fascia using #0 Vicryl starting at each apex and meeting in the midline in a running fashion. We irrigated the subcutaneous. We closed the skin with carlos enrique. All sponge, lap and needle counts were correct x3. The patient was stable to the recovery room. MD EMMANUEL Seals/JCC /8:06 PM /9:40 AM
== END 2016-11-16 16:34 | disposition home or self-care (01) | DRG 854 ==
LOC: NEPE 08:32 → NEDA 11:40 → N04A 18:54
PROVIDERS: ADMIT Internal Medicine; ATTEND Internal Medicine
PROC: 0UTC0ZZ Resection of Cervix, Open Approach (ICD-10-PCS; 2016-11-11)
PROC: 0UT70ZZ Resection of Bilateral Fallopian Tubes, Open Approach (ICD-10-PCS; 2016-11-11)
PROC: 0T788DZ Dilation of Bilateral Ureters with Intraluminal Device, Via Natural or Artificial Opening Endoscopic (ICD-10-PCS; 2016-11-11)
PROC: 0UT90ZZ Resection of Uterus, Open Approach (ICD-10-PCS; principal; 2016-11-11 14:27)
PROC: 0UT20ZZ Resection of Bilateral Ovaries, Open Approach (ICD-10-PCS; 2016-11-11 14:27)
DX: A41.9 Sepsis, unspecified organism (principal); N73.0 Acute parametritis and pelvic cellulitis; N80.2 Endometriosis of fallopian tube; N80.0 Endometriosis of uterus; D64.9 Anemia, unspecified; N93.9 Abnormal uterine and vaginal bleeding, unspecified; N70.93 Salpingitis and oophoritis, unspecified; D25.1 Intramural leiomyoma of uterus; N83.8 Other noninflammatory disorders of ovary, fallopian tube and broad ligament; K59.00 Constipation, unspecified; B19.20 Unspecified viral hepatitis C without hepatic coma; N80.1 Endometriosis of ovary; F14.10 Cocaine abuse, uncomplicated; F17.210 Nicotine dependence, cigarettes, uncomplicated; F31.9 Bipolar disorder, unspecified; F43.10 Post-traumatic stress disorder, unspecified; F90.9 Attention-deficit hyperactivity disorder, unspecified type; Z80.0 Family history of malignant neoplasm of digestive organs; Z80.1 Family history of malignant neoplasm of trachea, bronchus and lung; Z80.3 Family history of malignant neoplasm of breast; Z88.5 Allergy status to narcotic agent; Z91.041 Radiographic dye allergy status
CPT/HCPCS: 74176; 76937; 80048; 80053; 80307; 81001; 83605; 83690; 84443; 84703; 85025; 85027; 85610; 85730; 86703; 86850; 86900; 86901; 86920; 87070; 87205; 87210; 87491; 87591; 88305; 88307; 88331; 94150; 96361; 96374; 96375; C1769; J0131; J0694; J1170; J1885; J2250; J2270; J2370; J2405; J2710; J3010; J3410; J3480; J7030; J7120

== ENCOUNTER 2017-12-26 20:04 | Emergency (ER) | payer SELFPAY ==
[~2017-12-26] VITALS: Ht 170.2 cm; Wt 55.0 kg
[~2017-12-26 20:04] MED LIST changes: -FERR325T PO; -METR-1 PO; +OXYC1TAB36 PO; -PROV10TA PO
[2017-12-26 20:06] VITALS: BP 144/85; PULSE 92; RESP 18; TEMP 97.5; O2SAT 98
[2017-12-26] MEDS ORDERED: NEUR300C PO (21:30)
--- NOTE | 2017-12-26 22:07 | PD ---
HPI Chief Complaint: Medical Psychotherapist Problem/Complaint Time Seen by Provider: 21:28 Travel History International Travel<30 days: No Contact w/Intl Traveler<30days: No Traveled to known affect area: No History of Present Illness HPI 42-year-old female with STD exposure. She states that her man is dripping and now she has a foul odor in her vagina. She has been using crack cocaine and thinks they are cutting it with something that is upsetting her stomach. She has no fever. No other symptoms at this time. She is requesting Pepcid and treatment for STD. She was offered assistance for drug abuse but declined [facility] Past Medical History Anemia: Yes Arthritis: No Autoimmune Disease: No Blood Disorders: Yes ("GENETIC BLEEDING DISORDER") Bipolar Disorder: Yes Anxiety: No Depression: No Heart Rhythm Problems: No Cancer: No Cardiovascular Problems: No High Cholesterol: No Chest Pain: No Congestive Heart Failure: No Cerebrovascular Accident: No Diabetes: No Diminished Hearing: No Endocrine: No Gastrointestinal Disorders: Yes GERD: Yes Genitourinary: No Headaches: Yes (only when she smokes crack pt states ) Hepatitis: Yes (TYPE C) Hiatal Hernia: No Immune Disorder: No Musculoskeletal: No Neurologic: No Psychiatric: Yes (PTSD, ) Reproductive: Yes Respiratory: No Integumentary: Yes (MULTIPLE SORES WITH SCABS, PT STATES " I PICK") Migraines: Yes Seizures: No Thyroid Disease: No Ulcer: No Tetanus Vaccination: Unknown Influenza Vaccination: No ?: Not : 3 Para: 1 Miscarriage: 1 : 1 Tubal Ligation: Yes Past Surgical History Abdominal Surgery: No AICD: No Arteriovenous Shunt: No Cardiac Surgery: No Ear Surgery: No Endocrine Surgery: No Eye Surgery: No Genitourinary Surgery: No Gynecologic Surgery: No Hysterectomy: Yes Insulin Pump: No Joint Replacement: No Oral Surgery: No Pacemaker: No Thoracic Surgery: No Other Surgery: Yes (acl reconstruction, knee surgery, arm and wrist surgery ) Social History Alcohol Use: Yes Tobacco Use: Yes Substance Use: Yes (meth, cocaine, (fake crack today)) Allergies-Medications (Allergen,Severity, Reaction): Coded Allergies: diatrizoate meglumine (Unverified Allergy, Severe, Anaphylaxis- THROAT CLOSES, HIVES, 12/26/17) gadobenic acid (Unverified Allergy, Severe, Anaphylaxis- THROAT CLOSES, HIVES, 12/26/17) gadodiamide (Unverified Allergy, Severe, Anaphylaxis- THROAT CLOSES, HIVES , 12/26/17) gadoteridol (Unverified Allergy, Severe, Anaphylaxis- THROAT CLOSES, HIVES , 12/26/17) iodixanol (Unverified Allergy, Severe, Anaphylaxis- THROAT CLOSES, HIVES, 12/26/17) iohexol (Unverified Allergy, Severe, Anaphylaxis- THROAT CLOSES, HIVES, ) codeine (Unverified Adverse Reaction, Severe, Nausea/Vomiting, 12/26/17) Reported Meds & Prescriptions Reported Meds & Active Scripts Active Reported Neurontin (Gabapentin) 300 Mg Cap 300 Mg PO TID Review of Systems Except as stated in HPI: all other systems reviewed are Neg General / Constitutional: No: Fever Genitourinary: Positive: Discharge Physical Exam Narrative GENERAL: 42-year-old female in no distress SKIN: Focused skin assessment warm/dry. HEAD: Atraumatic. Normocephalic. EYES: Pupils equal and round. No scleral icterus. No injection or drainage. ENT: No nasal bleeding or discharge. Mucous membranes pink and moist. NECK: Trachea midline. No JVD. CARDIOVASCULAR: Regular rate and rhythm. No murmur appreciated. RESPIRATORY: No accessory muscle use. Clear to auscultation. Breath sounds equal bilaterally. GASTROINTESTINAL: Abdomen soft, non-tender, nondistended. Hepatic and splenic margins not palpable. MUSCULOSKELETAL: No obvious deformities. No clubbing. No cyanosis. No edema. PELVIC: patient refused Data Data Last Documented VS Vital Signs Date Time Temp Pulse Resp B/P (MAP) Pulse Ox O2 Delivery O2 Flow Rate FiO2 12/26/17 20:06 97.5 92 18 144/85 (104) 98 Orders Orders Ceftriaxone Inj (Rocephin Inj) (12/26/17 22:15) Azithromycin (Zithromax) (12/27/17 09:00) Famotidine (Pepcid) (12/26/17 22:15) Azithromycin (Zithromax) (12/26/17 22:30) Lidocaine 1% Inj (Xylocaine 1% Inj) (12/26/17 22:30) Ed Discharge Order (12/26/17 23:06) MDM Medical Decision Making Medical Screen Exam Complete: Yes Emergency Medical Condition: Yes Differential Diagnosis STD exposure, drug abuse Narrative Course Patient seen and evaluated in the emergency department.. She was given Rocephin, azithromycin and Pepcid. She was discharged home. Diagnosis Primary Impression: Cocaine abuse Additional Impression: STD (female) Patient Instructions: Cocaine Abuse (DC), General Instructions, Sexually Transmitted Diseases (ED) Disposition: 01 DISCHARGE HOME Condition: Maria Esther Devi DO December 26, 2017 22:07
[2017-12-26] MEDS ORDERED: FAMOTIDINE 20 MG TAB PO ONE (22:15)
[2017-12-26] MEDS ORDERED: cefTRIAXone 250 MG VIAL IM ONE (22:15)
[2017-12-26] MEDS ORDERED: LIDOCAINE HCL 1% 20 ML VIAL INFIL ONE (22:30)
[2017-12-26] MEDS ORDERED: AZITHROMYCIN 250 MG TAB PO ONE (22:30)
[2017-12-27] MEDS ORDERED: AZITHROMYCIN 250 MG TAB PO SCH (09:00)
== END 2017-12-26 23:20 | disposition home or self-care (01) ==
LOC: NEPC 20:04
DX: F14.10 Cocaine abuse, uncomplicated (principal); Z20.2 Contact with and (suspected) exposure to infections with a predominantly sexual mode of transmission; Z72.0 Tobacco use
CPT/HCPCS: 96372; 99283; J0696